=== PATIENT | male | born 1955 | race Caucasian/White ===

== ENCOUNTER → 2016-03-13 | Outpatient (CLI) | payer BC ==
--- NOTE | 2016-03-16 09:36 | REP ---
RIGHT SHOULDER SERIES: Four views. HISTORY: Injury and a fall. Pain. FINDINGS: There is glenohumeral osteoarthritic spurring inferiorly and medially. Some soft tissue dystrophic calcification is seen at the superior aspect of the glenohumeral articulation adjacent to the acromion process. These changes are consistent with calcific tendonitis or bursitis. Glenohumeral and acromioclavicular joints are normally aligned. No fracture or subluxation is seen. IMPRESSION: Osteoarthritis and soft tissue periarticular calcification consistent with tendonitis or bursitis. No acute traumatic bony abnormality. Signed by Russel Avelar MD 03/16/2016 01:17 P
== END ==
LOC: M ADAMS 14:16
PROVIDERS: ATTEND Physician Assistant
DX: M25.511 Pain in right shoulder (principal)

== ENCOUNTER → 2016-03-30 | Outpatient (REF) | payer BC | LOC: M LAB REF 20:24 | PROVIDERS: ATTEND Physician Assistant Medical | DX: N39.0 Urinary tract infection, site not specified (principal) ==

== ENCOUNTER 2018-06-04 10:06 | Emergency (ER) | payer BC ==
[~2018-06-04] VITALS: Ht 180.3 cm; Wt 128.6 kg
[2018-06-04] MEDS ORDERED: CLON0.2T PO (11:22)
[2018-06-04] MEDS ORDERED: METO1TAB7 PO (11:22)
[2018-06-04] MEDS ORDERED: TAMS1CAP17 PO (11:22)
[2018-06-04] MEDS ORDERED: POTA10CA32 PO (11:22)
[2018-06-04] MEDS ORDERED: DICL75TA (11:22)
[2018-06-04] MEDS ORDERED: ADV250INH INH (11:22)
[2018-06-04] MEDS ORDERED: ATOR40TA75 PO (11:22)
[2018-06-04] MEDS ORDERED: TRAM50TA2 PO (11:22)
[2018-06-04] MEDS ORDERED: AMLO5TAB6 PO (11:22)
[2018-06-04] MEDS ORDERED: LOSA100T50 PO (11:22)
[2018-06-04] MEDS ORDERED: FURO20TA2 PO (11:22)
[2018-06-04] MEDS ORDERED: OMEP-221 PO (11:22)
[2018-06-04 12:12] LABS: HEMATOCRIT 40.7 % (42.0-52.0); MEAN CORPUSCULAR HEMOGLOBIN 30.5 pg (27.0-33.0); MEAN CORPUSCULAR HGB CONC 34.4 g/dl (32.0-36.5); MEAN CORPUSCULAR VOLUME 88.7 fl (80.0-96.0); PLATELET COUNT, AUTOMATED 267 10^3/uL (150-450); RED BLOOD COUNT 4.59 10^6/uL (4.30-6.10); WHITE BLOOD COUNT 4.4 10^3/uL (4.0-10.0)
[2018-06-04 12:15] LABS: ALBUMIN 3.3 GM/DL (3.2-5.2); ALT/SGPT 30 U/L (12-78); BILIRUBIN,DIRECT 0.3 MG/DL (0.0-0.2); BILIRUBIN,TOTAL 1.8 MG/DL (0.2-1.0); BLOOD UREA NITROGEN 10 MG/DL (7-18); CALCIUM LEVEL 8.2 MG/DL (8.8-10.2); CARBON DIOXIDE LEVEL 26 MEQ/L (21-32); CHLORIDE LEVEL 108 MEQ/L (98-107); CK-MB VALUE MASS < 1.0 NG/ML (<3.6); CPK CREATINE PHOSPHOKINASE 45 U/L (39-308); CREATININE FOR GFR 0.93 MG/DL (0.70-1.30); GLOMERULAR FILTRATION RATE > 60.0 (>49); GLUCOSE, FASTING 93 MG/DL (70-100); MB/CK RELATIVE INDEX 2.22 (< OR =4); POTASSIUM SERUM 3.4 MEQ/L (3.5-5.1); SODIUM LEVEL 142 MEQ/L (136-145); TOTAL PROTEIN 6.5 GM/DL (6.4-8.2); TROPONIN I < 0.02 NG/ML (< 0.10)
[2018-06-04 12:23] LABS: INR 0.95; PROTHROMBIN TIME 12.8 SECONDS (12.1-14.4)
[2018-06-04 12:24] LABS: PARTIAL THROMBOPLASTIN TIME 30.3 SECONDS (25.4-37.6)
[2018-06-04] MEDS ORDERED: POTASSIUM CHLORIDE 10 MEQ SR TABLET PO ONE (12:30)
[2018-06-04 12:32] LABS: ATYPICAL LYMPH 3 % (0-5); BASOPHILS 1 % (0-4); EOSINOPHILS 10 % (0-5); LYMPHOCYTES 16 % (16-52); MONOCYTES 8 % (0-8); NEUTROPHILS 62 % (35-75); PLATELET ESTIMATE NORMAL (NORMAL)
[2018-06-04] MEDS ORDERED: FUROSEMIDE 40 MG/4 ML VIAL (J1940) IV ONE (13:30)
[2018-06-04 13:43] VITALS: BP 123/63
--- NOTE | 2018-06-04 19:26 | ECGEPIP ---
Stationary ECG Study [facility] - ED Test Date: 2018-06-04 Pat Name: LIZETTE IRENE Department: Room: - Gender: M Limnologist: : [id number] Requested By: ELIJAH Fernández Order Number: [id number] Reading MD: Fantasma Sanchez Measurements Intervals [place] Rate: 76 P: 3 UT: 186 QRS: -18 QRSD: 94 T: 35 QT: 370 QTc: 418 Interpretive Statements SINUS RHYTHM INFERIOR MYOCARDIAL INFARCTION, PROBABLY OLD NO PRIORS FOR COMPARISON Electronically Signed On 06-04-2018 19:25:49 EDT by Fantasma Sanchez
--- NOTE | 2018-06-05 09:30 | REP ---
Chest x-ray: Two views. History: Leg edema. Comparison study: June 22, 2010. Findings: Right hemidiaphragm has a somewhat scalloped appearance unchanged from comparison studies. EKG monitoring electrodes overlie the chest. The lungs are well inflated and clear. Pleural angles are sharp. Heart is not enlarged. Pulmonary vasculature is not increased. No significant bony abnormality is seen. Impression: No active disease. Somewhat scalloped appearance of the right hemidiaphragm unchanged. Electronically Signed by Russel Avelar MD 06/04/2018 12:17 P
--- NOTE | 2018-06-05 09:31 | REP ---
Duplex extremity venous ultrasound: Bilateral lower extremities. History: Edema. Rule out DVT. Findings: The deep veins are anechoic and fully compressible from the groin to the popliteal fossa in the left and right lower extremity. Color flow imaging is homogeneous. Spectral Doppler interrogation demonstrates intact respiratory variation in flow and normal manual augmentation of flow. There is no evidence of deep vein thrombosis. Impression: Negative bilateral lower extremity duplex venous ultrasound. No evidence of deep vein thrombosis. Electronically Signed by Rsusel Avelar MD 06/04/2018 01:01 P
== END 2018-06-04 14:17 | disposition home or self-care (01) ==
LOC: M ED 10:06
DX: R60.0 Localized edema (principal); I10 Essential (primary) hypertension; J45.909 Unspecified asthma, uncomplicated; E78.9 Disorder of lipoprotein metabolism, unspecified; Z79.899 Other long term (current) drug therapy
CPT/HCPCS: 36415; 71046; 80048; 80076; 82550; 82553; 84439; 84443; 84484; 85025; 85610; 85730; 93005; 93041; 93970; 94760; 96374; 99284; J1940

== ENCOUNTER → 2018-11-22 | Outpatient (REF) | payer BC ==
[~2018-11-22] MED LIST: ADV250INH INH; AMLO5TAB6 PO; ATOR40TA75 PO; CLON0.2T PO; DICL75TA; FURO20TA2 PO; LOSA100T50 PO; METO1TAB7 PO; OMEP-221 PO; POTA10CA32 PO; TAMS1CAP17 PO; TRAM50TA2 PO
== END ==
LOC: M LAB REF 16:11
PROVIDERS: ATTEND Nurse Practitioner Adult Health
DX: E78.00 Pure hypercholesterolemia, unspecified (principal)

== ENCOUNTER → 2019-05-30 | Outpatient (CLI) | payer BC ==
[~2019-05-30] MED LIST changes: +PROHANCE 279.3MG/ML 15ML VIAL (A9576) As Ordered ONE; +PROHANCE 279.3MG/ML 5ML VIAL (A9576) As Ordered ONE
--- NOTE | 2019-05-30 11:50 | REP ---
MRI BRAIN AND INTERNAL AUDITORY CANALS WITHOUT AND WITH IV CONTRAST: HISTORY: Sudden idiopathic hearing loss left ear. 20 mL of intravenous Isovue 370 is administered. MRI TECHNIQUE: Axial, coronal and sagittal imaging planes were utilized. Thin section images are included through the posterior fossa before and after contrast. Sequences include spin-echo, FLAIR, turbo spin-echo, diffusion, and gradient echo images. MRI FINDINGS: Craniocervical junction and upper cervical cord are normal in appearance. No bony calvarial lesion is seen. The paranasal sinuses appear clear. No intraorbital abnormality is seen. Deep facial and skull base soft tissues are unremarkable. Lateral, third, and fourth ventricles are normal in size and position. Hooks-white differentiation pattern is normal above and below the tentorium. Thin section T2-weighted scans demonstrate normal seventh and eighth nerves in the internal auditory canals. The IACs are normal and symmetric in size and shape. No CP angle cistern mass lesion is seen. Vestibular and cochlear apparatus are unremarkable and symmetric. Diffusion weighted scans show no evidence of restricted diffusion to suggest acute ischemia. No infarct or mass is seen. Postcontrast images including thin sections through the posterior fossa show no abnormal intercanalicular or extra canalicular contrast enhancement. Whole brain postcontrast images show enhancement in normal vasculature. No abnormal intracranial contrast enhancement is appreciated. IMPRESSION: Negative MRI study of the brain and internal auditory canals with pre and postcontrast imaging. Electronically Signed by Russel Avelar MD 05/30/2019 12:14 P
== END ==
LOC: M RAD 09:32
PROVIDERS: ATTEND Specialist
DX: H91.22 Sudden idiopathic hearing loss, left ear (principal)
CPT/HCPCS: 70553; A9576

== ENCOUNTER 2020-01-16 07:20 | Observation (INO) | payer BC ==
[~2020-01-16] VITALS: Ht 180.3 cm; Wt 126.0 kg
[~2020-01-16 07:20] MED LIST changes: +AMLO1TAB24 PO; -AMLO5TAB6 PO; -PROHANCE 279.3MG/ML 15ML VIAL (A9576) As Ordered ONE; -PROHANCE 279.3MG/ML 5ML VIAL (A9576) As Ordered ONE
[2020-01-16] MEDS ORDERED: FLUT1BLS2 INH (07:43)
[2020-01-16] MEDS ORDERED: ALBU8.5H PO (07:43)
[2020-01-16] MEDS ORDERED: CLONI1TA PO (07:43)
[2020-01-16] MEDS ORDERED: ATOR40TA75 PO (07:43)
[2020-01-16] MEDS ORDERED: TRIA37.5 PO (07:43)
--- NOTE | 2020-01-16 07:53 | REPVR ---
PROCEDURE INFORMATION: Exam: CT Head Without Contrast Exam date and time: 01/16/2020 7:44 AM Age: 64 years old Clinical indication: Pain; Headache; Additional info: CVA TECHNIQUE: Imaging protocol: Computed tomography of the head without contrast. Radiation optimization: All CT scans at this facility use at least one of these dose optimization techniques: automated exposure control; mA and/or kV adjustment per patient size (includes targeted exams where dose is matched to clinical indication); or iterative reconstruction. Other technique: STROKE PROTOCOL was implemented. COMPARISON: OT MRI IAC'S W/O FOLL WITH CON 05/30/2019 10:10 AM FINDINGS: Brain: Symmetric prominence of the frontal sulci. No acute cortical infarct, mass effect, or intracranial hemorrhage. Cerebral ventricles: Normal configuration of the ventricles. Bones/joints: No acute calvarial pathology. Paranasal sinuses: No sinus fluid. Mastoid air cells: No mastoid effusion. Soft tissues: Unremarkable soft tissues. IMPRESSION: No acute intracranial pathology. ASSESSMENT: ASPECTS ([place] Stroke Program Early CT Score) is 10. THIS REPORT CONTAINS FINDINGS THAT MAY BE CRITICAL TO PATIENT CARE. The findings were verbally communicated via telephone conference with ERIC Knight at 7:53 AM EST on 01/16/2020. The findings were acknowledged and understood. Electronically signed by: Chucho Gamez On 01/16/2020 07:53:33 AM
[2020-01-16] MEDS ORDERED: ASPIRIN 81 MG CHEW TABLET PO ONE (08:15)
[2020-01-16] MEDS ORDERED: CLOPIDOGREL 75 MG TAB PO ONE (08:15)
[2020-01-16] MEDS ORDERED: ISOVUE-370 76% 100ML VIAL As Ordered ONE (08:18)
[2020-01-16 08:29] LABS: HEMATOCRIT 42.8 % (42.0-52.0); HEMOGLOBIN 14.6 g/dl (13.5-17.5); MEAN CORPUSCULAR HEMOGLOBIN 30.7 pg (27.0-33.0); MEAN CORPUSCULAR HGB CONC 34.1 g/dl (32.0-36.5); MEAN CORPUSCULAR VOLUME 89.9 fl (80.0-96.0); PLATELET COUNT, AUTOMATED 450 10^3/uL (150-450); RED BLOOD COUNT 4.76 10^6/uL (4.30-6.10); WHITE BLOOD COUNT 4.9 10^3/uL (4.0-10.0)
[2020-01-16] MEDS ORDERED: CLON0.2T PO (08:30)
[2020-01-16] MEDS ORDERED: NIACCAP PO (08:34)
[2020-01-16] MEDS ORDERED: MAGN100T PO (08:34)
[2020-01-16] MEDS ORDERED: FLON1SPR NARES (08:34)
[2020-01-16] MEDS ORDERED: TRAM50TA2 PO (08:34)
[2020-01-16 08:39] LABS: INR 0.95; PROTHROMBIN TIME 12.9 SECONDS (12.5-14.3)
[2020-01-16 08:40] LABS: PARTIAL THROMBOPLASTIN TIME 30.7 SECONDS (24.2-38.5)
--- NOTE | 2020-01-16 08:54 | REP ---
INDICATION: CVA COMPARISON: None. TECHNIQUE: Portable AP view of the chest FINDINGS: The mediastinum and cardiac silhouette are stable and within normal limits for portable technique. The lung garner are clear without acute consolidation, effusion, or pneumothorax. Skeletal structures are intact. IMPRESSION: No acute cardiopulmonary process appreciated. <Electronically signed by Chuck Soler > 01/16/20 [id number]
[2020-01-16 08:56] LABS: CK-MB VALUE MASS < 1.0 NG/ML (<3.6); CPK CREATINE PHOSPHOKINASE 92 U/L (39-308); MB/CK RELATIVE INDEX 1.09 (< OR =4); TROPONIN I < 0.02 NG/ML (< 0.10)
--- NOTE | 2020-01-16 09:06 | REPVR ---
PROCEDURE INFORMATION: Exam: CT Angiography Neck With Contrast Exam date and time: 01/16/2020 8:23 AM Age: 64 years old Clinical indication: Pain; Additional info: Multiple tias TECHNIQUE: Imaging protocol: Computed tomography angiography of the neck with intravenous contrast. 3D rendering (Not supervised by radiologist): MIP and/or 3D reconstructed images were created by the technologist. Radiation optimization: All CT scans at this facility use at least one of these dose optimization techniques: automated exposure control; mA and/or kV adjustment per patient size (includes targeted exams where dose is matched to clinical indication); or iterative reconstruction. Contrast material: ISO 370; Contrast volume: 75 ml; Contrast route: INTRAVENOUS (IV); COMPARISON: No relevant prior studies available. FINDINGS: Right common carotid artery: No stenosis. No dissection or occlusion. Right internal carotid artery: No stenosis of the extracranial segment. No dissection or occlusion. Right external carotid artery: No occlusion or stenosis of the origin. Right vertebral artery: No stenosis. No dissection or occlusion. Left common carotid artery: No stenosis. No dissection or occlusion. Left internal carotid artery: No stenosis of the extracranial segment. No dissection or occlusion. Left external carotid artery: No occlusion or stenosis of the origin. Left vertebral artery: No stenosis. No dissection or occlusion. Bones/joints: Multilevel degenerative disease. Mild facet arthropathy. Soft tissues: Normal. No significant soft tissue swelling. Lungs: Bilateral dependent atelectasis. IMPRESSION: No acute findings. REFERENCES: NASCET CRITERIA. The degree of internal carotid artery stenosis is based on NASCET criteria. Normal is no stenosis. Mild is less than 50% stenosis. Moderate is 50-69% stenosis. Severe is 70% to 99% stenosis. Total occlusion is no detectable patent lumen. Electronically signed by: Ron Finley On 01/16/2020 09:06:34 AM
--- NOTE | 2020-01-16 09:12 | REPVR ---
PROCEDURE INFORMATION: Exam: CT Angiography Head With Contrast Exam date and time: 01/16/2020 8:23 AM Age: 64 years old Clinical indication: Pain; Additional info: Multiple tias TECHNIQUE: Imaging protocol: Computed tomography angiography of the head with intravenous contrast. 3D rendering (Not supervised by radiologist): MIP and/or 3D reconstructed images were created by the technologist. Radiation optimization: All CT scans at this facility use at least one of these dose optimization techniques: automated exposure control; mA and/or kV adjustment per patient size (includes targeted exams where dose is matched to clinical indication); or iterative reconstruction. Contrast material: ISO 370; Contrast volume: 75 ml; Contrast route: INTRAVENOUS (IV); COMPARISON: CT Head without contrast 01/16/2020 7:40 AM FINDINGS: ANTERIOR CIRCULATION: Right internal carotid artery: Unremarkable. Intracranial segment is patent with no significant stenosis. No aneurysm. Right middle cerebral artery: Unremarkable. No occlusion or significant stenosis. No aneurysm. Right anterior cerebral artery: Unremarkable. No occlusion or significant stenosis. No aneurysm. Left internal carotid artery: Unremarkable. Intracranial segment is patent with no significant stenosis. No aneurysm. Left middle cerebral artery: Unremarkable. No occlusion or significant stenosis. No aneurysm. Left anterior cerebral artery: Unremarkable. No occlusion or significant stenosis. No aneurysm. POSTERIOR CIRCULATION: Right vertebral artery: Unremarkable. No occlusion or significant stenosis. No aneurysm. Left vertebral artery: Unremarkable. No occlusion or significant stenosis. No aneurysm. Basilar artery: Unremarkable. No occlusion or significant stenosis. No aneurysm. Right posterior cerebral artery: Unremarkable. No occlusion or significant stenosis. No aneurysm. Left posterior cerebral artery: origin of the left posterior cerebral artery. Brain: No definite mass, mass effect, or midline shift. Cerebral ventricles: No ventriculomegaly. Bones/joints: Unremarkable. No acute fracture. Soft tissues: Unremarkable. IMPRESSION: No acute findings. Electronically signed by: Ron Finley On 01/16/2020 09:11:59 AM
[2020-01-16 09:27] LABS: ATYPICAL LYMPH 4 % (0-5); EOSINOPHILS 4 % (0-3); LYMPHOCYTES 16 % (16-44); MONOCYTES 14 % (0-5); NEUTROPHILS 54 % (28-66); PLATELET ESTIMATE NORMAL (NORMAL)
[2020-01-16] MEDS ORDERED: traMADol 50 MG TAB PO PRN (09:45)
[2020-01-16] MEDS ORDERED: ALBUTEROL 90 MCG/ACT 8GM HFA INHALER INH PRN (09:45)
--- NOTE | 2020-01-16 09:54 | HPEPDOC ---
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 She was talking to himself and writing down the milage she felt like his left side of the face felt droopy and numb, including the lips and he had some slurred speech which lasted for about 2 minutes. He sat down on the chair hit when away at 6 AM someone who works with him had arrived, he was telling him what to do when again he had an episode of slurred speech lasting for about 2 minutes, which also went away after he sat down, 10 minutes later when he got up, it hit him again the other worker went to his boss to alert him that something was wrong and he was then brought into the emergency room. Patient's glucose in the ER was 88. EKG was sinus rhythm. CT of the head, CTA of the brain were all negative. Patient was given aspirin 325 mg and 1 dose of Plavix. Neurologist, Dr. Jacob recommended observation overnight. MRI, MRA of the brain as well as MRA of the carotids. Hospitalist was called to admit the patient. Patient has had no prior episodes in the past of these neurological symptoms. He denies bilateral upper or lower extremity weakness, numbness or tingling sensation. He denies any fever, chills, cough, shortness of breath, nausea, vomiting, diarrhea, impending doom, chest pain, pressure, tightness, palpitations, lightheadedness or dizziness. Has had no other prodromal symptoms. Patient denies any history of diabetes with glucose of 88 on arrival in the emergency room. He otherwise denies any bright red blood per rectum, melena, black tarry stools, polyuria, polyphagia, weight gain, weight loss, dysuria, urgency, frequency and has no other complaints. No coVId exposu re. PAST MEDICAL HISTORY: obese hypertension, asthma, hypercholesterolemia, COCO, vertigo, PAST SURGICAL HISTORY: None SOCIAL HISTORY: Denies tobacco, alcohol, recreational drug use. Works for a [employer] FAMILY HISTORY: . Father at the age of 54. Hypertension, unknown cause of . Mother age 73. Alzheimer's dementia and hypertension ALLERGIES: Please see below. REVIEW OF SYSTEMS: 10 point review of systems negative aside from positive findings in HPI HOME MEDICATIONS: Please see below. ALLERGIES: SEE BELOW PHYSICAL EXAMINATION: VITAL SIGNS: See below GENERAL APPEARANCE: Awake, alert, oriented 3, answering questions appropriately. No respiratory distress. Anicteric. No jaundice HEENT: Pupils equally round, reactive to light accommodation. Extra muscles are intact. Normocephalic, atraumatic. Neck is supple, full range of motion. No cervical lymphadenopathy, thyromegaly. Moist mucous membranes. No JVD. No pharyngeal erythema. Face is symmetric. Tongue is midline. No facial drooping CARDIOVASCULAR: S1, S2, sinus rhythm, no murmurs, rubs or gallops. Nondisplaced point of maximal impulse LUNGS: Air entry is equal bilaterally. No kyphoscoliosis. No adventitious breath sounds clear to auscultation bilaterally. No wheezing, rales or rhonchi ABDOMEN: Obese, soft, nontender, nondistended, positive bowel sounds 4 quadrants. No rebound, guarding, no hepatosplenomegaly. No abdominal bruit. No CVA tenderness EXTREMITIES: 1+ pitting edema bilateral lower extremities. No cyanosis or clubbing NEUROLOGICAL: Gait was not tested awake, alert, oriented 3. Face is symmetric. Tongue is midline. No pronator drift. No dysmetria on finger to nose testing, pu pils equally round, reactive to light accommodation. Extra muscles are intact. No change in sensation, motor function is 5 out of 54 extremities. No horizontal or vertical nystagmus EKG SINUS RHYTHM, VENTRICULAR RATE OF 68, IA INTERVAL 191, QRS 91, QTC 398, QTC 415 LABORATORY DATA: See below. IMAGING: THIS REPORT CONTAINS FINDINGS THAT MAY BE CRITICAL TO PATIENT CARE. The findings were verbally communicated by me to ERIC SLADE via telephone conference at 9:12 AM EST on 01/16/2020. The findings were acknowledged and understood. Electronically signed by: Ron Arevalo On 01/16/2020 09:12:23 AM DD: RON AREVALO MD 01/16/20822 DT: STAN 01/16/20911 DS: SHKSE 01/16/20911 PROCEDURE INFORMATION: Exam: CT Angiography Neck With Contrast Exam date and time: 01/16/2020 8:23 AM Age: 64 years old Clinical indication: Pain; Additional info: Multiple tias TECHNIQUE: Imaging protocol: Computed tomography angiography of the neck with intravenous contrast. 3D rendering (Not supervised by radiologist): MIP and/or 3D reconstructed images were created by the technologist. Radiation optimization: All CT scans at this facility use at least one of these dose optimization techniques: automated exposure control; mA and/or kV adjustment per patient size (includes targeted exams where dose is matched to clinical indication); or iterative reconstruction. Contrast material: ISO 370; Contrast volume: 75 ml; Contrast route: INTRAVENOUS (IV); COMPARISON: No relevant prior studies available. FINDINGS: Right common carotid artery: No stenosis. No dissection or occlusion. Right internal carotid artery: No stenosis of the extracranial segment. No dissection or occlusion. Right external carotid artery: No occlusion or stenosis of the origin. Right vertebral artery: No stenosis. No dissection or occlusion. Left common carotid artery: No stenosis. No dissection or occlusion. Left internal carotid artery: No stenosis of the extracranial segment. No dissection or occlusion. Left external carotid artery: No occlusion or stenosis of the origin. Left vertebral artery: No stenosis. No dissection or occlusion. Bones/joints: Multilevel degenerative disease. Mild facet arthropathy. Soft tissues: Normal. No significant soft tissue swelling. Lungs: Bilateral dependent atelectasis. IMPRESSION: No acute findings. INDICATION: CVA COMPARISON: None. TECHNIQUE: Portable AP view of the chest FINDINGS: The mediastinum and cardiac silhouette are stable and within normal limits for portable technique. The lung garner are clear without acute consolidation, effusion, or pneumothorax. Skeletal structures are intact. IMPRESSION: No acute cardiopulmonary process appreciated. <Electronically signed by Chuck Soler > 01/16/2049 PROCEDURE INFORMATION: Exam: CT Head Without Contrast Exam date and time: 01/16/2020 7:44 AM Age: 64 years old Clinical indication: Pain; Headache; Additional info: CVA TECHNIQUE: Imaging protocol: Computed tomography of the head without contrast. Radiation optimization: All CT scans at this facility use at least one of these dose optimization techniques: automated exposure control; mA and/or kV adjustment per patient size (includes targeted exams where dose is matched to clinical indication); or iterative reconstruction. Other technique: STROKE PROTOCOL was implemented. COMPARISON: OT MRI IAC'S W/O FOLL WITH CON 05/30/2019 10:10 AM FINDINGS: Brain: Symmetric prominence of the frontal sulci. No acute cortical infarct, mass effect, or intracranial hemorrhage. Cerebral ventricles: Normal configuration of the ventricles. Bones/joints: No acute calvarial pathology. Paranasal sinuses: No sinus fluid. Mastoid air cells: No mastoid effusion. Soft tissues: Unremarkable soft tissues. IMPRESSION: No acute intracranial pathology. ASSESSMENT: ASPECTS ([place] Stroke Program Early CT Score) is 10. THIS REPORT CONTAINS FINDINGS THAT MAY BE CRITICAL TO PATIENT CARE. The findings were verbally communicated via telephone conference with ERIC Knight at 7:53 AM EST on 01/16/2020. The findings were acknowledged and understood. Electronically signed by: Chucho Gamez On 01/16/2020 07:53:33 AM MICROBIOLOGY: Please see below. 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 She was talking to himself and writing down the milage she felt like his left side of the face felt droopy and numb, including the lips and he had some slurred speech which lasted for about 2 minutes. He sat down on the chair hit when away at 6 AM someone who works with him had arrived, he was telling him what to do when again he had an episode of slurred speech lasting for about 2 minutes, which also went away after he sat down, 10 minutes later when he got up, it hit him again the other worker went to his boss to alert him that something was wrong and he was then brought into the emergency room. Patient's glucose in the ER was 88. EKG was sinus rhythm. CT of the head, CTA of the brain were all negative. Patient was given aspirin 325 mg and 1 dose of Plavix. Neurologist, Dr. Jacob recommended observation overnight. MRI, MRA of the brain as well as MRA of the carotids. Hospitalist was called to admit the patient. Patient has had no prior episodes in the past of these neurological symptoms. He denies bilateral upper or lower extremity weakness, numbness or tingling sensation. He denies any fever, chills, cough, shortness of breath, nausea, vomiting, diarrhea, impending doom, chest pain, pressure, tightness, palpitations, lightheadedness or dizziness. Has had no other prodromal symptoms. Patient denies any history of diabetes with glucose of 88 on arrival in the emergency room. He otherwise denies any bright red blood per rectum, melena, bl ack tarry stools, polyuria, polyphagia, weight gain, weight loss, dysuria, urgency, frequency and has no other complaints. No cOVId exposure. Transient ischemic attack with slurred speech and left facial droop resolved Hypertension Hypercholesterolemia Obesity COCO Vertigo PLAN: Patient will be admitted for observation. We'll obtain MRI/MRA of the brain and MRA of the carotids. Telemetry monitoring to rule out A. fib or a flutter echocardiogram, neuro checks every 4 hourly. Patient be continued and aspirin 81 mg and Plavix 75 mg statin medications daily. Neurology, Dr. JACOB has been consulted. Patient has no neurological symptoms at this time and back to baseline mentation and motor function. Check A1c, lipid panel and thyroid profile in the morning. Resume all other home medications. If positive for CVA and MRI. I'll offer permissive hypertension and hold his blood pressure medications to allow for adequate cerebral perfusion. DVT prophylaxis with Lovenox subcutaneous. CT head shows no intracranial hemorrhage. Supportive care. Monitor for worsening symptoms. Check orthostatic hypotension. Patient is a full code Vital Signs Vital Signs Date Time Temp Pulse Resp B/P (MAP) Pulse Ox O2 Delivery O2 Flow Rate FiO2 01/16/20 08:05 75 98 01/16/20 08:00 148/75 (99) 01/16/20 07:32 18 Room Air 01/16/20 07:20 97.6 Laboratory Data Labs 24H Laboratory Tests 2 01/16/20 07:32: Bedside Glucose (Misc Panel) 92 01/16/20 08:05: POC Glucose (Misc Panel) 88, POC Sodium (Misc Panel) 141, POC Potassium (Misc Panel) 3.4L, POC Chloride (Misc Panel) 103, POC Total CO2 (Misc Panel) 27.0, POC Blood Urea Nitrogen (Misc Panel 17, POC Ionized Calcium (Misc Panel) 4.8, POC Creatinine (Misc Panel) 1.7H, POC Hematocrit (Misc Panel) 42.0 01/16/20 08:06: Immature Granulocyte % (Auto) , Neutrophils (%) (Auto) , Nucleated Red Blood Cells % (auto) 0.0, Neutrophils 54, Band Neutrophils 8, Lymphocytes (Manual) 16, Monocytes (Manual) 14H, Eosinophils (Manual) 4H, Atypical Lymphocytes 4, Platelet Estimate NORMAL, Prothrombin Time 12.9, Prothromb Time International Ratio 0.95, Activated Partial Thromboplast Time 30.7, Total Creatine Kinase 92, Creatine Kinase MB < 1.0, Creatine Kinase MB Relative Index 1.09, Troponin I < 0.02 01/16/20 09:09: CBC/BMP Laboratory Tests 01/16/20 08:06 Home Medications Scheduled Amlodipine Besylate (Amlodipine Besylate) 5 Mg Tablet, 5 MG PO DAILY Atorvastatin Calcium (Atorvastatin Calcium) 40 Mg Tablet, 40 MG PO DAILY Clonidine HCl (Clonidine HCl) 0.2 Mg Tablet, 0.2 MG PO QPM Fluticasone Propion/Salmeterol ([place]ixela 250-50 Inhub) 1 Each Blst.w.dev, 1 PUFF INH BID Fluticasone Propionate (Flonase Allergy Relief) 9.9 [place]l [place].susp, 2 SPRAY NARES DAILY Losartan Potassium (Losartan Potassium) 100 Mg Tablet, 100 MG PO DAILY Magnesium Citrate (Magnesium Citrate) 100 Mg Tablet, 100 MG PO DAILY Metoprolol Succinate (Metoprolol Succinate) 50 Mg Tab.er.24h, 50 MG PO DAILY Niacin (Inositol Niacinate) (Niacin 500 mg Capsule) 500 Mg Capsule, 500 MG PO DAILY Omeprazole (Omeprazole) 40 Mg Capsule.dr, 40 MG PO DAILY Tamsulosin Hcl (Tamsulosin HCl) 0.4 Mg Capsule, 40 MG PO DAILY Triamterene/Hydrochlorothiazid (Triamterene-Hctz 37.5-25 mg Tb) 1 Each Tablet, 1 TAB PO BID Scheduled PRN Albuterol Sulfate (Albuterol Sulfate Hfa) 8.5 Gm Hfa.aer.ad, 2 PUFFS PO QID PRN for SHORTNESS OF BREATH Tramadol HCl (Tramadol HCl) 50 Mg Tablet, 50 MG PO BID PRN for PAIN Allergies Coded Allergies: No Known Allergies (Unverified , 06/04/18) A-FIB/CHADSVASC A-FIB History Current/History of A-Fib/PAF?: No Current PO Anticoag Therapy: No Age/Risk Factor Scoring CHADSVASC: CHADSVASC Response (Comments) Value Age Risk Factor Age < 65 years old 0 Gender Risk Factor Male 0 Hx of CHF No 0 Hx of HTN Yes 1 Hx of Stroke/TIA/or VTE No 0 Hx of Diabetes No 0 Hx of Vascular Disease No 0 Total 1 Treatment Treatment ordered: NONE OTIS KEATING MD Jan 16, 2020 09:53
[2020-01-16 11:49] VITALS: BP 144/82
--- NOTE | 2020-01-16 11:56 | REPVR ---
PROCEDURE INFORMATION: Exam: MR Angiography Neck Without Contrast Exam date and time: 01/16/2020 11:07 AM Age: 64 years old Clinical indication: Speech disturbance and weakness and other: Facial droop slurred speech TECHNIQUE: Imaging protocol: Magnetic resonance angiography of the neck without contrast. 3D rendering (Not supervised by radiologist): MIP and/or 3D reconstructed images were created by the technologist. COMPARISON: CT ANGIO NECK 01/16/2020 8:19 AM FINDINGS: Right common carotid artery: No stenosis. No dissection or occlusion. Right internal carotid artery: No stenosis of the extracranial segment. No dissection or occlusion. Right external carotid artery: No stenosis. No dissection or occlusion of the origin. Right vertebral artery: No stenosis. No dissection or occlusion. Left common carotid artery: No stenosis. No dissection or occlusion. Left internal carotid artery: No stenosis of the extracranial segment. No dissection or occlusion. Left external carotid artery: No stenosis. No dissection or occlusion of the origin. Left vertebral artery: No stenosis. No dissection or occlusion. IMPRESSION: No stenosis or occlusion. REFERENCES: NASCET CRITERIA. The degree of internal carotid artery stenosis is based on NASCET criteria. Normal is no stenosis. Mild is less than 50% stenosis. Moderate is 50-69% stenosis. Severe is 70% to 99% stenosis. Total occlusion is no detectable patent lumen. Electronically signed by: Lilian Lemos On 01/16/2020 11:56:41 AM
--- NOTE | 2020-01-16 11:58 | REPVR ---
PROCEDURE INFORMATION: Exam: MR Angiogram Head Without Contrast, Arteries Exam date and time: 01/16/2020 11:07 AM Age: 64 years old Clinical indication: Speech disturbance and weakness; Slurred speech; Additional info: Facial droop slurred speech TECHNIQUE: Imaging protocol: MR angiogram head without contrast. Exam focused on the arteries. 3D rendering (Not supervised by radiologist): MIP and/or 3D reconstructed images were created by the technologist. COMPARISON: CT ANGIO HEAD 01/16/2020 8:19 AM FINDINGS: ANTERIOR CIRCULATION: Right internal carotid artery: Intracranial segment is patent with no significant stenosis. No aneurysm. Right middle cerebral artery: No occlusion or significant stenosis. No aneurysm. Right anterior cerebral artery: No occlusion or significant stenosis. No aneurysm. Left internal carotid artery: Intracranial segment is patent with no significant stenosis. No aneurysm. Left middle cerebral artery: No occlusion or significant stenosis. No aneurysm. Left anterior cerebral artery: No occlusion or significant stenosis. No aneurysm. POSTERIOR CIRCULATION: Right vertebral artery: No occlusion or significant stenosis. No aneurysm. Left vertebral artery: No occlusion or significant stenosis. No aneurysm. Basilar artery: No occlusion or significant stenosis. No aneurysm. Right posterior cerebral artery: No occlusion or significant stenosis. No aneurysm. Left posterior cerebral artery: There is a origin of the left posterior cerebral artery. No occlusion or significant stenosis. No aneurysm. IMPRESSION: No stenosis or occlusion. Electronically signed by: Lilian Lemos On 01/16/2020 11:58:22 AM
--- NOTE | 2020-01-16 12:02 | REPVR ---
PROCEDURE INFORMATION: Exam: MR Head Without Contrast Exam date and time: 01/16/2020 11:07 AM Age: 64 years old Clinical indication: Speech disturbance and other: Facial droop slurred speech TECHNIQUE: Imaging protocol: MR of the head without contrast. COMPARISON: CT Head without contrast 01/16/2020 7:40 AM FINDINGS: Brain: There is no extra-axial collection or intra-axial mass. There are foci of increased T2/FLAIR hyperintensity within the periventricular and subcortical white matter, nonspecific but typically small-vessel ischemia in this age group. There is no diffusion restriction. Cerebral ventricles: Normal. No ventriculomegaly. Bones/joints: Unremarkable. Paranasal sinuses: Normal as visualized. No acute sinusitis. Mastoid air cells: Normal as visualized. No mastoid effusion. Orbits: Unremarkable. Soft tissues: Unremarkable. IMPRESSION: No acute findings. Electronically signed by: Lilian Lemos On 01/16/2020 12:02:35 PM
[2020-01-16 15:50] VITALS: BP 127/80
[2020-01-16] MEDS ORDERED: ASPI81TAEC PO (18:16)
[2020-01-16] MEDS ORDERED: CLOP75TA2 PO (18:16)
--- NOTE | 2020-01-16 18:22 | DS.PDOC ---
Discharge Summary General Date of Admission Jan 16, 2020 at 07:21 Date of Discharge 01/16/20 EXPLOSIVE OPERATOR: NEUROLOGISTDR. CANDELARIA Discharge Summary DISCHARGE DIAGNOSES: Transient ischemic attack with slurred speech and left facial droop resolved Hypertension Hypercholesterolemia Obesity COCO Vertigo DISCHARGE MEDICATIONS: SEE BELOW DISCHARGE INSTRUCTIONS: Follow-up with neurology, Dr. Jacob in 1-2 weeks. Patient is to continue on aspirin and Plavix. Echocardiogram to be scheduled by his primary care physician PCP appointment within 1 week. Return to the ER for recurrent symptoms. 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 She was talking to himself and writing down the milage she felt like his left side of the face felt droopy and numb, including the lips and he had some slurred speech which lasted for about 2 minutes. He sat down on the chair hit when away at 6 AM someone who works with him had arrived, he was telling him what to do when again he had an episode of slurred speech lasting for about 2 minutes, which also went away after he sat down, 10 minutes later when he got up, it hit him again the other worker went to his boss to alert him that something was wrong and he was then brought into the emergency room. Patient's glucose in the ER was 88. EKG was sinus rhythm. CT of the head, CTA of the brain were all negative. Patient was given aspirin 325 mg and 1 dose of Plavix. Neurologist, Dr. Jacob recommended observation overnight. MRI, MRA of the brain as well as MRA of the carotids. Hospitalist was called to admit the patient. Patient has had no prior episodes in the past of these neurological symptoms. He denies bilateral upper or lower extremity weakness, numbness or tin gling sensation. He denies any fever, chills, cough, shortness of breath, nausea, vomiting, diarrhea, impending doom, chest pain, pressure, tightness, palpitations, lightheadedness or dizziness. Has had no other prodromal symptoms. Patient denies any history of diabetes with glucose of 88 on arrival in the emergency room. He otherwise denies any bright red blood per rectum, melena, black tarry stools, polyuria, polyphagia, weight gain, weight loss, dysuria, urgency, frequency and has no other complaints. No cOVId exposure.Patient was admitted for observation. Negative MRI/MRA of the brain and MRA of the carotids. Telemetry monitoring, ruled out A. fib or a flutter .chocardiogram, neuro checks every 4 hourly were ordered. Patient was continued on aspirin 81 mg and Plavix 75 mg statin medications daily. Neurology, Dr. JACOB was consulted. Patient has no neurological symptoms at this time and back to baseline mentation and motor function. Check A1c, lipid panel and thyroid profile in the morning. Resumed all other home medications. If positive for CVA and MRI. I'll offer permissive hypertension and hold his blood pressure medications to allow for adequate cerebral perfusion. DVT prophylaxis with Lovenox subcutaneous. CT head shows no intracranial hemorrhage. Supportive care. Monitor for worsening symptoms. Patient is a full code. Patient was seen by Dr. Jacob neurologist who recommended discharge home today since MRI/MRA of the brain were negative. Outpatient echocardiogram can be ordered by his primary care physician. DISCHARGE PHYSICAL EXAMINATION: VITAL SIGNS: See below GENERAL APPEARANCE: Awake, alert, oriented 3, answering questions appropriately. No respiratory distress. Anicteric. No jaundice HEENT: Pupils equally round, reactive to light accommodation. Extra muscles are intact. Normocephalic, atraumatic. Neck is supple, full range of motion. No cervical lymphadenopathy, thyromegaly. Moist mucous membranes. No JVD. No pharyngeal erythema. Face is symmetric. Tongue is midline. No facial drooping CARDIOVASCULAR: S1, S2, sinus rhythm, no murmurs, rubs or gallops. Nondisplaced point of maximal impulse LUNGS: Air entry is equal bilaterally. No kyphoscoliosis. No adventitious breath sounds clear to auscultation bilaterally. No wheezing, rales or rhonchi ABDOMEN: Obese, soft, nontender, nondistended, positive bowel sounds 4 quadrants. No rebound, guarding, no hepatosplenomegaly. No abdominal bruit. No CVA tenderness EXTREMITIES: 1+ pitting edema bilateral lower extremities. No cyanosis or clubbing NEUROLOGICAL: Gait was not tested awake, alert, oriented 3. Face is symmetric. Tongue is midline. No pronator drift. No dysmetria on finger to nose testing, pupils equally round, reactive to light accommodation. Extra muscles are intact. No change in sensation, motor function is 5 out of 54 extremities. No horizontal or vertical nystagmus EKG SINUS RHYTHM, VENTRICULAR RATE OF 68, AK INTERVAL 191, QRS 91, QTC 398, QTC 415 LABORATORY DATA: See below. IMAGING: THIS REPORT CONTAINS FINDINGS THAT MAY BE CRITICAL TO PATIENT CARE. The findings were verbally communicated by me to ERIC SLADE via telephone conference at 9:12 AM EST on 01/16/2020. The findings were acknowledged and understood. Electronically signed by: Ron Arevalo On 01/16/2020 09:12:23 AM DD: RON AREVALO MD 01/16/20822 DT: STAN 01/16/20911 DS: DEANA 01/16/20911 PROCEDURE INFORMATION: Exam: CT Angiography Neck With Contrast Exam date and time: 01/16/2020 8:23 AM Age: 64 years old Clinical indication: Pain; Additional info: Multiple tias TECHNIQUE: Imaging protocol: Computed tomography angiography of the neck with intravenous contrast. 3D rendering (Not supervised by radiologist): MIP and/or 3D reconstructed images were created by the technologist. Radiation optimization: All CT scans at this facility use at least one of these dose optimization techniques: automated exposure control; mA and/or kV adjustment per patient size (includes targeted exams where dose is matched to clinical indication); or iterative reconstruction. Contrast material: ISO 370; Contrast volume: 75 ml; Contrast route: INTRAVENOUS (IV); COMPARISON: No relevant prior studies available. FINDINGS: Right common carotid artery: No stenosis. No dissection or occlusion. Right internal carotid artery: No stenosis of the extracranial segment. No dissection or occlusion. Right external carotid artery: No occlusion or stenosis of the origin. Right vertebral artery: No stenosis. No dissection or occlusion. Left common carotid artery: No stenosis. No dissection or occlusion. Left internal carotid artery: No stenosis of the extracranial segment. No dissection or occlusion. Left external carotid artery: No occlusion or stenosis of the origin. Left vertebral artery: No stenosis. No dissection or occlusion. Bones/joints: Multilevel degenerative disease. Mild facet arthropathy. Soft tissues: Normal. No significant soft tissue swelling. Lungs: Bilateral dependent atelectasis. IMPRESSION: No acute findings. INDICATION: CVA COMPARISON: None. TECHNIQUE: Portable AP view of the chest FINDINGS: The mediastinum and cardiac silhouette are stable and within normal limits for portable technique. The lung garner are clear without acute consolidation, effusion, or pneumothorax. Skeletal structures are intact. IMPRESSION: No acute cardiopulmonary process appreciated. <Electronically signed by Chuck Benjaminberry > 01/16/20 0849 PROCEDURE INFORMATION: Exam: CT Head Without Contrast Exam date and time: 01/16/2020 7:44 AM Age: 64 years old Clinical indication: Pain; Headache; Additional info: CVA TECHNIQUE: Imaging protocol: Computed tomography of the head without contrast. Radiation optimization: All CT scans at this facility use at least one of these dose optimization techniques: automated exposure control; mA and/or kV adjustment per patient size (includes targeted exams where dose is matched to clinical indication); or iterative reconstruction. Other technique: STROKE PROTOCOL was implemented. COMPARISON: OT MRI IAC'S W/O FOLL WITH CON 05/30/2019 10:10 AM FINDINGS: Brain: Symmetric prominence of the frontal sulci. No acute cortical infarct, mass effect, or intracranial hemorrhage. Cerebral ventricles: Normal configuration of the ventricles. Bones/joints: No acute calvarial pathology. Paranasal sinuses: No sinus fluid. Mastoid air cells: No mastoid effusion. Soft tissues: Unremarkable soft tissues. IMPRESSION: No acute intracranial pathology. ASSESSMENT: ASPECTS ([place] Stroke Program Early CT Score) is 10. THIS REPORT CONTAINS FINDINGS THAT MAY BE CRITICAL TO PATIENT CARE. The findings were verbally communicated via telephone conference with ERIC Knight at 7:53 AM EST on 01/16/2020. The findings were acknowledged and understood. Electronically signed by: Chucho Gamez On 01/16/2020 07:53:33 AM PROCEDURE INFORMATION: Exam: MR Head Without Contrast Exam date and time: 01/16/2020 11:07 AM Age: 64 years old Clinical indication: Speech disturbance and other: Facial droop slurred speech TECHNIQUE: Imaging protocol: MR of the head without contrast. COMPARISON: CT Head without contrast 01/16/2020 7:40 AM FINDINGS: Brain: There is no extra-axial collection or intra-axial mass. There are foci of increased T2/FLAIR hyperintensity within the periventricular and subcortical white matter, nonspecific but typically small-vessel ischemia in this age group. There is no diffusion restriction. Cerebral ventricles: Normal. No ventriculomegaly. Bones/joints: Unremarkable. Paranasal sinuses: Normal as visualized. No acute sinusitis. Mastoid air cells: Normal as visualized. No mastoid effusion. Orbits: Unremarkable. Soft tissues: Unremarkable. IMPRESSION: No acute findings. Electronically signed by: Lilian Lemos On 01/16/2020 12:02:35 PM PROCEDURE INFORMATION: Exam: MR Angiogram Head Without Contrast, Arteries Exam date and time: 01/16/2020 11:07 AM Age: 64 years old Clinical indication: Speech disturbance and weakness; Slurred speech; Additional info: Facial droop slurred speech TECHNIQUE: Imaging protocol: MR angiogram head without contrast. Exam focused on the arteries. 3D rendering (Not supervised by radiologist): MIP and/or 3D reconstructed images were created by the technologist. COMPARISON: CT ANGIO HEAD 01/16/2020 8:19 AM FINDINGS: ANTERIOR CIRCULATION: Right internal carotid artery: Intracranial segment is patent with no significant stenosis. No aneurysm. Right middle cerebral artery: No occlusion or significant stenosis. No aneurysm. Right anterior cerebral artery: No occlusion or significant stenosis. No aneurysm. Left internal carotid artery: Intracranial segment is patent with no significant stenosis. No aneurysm. Left middle cerebral artery: No occlusion or significant stenosis. No aneurysm. Left anterior cerebral artery: No occlusion or significant stenosis. No aneurysm. POSTERIOR CIRCULATION: Right vertebral artery: No occlusion or significant stenosis. No aneurysm. Left vertebral artery: No occlusion or significant stenosis. No aneurysm. Basilar artery: No occlusion or significant stenosis. No aneurysm. Right posterior cerebral artery: No occlusion or significant stenosis. No aneurysm. Left posterior cerebral artery: There is a origin of the left posterior cerebral artery. No occlusion or significant stenosis. No aneurysm. IMPRESSION: No stenosis or occlusion. Electronically signed by: Lilian Lemos On 01/16/2020 11:58:22 AM MICROBIOLOGY: Please see below. TIME SPENT ON DISCHARGE 30 MINUTES Vital Signs/I&Os Vital Signs Date Time Temp Pulse Resp B/P (MAP) Pulse Ox O2 Delivery O2 Flow Rate FiO2 01/16/20 15:50 98.0 64 18 127/80 (96) 96 Room Air Laboratory Data Labs 24H Laboratory Tests 2 01/16/20 07:32: Bedside Glucose (Misc Panel) 92 01/16/20 08:05: POC Glucose (Misc Panel) 88, POC Sodium (Misc Panel) 141, POC Potassium (Misc Panel) 3.4L, POC Chloride (Misc Panel) 103, POC Total CO2 (Misc Panel) 27.0, POC Blood Urea Nitrogen (Misc Panel 17, POC Ionized Calcium (Misc Panel) 4.8, POC Creatinine (Misc Panel) 1.7H, POC Hematocrit (Misc Panel) 42.0 01/16/20 08:06: Immature Granulocyte % (Auto) , Neutrophils (%) (Auto) , Nucleated Red Blood Cells % (auto) 0.0, Neutrophils 54, Band Neutrophils 8, Lymphocytes (Manual) 16, Monocytes (Manual) 14H, Eosinophils (Manual) 4H, Atypical Lymphocytes 4, Platelet Estimate NORMAL, Prothrombin Time 12.9, Prothromb Time International Ratio 0.95, Activated Partial Thromboplast Time 30.7, Total Creatine Kinase 92, Creatine Kinase MB < 1.0, Creatine Kinase MB Relative Index 1.09, Troponin I < 0.02 01/16/20 09:09: Coronavirus (COVID-19)(PCR) NEGATIVE CBC/BMP Laboratory Tests 01/16/20 08:06 FSBS Laboratory Tests Test 01/16/20 07:32 Range/Units Bedside Glucose (Misc Panel) 92 80-115 MG/DL Discharge Medications Scheduled Amlodipine Besylate (Amlodipine Besylate) 5 Mg Tablet, 5 MG PO DAILY, (Reported) Aspirin (Aspirin EC) 81 Mg Tablet.dr, 81 MG PO DAILY Atorvastatin Calcium (Atorvastatin Calcium) 40 Mg Tablet, 40 MG PO DAILY, (Reported) Clonidine HCl (Clonidine HCl) 0.2 Mg Tablet, 0.2 MG PO QPM, (Reported) Clopidogrel Bisulfate (Clopidogrel) 75 Mg Tablet, 75 MG PO DAILY Fluticasone Propion/Salmeterol (Wixela 250-50 Inhub) 1 Each Blst.w.dev, 1 PUFF INH BID, (Reported) Fluticasone Propionate (Flonase Allergy Relief) 9.9 Ml [place].susp, 2 SPRAY NARES DAILY, (Reported) Losartan Potassium (Losartan Potassium) 100 Mg Tablet, 100 MG PO DAILY, (Reported) Magnesium Citrate (Magnesium Citrate) 100 Mg Tablet, 100 MG PO DAILY, (Reported) Metoprolol Succinate (Metoprolol Succinate) 50 Mg Tab.er.24h, 50 MG PO DAILY, (Reported) Niacin (Inositol Niacinate) (Niacin 500 mg Capsule) 500 Mg Capsule, 500 MG PO DAILY, (Reported) Omeprazole (Omeprazole) 40 Mg Capsule.dr, 40 MG PO DAILY, (Reported) Tamsulosin Hcl (Tamsulosin HCl) 0.4 Mg Capsule, 0.4 MG PO DAILY, (Reported) Triamterene/Hydrochlorothiazid (Triamterene-Hctz 37.5-25 mg Tb) 1 Each Tablet, 1 TAB PO BID, (Reported) Scheduled PRN Albuterol Sulfate (Albuterol Sulfate Hfa) 8.5 Gm Hfa.aer.ad, 2 PUFFS PO QID PRN for SHORTNESS OF BREATH, (Reported) Tramadol HCl (Tramadol HCl) 50 Mg Tablet, 50 MG PO BID PRN for PAIN, (Reported) Allergies Coded Allergies: No Known Allergies (Unverified , 06/04/18) OTIS KEATING MD Jan 16, 2020 18:21
[2020-01-16 19:35] VITALS: BP 161/90
[2020-01-16 19:54] VITALS: BP 161/90
[2020-01-16] MEDS ORDERED: FLUBLOK(EGG FREE)(QUAD)INFLUENZA VACC 0.5ML SYRINGE 18YRS & OLDER IM ONE (21:00)
[2020-01-16] MEDS ORDERED: cloNIDine 0.2 MG TAB PO SCH (21:00)
[2020-01-16] MEDS ORDERED: DYAZIDE 37.5/25 CAP (TRIAM/HCTZ) PO SCH (21:00)
--- NOTE | 2020-01-17 07:24 | ECGEPIP ---
[facility] - ED Test Date: 2020-01-16 Pat Name: LIZETTE IRENE Department: Room: [facility] Gender: Male [place]: Saulo : 1955 Requested By: Fantasma Walker Order Number: [id number] Reading MD: Lili Chiang Measurements Intervals [place] Rate: 68 P: 7 FL: 191 QRS: -16 QRSD: 91 T: 52 QT: 398 QTc: 425 Interpretive Statements SINUS RHYTHM WITH OCCASIONAL SUPRAVENTRICULAR PREMATURE COMPLEXES NONSPECIFIC T-WAVE ABNORMALITY INFERIOR INFARCT, OLD DECREASED RATE 06/04/18 Electronically Signed on 01-17-2020 7:23:58 EST by Lili Chiang
[2020-01-17] MEDS ORDERED: LOSARTAN 50MG TABLET PO SCH (09:00)
[2020-01-17] MEDS ORDERED: FLUTICASONE PROP 0.05% NASAL SPRAY 16 GM (FLONASE) NARES SCH (09:00)
[2020-01-17] MEDS ORDERED: TAMSULOSIN 0.4 MG CAP PO SCH (09:00)
[2020-01-17] MEDS ORDERED: CLOPIDOGREL 75 MG TAB PO SCH (09:00)
[2020-01-17] MEDS ORDERED: METOPROLOL SUCC (TopROL XL) 50MG **XL** TAB PO SCH (09:00)
[2020-01-17] MEDS ORDERED: ASPIRIN 81 MG ENTERIC TAB PO SCH (09:00)
[2020-01-17] MEDS ORDERED: ATORVASTATIN 20 MG TAB PO SCH (09:00)
[2020-01-17] MEDS ORDERED: amLODIPine 5 MG TAB PO SCH (09:00)
--- NOTE | 2020-01-18 10:35 | CR ---
CONSULTATION REASON FOR CONSULTATION: Possible transient ischemic attack (TIA). HISTORY OF PRESENT ILLNESS: Juanito Malcolm is a 64-year-old man with history of dyslipidemia, sleep apnea who presented to the emergency department with three episodes of slurred speech, facial numbness, and numbness and tingling of left arm. The patient stated that these episodes started around 5 a.m. He woke up at 3:30 a.m. and went to work. 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 He was talking to himself and writing down the mileage and felt slurred speech for a couple of minutes. The left side of face felt droopy and left arm felt numb and tingly. His symptoms lasted for a couple of minutes. He sat down on a chair and symptoms went away. When his colleague arrived at 6 a.m. and he was telling him what to do, he felt another episodes lasting for a couple of minutes. He again had to sit down and symptoms went away. He felt symptoms coming back again when he got up. His colleague went to tell their boss that there was something wrong and he was brought to the emergency department. His blood glucose was 88. I was consulted and patient was completely asymptomatic at that time. I recommended CT scan of head, CTA of head and neck with contrast. They were reported unremarkable. He was admitted for stroke workup. He denies any symptoms. He denies any headaches, neck pain, back pain, dysphagia, dysarthria, diplopia or urinary incontinence. PAST MEDICAL HISTORY: Obesity, hypertension, asthma, dyslipidemia, sleep apnea, vertigo. 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 He denies smoking, alcohol or illicit drugs. FAMILY HISTORY: Father's was at 54 years of age. He had hypertension. Mother at age 73. REVIEW OF SYSTEMS: All systems were reviewed and felt to be noncontributory other than as mentioned in history of present illness. ALLERGIES: None. HOME MEDICATIONS: 1. Amlodipine 5 mg p.o. daily 2. Lipitor 40 mg p.o. daily 3. Clonidine 0.2 mg p.o. daily 4. Wixela 250/50 mcg inhalation twice a day 5. Flonase nasal spray. 6. Losartan 100 mg p.o. daily 7. Magnesium citrate 100 mg p.o. daily 8. Metoprolol 50 mg p.o. daily 9. Niacin 500 mg p.o. daily 10. Omeprazole 40 mg p.o. daily 11. Flomax 0.4 mg p.o. daily 12. Triamterene/hydrochlorothiazide 37.5/25 mg p.o. twice a day PHYSICAL EXAMINATION: VITAL SIGNS: Temperature 98, pulse 64, respiratory rate 18, blood pressure 127/80; 96% saturation on room air. HEART: Regular rate and rhythm. LUNGS: Clear to auscultation. ABDOMEN: Soft, nontender, nondistended. EXTREMITIES: No pedal edema. MUSCULOSKELETAL: No abnormalities. SKIN: No rash. NEUROLOGICAL: No signs of meningeal irritation. No nystagmus. The patient is awake, alert, oriented to place, person and time. Normal speech, comprehension and repetition. Recent and distant memory is intact. Extraocular muscles are intact. No facial weakness. Tongue and uvula are midline. Visual garner are full to confrontation. 5/5 strength in all four extremities. Deep tendon reflexes are 1+ throughout. Normal sensation throughout. No dysmetria or ataxia. DIAGNOSTIC STUDIES: MRI, MRA brain and neck, CT scan of head, CTA of head and neck were unremarkable. CBC, metabolic profile and troponin were unremarkable. Creatinine was 1.7. ASSESSMENT: 1. Suspected transient ischemic attack. 2. Sleep apnea. 3. Hypertension and dyslipidemia. PLAN: 1. Aspirin 81 mg p.o. daily. 2. Await results of his echocardiogram. His telemetry monitoring does not show signs of atrial fibrillation. 3. Continue Lipitor 40 mg p.o. daily and keep blood pressure below 130/80. 4. Follow with our office in two weeks after hospital discharge.
--- NOTE | 2020-01-18 13:16 | ECHO ---
DATE OF PROCEDURE: 01/16/2020 Age: 64 Gender: Male Height: 180 cm Weight: 127 kg REFERRING PHYSICIAN: Grecia Chavarria MD. INDICATION: Transient ischemic attack (TIA). MEASUREMENTS: IVS 1.1 cm LV 5.5 cm LVPW 1.0 cm LA 4.1 cm Aorta 3.6 cm IVC 2.2 cm Left atrial volume index 37 Mitral E wave velocity 92, A wave 67 E prime septal 8.6, E prime lateral 9.8 FINDINGS: This study is of acceptable technical quality. There are good parasternal views, but fair at best apical views. The patient is in sinus rhythm with wide QRS complex. Left ventricle is of normal size and probably normal systolic function. Apical segments were not well visualized and I cannot completely rule out wall motion abnormality in that area. Right ventricle appears to be normal size and systolic function as well. Left atrium is moderately enlarged. The right atrium was poorly seen, but probably is of normal size. Aortic, mitral, tricuspid, and pulmonic valves all appears structurally intact. No pericardial effusion is present. Inferior vena cava is dilated, but it does collapse with inspiration indicative of likely mildly increased central venous pressure. Aortic root is normal. Aortic arch and abdominal aorta were not visualized. Doppler interrogation revealed trace aortic insufficiency, trace mitral and trace tricuspid insufficiency. Unfortunately, quality of CA jet was not sufficient to correctly estimate the pulmonary artery pressure. Mitral inflow pattern and tissue Doppler imaging of the mitral annulus revealed likely normal diastolic function, even though tissue Doppler velocities of the mitral annulus are mildly reduced. CONCLUSIONS: 1. Study is of acceptable technical quality. Underlying sinus rhythm with wide QRS complex. 2. Normal left ventricular (LV) size with probably normal LV systolic function (apical segments were not well visualized) and likely normal diastolic function. 3. Trace aortic, mitral, and tricuspid insufficiency. 4. Likely elevated central venous pressure, unable to estimate pulmonary artery pressure. COMMENTS: No obvious explanation for transient ischemic attack (TIA). MTDD
== END 2020-01-16 19:52 | disposition home or self-care (01) ==
LOC: M ED 07:20 → M ED INP 07:21 → ENRESERV 09:29 → M PCU 11:57
PROVIDERS: ADMIT General Practice; ATTEND General Practice
DX: G45.9 Transient cerebral ischemic attack, unspecified (principal); I10 Essential (primary) hypertension; E78.00 Pure hypercholesterolemia, unspecified; E66.9 Obesity, unspecified; G47.33 Obstructive sleep apnea (adult) (pediatric); R42 Dizziness and giddiness; J45.909 Unspecified asthma, uncomplicated; Z79.82 Long term (current) use of aspirin; Z79.899 Other long term (current) drug therapy
CPT/HCPCS: 70450; 70496; 70498; 70544; 70547; 70551; 71045; 80047; 82550; 82553; 84484; 85025; 85610; 85730; 86850; 86900; 86901; 90471; 90682; 93005; 93041; 93306; 94760; 99285; Q9967; U0002

== ENCOUNTER → 2020-04-18 | Outpatient (CLI) | payer MEDICAID, OTHER ==
[~2020-04-18] MED LIST changes: +ALBU8.5H PO; +ASPI-569 PO; +CLONI1TA PO; +CLOP75TA2 PO; +FLON1SPR NARES; +FLUT1BLS2 INH; +MAGN100T PO; +NIACCAP PO; +TRIA37.5 PO
--- NOTE | 2020-04-18 10:04 | REP ---
INDICATION: SOB COMPARISON: 01/16/2020. TECHNIQUE: PA/Lateral FINDINGS: Lungs: There are bilateral peripheral infiltrates, left greater than right. Heart: Normal in size. Mediastinum: Mediastinal silhouette unremarkable. There is mild elevation of the right hemidiaphragm unchanged. Pleural angles: There is chronic blunting of the right costophrenic angle likely representing pleural thickening.. Bones and soft tissues: Unremarkable. IMPRESSION: Bilateral peripheral infiltrates left greater than right. Given the history of recent COVID infection, the findings are likely to represent COVID pneumonia. <Electronically signed by Rizwan Hooks > 04/18/20 1001
== END ==
LOC: M WUC 09:04
PROVIDERS: ATTEND Physician Assistant Medical
DX: R06.02 Shortness of breath (principal); Z86.16 Personal history of COVID-19

== ENCOUNTER 2020-06-06 15:02 | Observation (INO) | payer MEDICAID ==
[~2020-06-06] VITALS: Ht 180.3 cm; Wt 135.6 kg
--- NOTE | 2020-06-06 16:16 | REP ---
INDICATION: DYSPNEA/COUGH. COMPARISON: 04/18/2020 TECHNIQUE: Portable FINDINGS: The technique utilized in obtaining the radiograph has magnified the cardiac silhouette and accentuated the interstitial markings. The superior mediastinal structures are midline. The cardiac silhouette is unremarkable in size, shape, and position. The diaphragmatic surfaces of the lungs are regular, and the costophrenic angles are clear. The pulmonary garner are clear. The imaged osseous structures are intact. IMPRESSION: The patchy opacities seen on the prior exam have cleared. There is no evidence of acute cardiopulmonary disease. <Electronically signed by Shubham Flanagan > 06/06/20 9782
[2020-06-06 16:29] LABS: BASO % 0.6 % (0.0-1.0); EOS # 0.1 10^3/uL (0.0-0.5); EOS % 2.2 % (0.0-3.0); HEMATOCRIT 39.4 % (42.0-52.0); HEMOGLOBIN 14.3 g/dl (13.5-17.5); LYMPH # 1.3 10^3/uL (1.5-5.0); LYMPH % 23.6 % (24.0-44.0); MEAN CORPUSCULAR HEMOGLOBIN 30.8 pg (27.0-33.0); MEAN CORPUSCULAR HGB CONC 36.3 g/dl (32.0-36.5); MEAN CORPUSCULAR VOLUME 84.7 fl (80.0-96.0); MONO % 17.7 % (2.0-8.0); NEUTROPHILS # 2.9 10^3/uL (1.5-8.5); NEUTROPHILS % 53.3 % (36.0-66.0); PLATELET COUNT, AUTOMATED 353 10^3/uL (150-450); RED BLOOD COUNT 4.65 10^6/uL (4.30-6.10); WHITE BLOOD COUNT 5.4 10^3/uL (4.0-10.0)
[2020-06-06] MEDS ORDERED: ALPRAZolam 0.25 MG TAB PO ONE (16:30)
[2020-06-06 17:01] LABS: ABG BASE EXCESS 4.1 (-2.0-2.0); ABG HCO3 23.3 MEQ/L (22.0-26.0); ABG O2 SATURATION 95.9 % (95.0-99.0); ABG PARTIAL PRESSURE CO2 22.2 mmHg (35.0-45.0); ABG PARTIAL PRESSURE O2 71.4 mmHg (75.0-100.0); ABG STANDARD HCO3 28.1 MEQ/L (22.0-26.0)
[2020-06-06 17:08] LABS: ABG pH (ARTERIAL) 7.639 UNITS (7.350-7.450)
[2020-06-06 17:13] LABS: ALBUMIN 3.5 GM/DL (3.2-5.2); ALT/SGPT 20 U/L (12-78); BILIRUBIN,DIRECT 0.6 MG/DL (0.0-0.2); BILIRUBIN,TOTAL 2.8 MG/DL (0.2-1.0); BLOOD UREA NITROGEN 23 MG/DL (7-18); CALCIUM LEVEL 9.1 MG/DL (8.8-10.2); CARBON DIOXIDE LEVEL 31 MEQ/L (21-32); CHLORIDE LEVEL 96 MEQ/L (98-107); CK-MB VALUE MASS < 1.0 NG/ML (<3.6); CPK CREATINE PHOSPHOKINASE 114 U/L (39-308); CREATININE FOR GFR 2.12 MG/DL (0.70-1.30); GLOMERULAR FILTRATION RATE 33.8 (>49); GLUCOSE, FASTING 98 MG/DL (70-100); MB/CK RELATIVE INDEX 0.88 (< OR =4); NT-PRO BNP 261 PG/ML (<125); POTASSIUM SERUM 2.9 MEQ/L (3.5-5.1); SODIUM LEVEL 136 MEQ/L (136-145); TOTAL PROTEIN 7.1 GM/DL (6.4-8.2); TROPONIN I < 0.02 NG/ML (< 0.10)
[2020-06-06] MEDS ORDERED: POTASSIUM CHLORIDE 10 MEQ SR TABLET PO ONE (17:20)
[2020-06-06] MEDS ORDERED: KCL 10MEQ/100ML SWI (KRUN) 10 MEQ in IV 1 EA IV ONE (17:20)
[2020-06-06] MEDS: COMBIVENT RESPIMAT 100-20MCG INHALER 4GM INH SCH ×3 (18:21→19:00)
[2020-06-06] MEDS ORDERED: ACETAMINOPHEN TAB 650MG DOSE (2X325MG) PO PRN (18:40)
[2020-06-06] MEDS ORDERED: MAALOX 30 ML SUSP *UDC PO PRN (18:40)
[2020-06-06] MEDS ORDERED: IPRATROPIUM 0.5MG/ALBUTEROL 2.5MG INH SOL UD 3ML (DUONEB) NEB PRN (18:40)
[2020-06-06] MEDS ORDERED: MOM 30ML SUSPENSION UDC PO PRN (18:40)
[2020-06-06] MEDS ORDERED: ASPI81TA26 PO (18:56)
[2020-06-06] MEDS ORDERED: ACET500T15 PO (18:56)
[2020-06-06] MEDS ORDERED: POTA20TA6 PO (18:56)
[2020-06-06] MEDS ORDERED: NABU-73 PO (18:56)
[2020-06-06] MEDS ORDERED: CLAR10CA3 PO (18:56)
[2020-06-06] MEDS ORDERED: ALBU83IN INH (18:57)
[2020-06-06] MEDS ORDERED: KCL 40MEQ in NS 1000ML 1,000 ML IV ONE ×2 (19:00→20:00)
[2020-06-06] MEDS ORDERED: NS 1,000 ML IV ONE (19:00)
--- NOTE | 2020-06-06 19:37 | HPEPDOC ---
[facility] Medical History & Physical Date of Admission Jun 06, 2020 Date of Service: Jun 06, 2020 Attending Physician: ELENI RAYA MD History and Physical CHIEF COMPLAINT: [64 y/o male with a c/c of increasing sob x3-4 days.] HISTORY OF PRESENT ILLNESS: [This is a 64 y/o white male with a pmh of asthma, htn, dyslipidemia, coco and tia who presents to the ED today 06/06 with a c/c of increasing SOB x3-4 days. Patient states that his symptoms started after he received the second dose of his covid vaccination on friday 06/02. Patient states that the day after his injection, he began to experience general malaise, headache and sob. Patient states that as of right now, his malaise and headaches has mostly resolved but he maintains poor oral intake and sob. Patient states that he has not had much to eat or drink the past 3 days. Patient states that his SOB his worst when he is in motion and dissipates after sitting and resting for a few minutes. Patient denies chest pains, fever, chills, n/v/d, c onstipation, cough, dizziness, syncope, sore throat, dysuria, acute back pain. Of note, patient found to be in respiratory alkalosis, mildly hypoxic, tachycardic and tachypneic. Patient overcame covid injection in february. Patient also found to be in maria de jesus with cr of 2.2 from baseline 0.7. Patient had potassium of 2.9.] PAST MEDICAL HISTORY: 1. [See HPI PAST SURGICAL HISTORY: 1. [Reviewed with pt - none SOCIAL HISTORY: Tobacco use:[Denies] ETOH: [Denies] Illicit drug use: [Denies] FAMILY HISTORY: Reviewed with pt - none ALLERGIES: Please see below. REVIEW OF SYSTEMS: CONSTITUTIONAL: [See HPI]. HEENT: [See HPI]. CARDIOVASCULAR: [See HPI]. RESPIRATORY: See HPI. GASTROINTESTINAL: [See HPI]. GENITOURINARY: [See HPI]. SKIN: [Denies rash]. MUSCULOSKELETAL: [See HPI]. NEUROLOGICAL: [Denies paresthesias]. ENDOCRINE: [Deneis hx of DM]. HEMATOLOGIC/LYMPHATIC: [Denies easy bruising]. HOME MEDICATIONS: Please see below. PHYSICAL EXAMINATION: VITAL SIGNS: Please see below. GENERAL APPEARANCE: [This is a 64 y/o male. He is resting in bed and is mildly sob during exam.]. HEENT: [No mass or lesion. EOMI. No scleral icterus. Nares patent. Oral mucosa dry without erythema]. CARDIOVASCULAR: [Tachy rate, regular rhythm. No murmurs, rubs or gallops]. LUNGS: [Wheezing appreciated at RLL. No accessory muscle use ]. ABDOMEN: [Soft, non-tender]. MUSCULOSKELETAL: [No joint deformity]. EXTREMITIES: [Questionable mild edema to b/l ankles. No overlying skin changes. Pulses intact. No c.lubbing,cyanosis.]. NEUROLOGICAL: [Sensation intact. Speech clear A+Ox3.]. PSYCHIATRIC: [Mood and affect appear appropriate.]. LABORATORY DATA: See below. IMAGING: [Chest x-ray: FINDINGS: The technique utilized in obtaining the radiograph has magnified the cardiac silhouette and accentuated the interstitial markings. The superior mediastinal structures are midline. The cardiac silhouette is unremarkable in size, shape, and position. The diaphragmatic surfaces of the lungs are regular, and the costophrenic angles are clear. The pulmonary garner are clear. The imaged osseous structures are intact. IMPRESSION: The patchy opacities seen on the prior exam have cleared. There is no evidence of acute cardiopulmonary disease.] MICROBIOLOGY: Please see below. ASSESSMENT: [This is a 64 y/o male with a pmh of asthma, htn, coco, dyslipidemia and tia who presents to the ed with 4 day hx of poor oral intake and increasing sob. On workup, patient found to be needing oxygen therapy due to his sob and in acute kidney injury.]. . PLAN: 1. [SOB - Most likely due to asthma exacerbation. Other ddx include pe, chf. Asthma potentially exacerbated by poor medication compliance due to his recent illness, viral syndrome or environmental change. - Will begin duonebs q4h on the floor, oxygen therapy titrated to 88-92% - continue at home inhalers, fluticasone, claritin - Patient had elevated d-dimer. Day team may consider cta to r/o pe once kidney function improves - Patient had slightly elevated BNP. Will repeat in the morning. can consider echo for evaluation of CHF - Will admit to med surg under obs on tele 2. MARIA DE JESUS - Patients cr acutely elevated to 2.2. No hx of kidney dz. Most likely etiology is pre-renal due to poor oral intake over several days. - Will begin IVF - Will check renal us, urine cr and na, ua - Will recheck kidney function in the morning 3. Hypokalemia - Pt given 40meq oral and 10meq in the ED. - Will add additional potassium to patient's maintenance fluids - Will recheck potassium in the morning - Patient on tele 4. COCO - CPAP 5. HTN - continue amlodipine, metoprolol, dyazine, clonidine 6. Hx TIA - continue plavix 7. Dyslipidemia - continue statin, niacin 8. GERD - continue omeprazole 9. BPH - continue flomax 10. DVT Prophylaxis - heparin, teds]. Vital Signs Vital Signs Date Time Temp Pulse Resp B/P (MAP) Pulse Ox O2 Delivery O2 Flow Rate FiO2 06/06/20 18:44 121 22 95 Nasal Cannula 2.0 06/06/20 18:31 128/73 (91) 06/06/20 15:04 98.1 Laboratory Data Labs 24H Laboratory Tests 2 06/06/20 16:15: D-Dimer, Quantitative 1425.65H 06/06/20 16:16: Immature Granulocyte % (Auto) 2.6, Neutrophils (%) (Auto) 53.3, Lymphocytes (%) (Auto) 23.6L, Monocytes (%) (Auto) 17.7H, Eosinophils (%) (Auto) 2.2, Basophils (%) (Auto) 0.6, Neutrophils # (Auto) 2.9, Lymphocytes # (Auto) 1.3L, Monocytes # (Auto) 1.0H, Eosinophils # (Auto) 0.1, Basophils # (Auto) 0.0, Nucleated Red Blood Cells % (auto) 0.0, Anion Gap 9, Glomerular Filtration Rate 33.8L, Calcium Level 9.1, Total Bilirubin 2.8H, Direct Bilirubin 0.6H, Aspartate Amino Transf (AST/SGOT) 17, Alanine Aminotransferase (ALT/SGPT) 20, Alkaline Phosphatase 77, Total Creatine Kinase 114, Creatine Kinase MB < 1.0, Creatine Kinase MB Relative Index 0.88, Troponin I < 0.02, ZK-Vaz-U-Type Natriuretic Peptide 261H, Total Protein 7.1, Albumin 3.5, Albumin/Globulin Ratio 1.0 06/06/20 16:39: Blood Gas Bicarbonate Standard 28.1H, Arterial Blood pH 7.639*H, Arterial Blood Partial Pressure CO2 22.2L, Arterial Blood Partial Pressure O2 71.4L, Arterial Blood Total CO2 24.0, Arterial Blood HCO3 23.3, Arterial Blood Base Excess 4.1H, Arterial Blood Oxygen Saturation 95.9 CBC/BMP Laboratory Tests 06/06/20 16:16 Microbiology Microbiology 06/06/20 Respiratory Virus Panel (PCR) ([facility]) - Final, Complete Home Medications Scheduled Acetaminophen (Acetaminophen) 500 Mg Tablet, 1,000 MG PO BID Amlodipine Besylate (Amlodipine Besylate) 5 Mg Tablet, 5 MG PO DAILY Aspirin (Aspirin EC) 81 Mg Tablet.dr, 81 MG PO DAILY Atorvastatin Calcium (Atorvastatin Calcium) 40 Mg Tablet, 40 MG PO DAILY Clonidine HCl (Clonidine HCl) 0.2 Mg Tablet, 0.2 MG PO QPM Fluticasone Propion/Salmeterol (Wixela 250-50 Inhub) 1 Each Blst.w.dev, 1 PUFF INH BID Fluticasone Propionate (Flonase Allergy Relief) 9.9 Ml [place].susp, 2 SPRAY NARES DAILY Loratadine (Claritin) 10 Mg Capsule, 10 MG PO DAILY Metoprolol Succinate (Metoprolol Succinate) 50 Mg Tab.er.24h, 50 MG PO DAILY Nabumetone (Nabumetone) 750 Mg Tablet, 750 MG PO QHS Niacin (Inositol Niacinate) (Niacin 500 mg Capsule) 500 Mg Capsule, 500 MG PO DAILY Omeprazole (Omeprazole) 40 Mg Capsule.dr, 40 MG PO DAILY Potassium Chloride (Potassium Chloride) 20 Meq Tab.er.prt, 20 MG PO Q2D Tamsulosin Hcl (Tamsulosin HCl) 0.4 Mg Capsule, 0.4 MG PO DAILY Triamterene/Hydrochlorothiazid (Triamterene-Hctz 37.5-25 mg Tb) 1 Each Tablet, 1 TAB PO BID Scheduled PRN Albuterol Sulf (Albuterol Sulfate) 2.5 Mg/3 Ml Vial.neb, 2.5 MG INH QID PRN for SHORTNESS OF BREATH Albuterol Sulfate (Albuterol Sulfate Hfa) 8.5 Gm Hfa.aer.ad, 2 PUFFS PO QID PRN for SHORTNESS OF BREATH Allergies Coded Allergies: No Known Allergies (Unverified , 06/04/18) A-FIB/CHADSVASC A-FIB History Current/History of A-Fib/PAF?: No Attending Note Attending Note time of service 820pm Mr. Malcolm is a 64 yr old M w a hx of HTN, asthma, hypercholesterolemia, COCO, vertigo, TIA who presented w c/o dyspnea, nausea, vomiting, fever chills and myalgias after receiving his second dose of moderna vaccine for COVID; the dyspnea was not typical of his asthma attacks and didnt improve w nebs; he will be admitted for evaluation of ADR to COVID vaccine, dyspnea, MARIA DE JESUS and weakness. rest per DOMINGUEZ Gatica's H&P STARR GATICA Jun 06, 2020 19:37 ELENI RAYA MD Jun 07, 2020 02:23
[2020-06-06] MEDS ORDERED: ALBUTEROL 90 MCG/ACT 8GM HFA INHALER INH PRN (19:40)
[2020-06-06] MEDS ORDERED: ALBUTEROL SULFATE 2.5 MG/0.5 ML INH NEB SOLN INH PRN (19:40)
--- NOTE | 2020-06-06 20:02 | ECGEPIP ---
[facility] - ED Test Date: 2020-06-06 Pat Name: LIZETTE IRENE Department: Room: - Gender: Male Reception Clerk: : [id number] Requested By: VAN Marques Order Number: [id number] Reading MD: Lili Chiang Measurements Intervals [place] Rate: 114 P: 12 GA: 152 QRS: -53 QRSD: 86 T: 107 QT: 342 QTc: 471 Interpretive Statements Sinus tachycardia Left anterior fascicular block Septal infarct , age undetermined Cannot rule out Inferior infarct (masked by fascicular block?) , age undetermined increased rate 01/16/20 Electronically Signed on 06-06-2020 20:02:48 EDT by Lili Chiang
[2020-06-06] MEDS ORDERED: HEPARIN SOD (PORCINE) 5000UNITS/ML 1ML VIAL/SYRINGE SC SCH (21:00)
[2020-06-06 22:12] VITALS: BP 135/94
[2020-06-06] MEDS: DOCUSATE SODIUM 100MG CAPSULE PO SCH (23:01)
[2020-06-06] MEDS: cloNIDine 0.2 MG TAB PO SCH (23:02)
[2020-06-06] MEDS: DYAZIDE 37.5/25 CAP (TRIAM/HCTZ) PO SCH (23:31)
[2020-06-06 23:44] LABS: APPEARANCE, URINE CLEAR (CLEAR); BACTERIA, URINE AUTO NEGATIVE (NEGATIVE); BILIRUBIN, URINE AUTO NEGATIVE (NEGATIVE); BLOOD, URINE BLOOD 1+ (NEGATIVE); COLOR, URINE YELLOW (YELLOW); GLUCOSE, URINE (UA) AUTO NEGATIVE (NEGATIVE); KETONE, URINE AUTO NEGATIVE (NEGATIVE); LEUKOCYTE ESTERASE, URINE AUTO NEGATIVE (NEGATIVE); MUCUS, URINE SMALL (NEGATIVE); NITRITE, URINE AUTO NEGATIVE (NEGATIVE); PROTEIN, URINE AUTO NEGATIVE (NEGATIVE); RBC, URINE AUTO 4 /HPF (0-3); SPECIFIC GRAVITY URINE AUTO 1.009 (1.002-1.035); SQUAMOUS EPITHELIAL CELL UR AU 0 /HPF (0-6); UROBILINOGEN, URINE AUTO 0.2 mg/dL (0.0-2.0); WBC, URINE AUTO 1 /HPF (0-3)
[2020-06-06 23:54] LABS: CREATININE,RANDOM URINE 99.5 MG/DL
[2020-06-07] MEDS ORDERED: HEPARIN SOD (PORCINE) 5000UNITS/ML 1ML VIAL/SYRINGE IV PRN (02:30)
[2020-06-07] MEDS: HEPARIN DRIP 25,000 UNITS in IV 1 EA IV SCH ×2 (03:58→18:01)
[2020-06-07 06:00] VITALS: BP 125/76
[2020-06-07] MEDS: ADVAIR HFA 115/21MCG INHALER INH SCH ×2 (07:23→19:25)
[2020-06-07 07:30] LABS: HEMATOCRIT 36.4 % (42.0-52.0); HEMOGLOBIN 12.8 g/dl (13.5-17.5); MEAN CORPUSCULAR HEMOGLOBIN 30.6 pg (27.0-33.0); MEAN CORPUSCULAR HGB CONC 35.2 g/dl (32.0-36.5); MEAN CORPUSCULAR VOLUME 87.1 fl (80.0-96.0); PLATELET COUNT, AUTOMATED 342 10^3/uL (150-450); RED BLOOD COUNT 4.18 10^6/uL (4.30-6.10); WHITE BLOOD COUNT 4.4 10^3/uL (4.0-10.0)
[2020-06-07 07:54] LABS: CALCIUM LEVEL 8.3 MG/DL (8.8-10.2); CREATININE FOR GFR 2.11 MG/DL (0.70-1.30); GLOMERULAR FILTRATION RATE 33.9 (>49); MAGNESIUM LEVEL 1.8 MG/DL (1.8-2.4); POTASSIUM SERUM 2.9 MEQ/L (3.5-5.1)
--- NOTE | 2020-06-07 08:30 | REP ---
INDICATION: sobia. COMPARISON: None. TECHNIQUE: Urinary tract sonography. FINDINGS: Scanning at the level of the urinary bladder shows no abnormality. Renal cortical echogenicity pattern is felt to be slightly increased which may reflect chronic medical renal disease. There is no evidence of hydronephrosis. No cyst mass or calculus is seen in either kidney.. The right kidney measures 10.0 x 4.3 x 5.3 cm. Left renal dimensions are 11.3 x 4.7 x 5.2 cm. IMPRESSION: Slightly increased renal cortical echogenicity. Otherwise negative urinary tract sonography. No evidence of hydronephrosis.. <Electronically signed by Cristopher Avelar > 06/07/20 1149
[2020-06-07] MEDS: DYAZIDE 37.5/25 CAP (TRIAM/HCTZ) PO SCH (09:29)
[2020-06-07] MEDS: OMEPRAZOLE 20 MG CAP PO SCH (09:29)
[2020-06-07] MEDS: ATORVASTATIN 20 MG TAB PO SCH (09:30)
[2020-06-07] MEDS: ASPIRIN 81MG ENTERIC TABLET PO SCH (09:30)
[2020-06-07] MEDS: DOCUSATE SODIUM 100MG CAPSULE PO SCH ×2 (09:30→20:01)
[2020-06-07] MEDS: TAMSULOSIN 0.4 MG CAP PO SCH (09:30)
[2020-06-07] MEDS: LORATADINE 10 MG TAB PO SCH (09:30)
[2020-06-07] MEDS: METOPROLOL SUCC (TopROL XL) 50MG **XL** TAB PO SCH (09:31)
[2020-06-07] MEDS: amLODIPine 5 MG TAB PO SCH (09:31)
[2020-06-07] MEDS ORDERED: POTASSIUM CHLORIDE 10 MEQ SR TABLET PO ONE ×3 (10:00→16:00)
[2020-06-07 10:09] LABS: HEMOGLOBIN A1c 5.4 %
[2020-06-07] MEDS ORDERED: NS 1,000 ML IV ONE (10:30)
[2020-06-07] MEDS: KCL 20MEQ IN 0.45NS 1000ML 1,000 ML IV SCH ×2 (11:39→20:01)
[2020-06-07] MEDS: NIACIN 250MG EXTENDED RELEASE CAPSULE PO SCH (12:54)
[2020-06-07] MEDS: FLUTICASONE PROP 0.05% NASAL SPRAY 16 GM (FLONASE) NARES SCH (13:46)
[2020-06-07 14:00] VITALS: BP 128/71
[2020-06-07 15:23] LABS: CALCIUM LEVEL 8.3 MG/DL (8.8-10.2); CREATININE FOR GFR 1.87 MG/DL (0.70-1.30); POTASSIUM SERUM 2.7 MEQ/L (3.5-5.1)
[2020-06-07] MEDS ORDERED: MAG SULF 1GM/100ML (MAG RUN) 1 GM in IV 1 EA IV ONE (16:00)
--- NOTE | 2020-06-07 16:14 | IPNPDOC ---
Date Seen The patient was seen on 06/07/20. Progress Note SUBJECTIVE: patient was seen and examined at bedside. doing well, no acute events overnight. States no chest pain, shortness of breath, palpitations, fevers or chills. OBJECTIVE PHYSICAL EXAMINATION: VITAL SIGNS: please see below General: NAD, comfortable HEENT: PERRLA, EOMI, sclerae clear Neck: supple, normal ROM, no JVD Respiratory: lungs CTAB, no wheeze, no rales, no crackles CVS: RRR, normal S1, S2, no murmurs Abdo: soft, no masses, no hepatosplenomegaly, BS+, no rebound tenderness Extremities: no edema, pulses 2+ MSK: no joint deformities, normal ROM Neuro: no focal neuro deficits, moving all 4 extremities, CN2-12 intact. Strength 5/5 in all 4 extremities. No nystagmus. Psych: calm, cooperative, AAO x 3 LABORATORY DATA, IMAGING STUDIES, MICROBIOLOGY: Please see below. DVT prophylaxis ordered?: on heparin ggt ASSESSMENT AND PLAN: Mr. Malcolm is a 64 yr old M w a hx of HTN, asthma, hypercholesterolemia, COCO, vertigo, TIA & class 3 obesity who presented w c/o dyspnea, nausea, vomiting, fever chills and myalgias after receiving his second dose of moderna vaccine for COVID; the dyspnea was not typical of his asthma attacks and didnt improve w nebs; he will be admitted for evaluation of ADR to COVID vaccine, dyspnea, MARIA DE JESUS, hypokalemia and weakness; because the d-dimer was elevated we will order BLE US & start him on empiric heparin drip; if his renal function doesnt improve he may need a VQ scan. Bc his BMP is > 30 we will also check his A1C to screen for DM. PROBLEMS: 1. [SOB - Most likely due to asthma exacerbation. Other ddx include pe, chf. Asthma potentially exacerbated by poor medication compliance due to his recent illness, viral syndrome or environmental change. - Will begin duonebs q4h on the floor, oxygen therapy titrated to 88-92% - continue at home inhalers, fluticasone, claritin - Patient had elevated d-dimer. - BNP likely elevated in setting of MARIA DE JESUS - will c/w heparin ggt. Plan for CT chest to r/o PE in am. 2. MARIA DE JESUS - Patients cr acutely elevated to 2.2. No hx of kidney dz. Most likely etiology is pre-renal due to poor oral intake over several days. - renal US wnl - c/w 1/2NS with 20 meq KCK. 3. Hypokalemia - stop triamterene/HCTZ - start 1/2NS with 20 meq kcl - 40 meq KCL PO BID - K remains low, will continue with IVF, PO replacement - maintaine Mg > 2 4. COCO - CPAP 5. HTN - continue amlodipine, metoprolol, clonidine - stop triamterene/hctz 6. Hx TIA - continue plavix 7. Dyslipidemia - continue statin, niacin 8. GERD - continue omeprazole 9. BPH - continue flomax 10. DVT Prophylaxis - heparin, teds VS, I&O, 24H, Fishbone Vital Signs/I&O Vital Signs Date Time Temp Pulse Resp B/P (MAP) Pulse Ox O2 Delivery O2 Flow Rate FiO2 06/07/20 14:00 97.5 94 18 128/71 (90) 92 Nasal Cannula 2.0 I&O- Last 24 Hours up to 6 AM 06/07/20 06:00 Intake Total 2425 ml Output Total 475 ml Balance 1950 ml Laboratory Data 24H LABS Laboratory Tests 2 06/06/20 16:15: D-Dimer, Quantitative 1425.65H, Lactic Acid Level 1.5 06/06/20 16:16: Immature Granulocyte % (Auto) 2.6, Neutrophils (%) (Auto) 53.3, Lymphocytes (%) (Auto) 23.6L, Monocytes (%) (Auto) 17.7H, Eosinophils (%) (Auto) 2.2, Basophils (%) (Auto) 0.6, Neutrophils # (Auto) 2.9, Lymphocytes # (Auto) 1.3L, Monocytes # (Auto) 1.0H, Eosinophils # (Auto) 0.1, Basophils # (Auto) 0.0, Nucleated Red Blood Cells % (auto) 0.0, Anion Gap 9, Glomerular Filtration Rate 33.8L, Calcium Level 9.1, Total Bilirubin 2.8H, Direct Bilirubin 0.6H, Aspartate Amino Transf (AST/SGOT) 17, Alanine Aminotransferase (ALT/SGPT) 20, Alkaline Phosphatase 77, Total Creatine Kinase 114, Creatine Kinase MB < 1.0, Creatine Kinase MB Relative Index 0.88, Troponin I < 0.02, BQ-Ylq-Q-Type Natriuretic Peptide 261H, Total Protein 7.1, Albumin 3.5, Albumin/Globulin Ratio 1.0 06/06/20 16:39: Blood Gas Bicarbonate Standard 28.1H, Arterial Blood pH 7.639*H, Arterial Blood Partial Pressure CO2 22.2L, Arterial Blood Partial Pressure O2 71.4L, Arterial Blood Total CO2 24.0, Arterial Blood HCO3 23.3, Arterial Blood Base Excess 4.1H, Arterial Blood Oxygen Saturation 95.9 06/06/20 23:09: Urine Color YELLOW, Urine Appearance CLEAR, Urine pH 5.0, Urine Specific [place] 1.009, Urine Protein NEGATIVE, Urine Glucose (Auto)(UA) NEGATIVE, Urine Ketones (Auto) NEGATIVE, Urine Blood 1+H, Urine Nitrite NEGATIVE, Urine Bilirubin NEGATIVE, Urine Urobilinogen 0.2, Urine Leukocyte Esterase (Auto) NEGATIVE, Urine WBC (Auto) 1, Urine RBC (Auto) 4H, Urine Hyaline Casts (Auto) 7, Urine Bacteria (Auto) NEGATIVE, Urine Squamous Epithelial Cells 0, Urine Mucus (Auto) SMALL, Urine Sperm (Auto) , Urine Random Creatinine 99.5, Urine Random Sodium 82 06/07/20 03:29: Activated Partial Thromboplast Time 31.8 06/07/20 07:06: Nucleated Red Blood Cells % (auto) 0.0, D-Dimer, Quantitative 1130.31H, Anion Gap 7L, Glomerular Filtration Rate 33.9L, Estimated Mean Plasma Glucose 108, Hemoglobin A1c 5.4, Calcium Level 8.3L, Magnesium Level 1.8, GH-Dvp-V-Type Natriuretic Peptide 142H 06/07/20 10:12: Activated Partial Thromboplast Time 39.8H 06/07/20 14:42: Anion Gap 7L, Glomerular Filtration Rate 39.0L, Calcium Level 8.3L CBC/BMP Laboratory Tests 06/06/20 16:16 06/07/20 07:06 06/07/20 14:42 Microbiology Microbiology 06/06/20 Respiratory Virus Panel (PCR) ([facility]) - Final, Complete ESTEPHANIE ESCALONA MD Jun 07, 2020 16:14
--- NOTE | 2020-06-07 17:22 | REP ---
INDICATION: elevated bilirubin. COMPARISON: None. TECHNIQUE: Right upper quadrant sonography. FINDINGS: Scanning through the right upper quadrant the abdomen demonstrates a small partially contracted appearing gallbladder with shadowing calculi suspected in its neck. The patient reports having eaten for 3 hours prior. Increased echogenicity is seen in the liver consistent with fatty infiltration. No focal liver lesion is seen. The pancreas is obscured by abdominal gas. There is no evidence of ascites or right renal abnormality. The right kidney measures 10.8 x 5.1 x 5.6 cm.. Common bile duct is normal measuring 0.4 cm in greatest diameter. IMPRESSION: There is evidence of fatty infiltration of the liver. The gallbladder is somewhat small partially contracted. Shadowing calculi are noted in the region of the neck of the gallbladder.. No evidence of biliary ductal dilation. <Electronically signed by Cristopher Avelar > 06/07/20 [id number]
[2020-06-07] MEDS: cloNIDine 0.2 MG TAB PO SCH (20:02)
[2020-06-07 22:00] VITALS: BP 128/93
[2020-06-07 22:11] LABS: CALCIUM LEVEL 7.8 MG/DL (8.8-10.2); CREATININE FOR GFR 1.69 MG/DL (0.70-1.30); GLOMERULAR FILTRATION RATE 43.8 (>49); POTASSIUM SERUM 3.3 MEQ/L (3.5-5.1)
[2020-06-08] MEDS: KCL 20MEQ IN 0.45NS 1000ML 1,000 ML IV SCH ×2 (04:02→12:35)
[2020-06-08 06:00] VITALS: BP 113/71
[2020-06-08 06:22] LABS: HEMATOCRIT 35.7 % (42.0-52.0); HEMOGLOBIN 12.4 g/dl (13.5-17.5); MEAN CORPUSCULAR HEMOGLOBIN 30.1 pg (27.0-33.0); MEAN CORPUSCULAR HGB CONC 34.7 g/dl (32.0-36.5); MEAN CORPUSCULAR VOLUME 86.7 fl (80.0-96.0); PLATELET COUNT, AUTOMATED 360 10^3/uL (150-450); RED BLOOD COUNT 4.12 10^6/uL (4.30-6.10); WHITE BLOOD COUNT 4.3 10^3/uL (4.0-10.0)
[2020-06-08 06:51] LABS: ALBUMIN 3.1 GM/DL (3.2-5.2); BILIRUBIN,TOTAL 1.9 MG/DL (0.2-1.0); CALCIUM LEVEL 8.3 MG/DL (8.8-10.2); CREATININE FOR GFR 1.48 MG/DL (0.70-1.30); GLOMERULAR FILTRATION RATE 51.1 (>49); POTASSIUM SERUM 3.6 MEQ/L (3.5-5.1); TOTAL PROTEIN 6.4 GM/DL (6.4-8.2)
[2020-06-08] MEDS: ADVAIR HFA 115/21MCG INHALER INH SCH (08:07)
[2020-06-08] MEDS: ASPIRIN 81MG ENTERIC TABLET PO SCH (08:52)
[2020-06-08] MEDS: OMEPRAZOLE 20 MG CAP PO SCH (08:52)
[2020-06-08] MEDS: NIACIN 250MG EXTENDED RELEASE CAPSULE PO SCH (08:52)
[2020-06-08] MEDS: ATORVASTATIN 20 MG TAB PO SCH (08:52)
[2020-06-08] MEDS: LORATADINE 10 MG TAB PO SCH (08:53)
[2020-06-08] MEDS: FLUTICASONE PROP 0.05% NASAL SPRAY 16 GM (FLONASE) NARES SCH (08:53)
[2020-06-08] MEDS: DOCUSATE SODIUM 100MG CAPSULE PO SCH (08:54)
[2020-06-08 08:56] VITALS: BP 132/93
[2020-06-08] MEDS: amLODIPine 5 MG TAB PO SCH (08:56)
[2020-06-08] MEDS: METOPROLOL SUCC (TopROL XL) 50MG **XL** TAB PO SCH (08:57)
[2020-06-08] MEDS ORDERED: POTASSIUM CHLORIDE 10 MEQ SR TABLET PO SCH (09:00)
[2020-06-08] MEDS: TAMSULOSIN 0.4 MG CAP PO SCH (09:05)
[2020-06-08] MEDS ORDERED: ISOVUE-370 76% 100ML VIAL As Ordered ONE (10:28)
--- NOTE | 2020-06-08 10:50 | DS.PDOC ---
Discharge Summary General Date of Admission Jun 06, 2020 at 15:03 Date of Discharge 06/08/20 Primary Care Physician: Pepe Watkins PAC Discharge Summary PROCEDURES PERFORMED DURING STAY: [None]. ADMITTING DIAGNOSES: dyspnea acute kidney injury hypokalemia hx of COCO hx of HTN hx TIA Dyslipidemia GERD BPH DISCHARGE DIAGNOSES: dyspnea acute kidney injury hypokalemia hx of COCO hx of HTN hx TIA Dyslipidemia GERD BPH COMPLICATIONS/CHIEF COMPLAINT: Acute Kidney Injury,Sob. HISTORY OF PRESENT ILLNESS: This is a 64 y/o white male with a pmh of asthma, htn, dyslipidemia, coco and tia who presents to the ED today 06/06 with a c/c of increasing SOB x3-4 days. Patient states that his symptoms started after he received the second dose of his covid vaccination on friday 06/02. Patient states that the day after his injection, he began to experience general malaise, headache and sob. Patient states that as of right now, his malaise and headaches has mostly resolved but he maintains poor oral intake and sob. Patient states that he has not had much to eat or drink the past 3 days. Patient states that his SOB his worst when he is in motion and dissipates after sitting and resting for a few minutes. Patient denies chest pains, fever, chills, n/v/d, constipation, cough, dizziness, syncope, sore throat, dysuria, acute back pain. Of note, patient found to be in respiratory alkalosis, mildly hypoxic, tachycardic and tachypneic. Patient overcame covid injection in february. Patient also found to be in maria de jesus with cr of 2.2 from baseline 0.7. Patient had potassium of 2.9 HOSPITAL COURSE: 1. [SOB - Most likely due to asthma exacerbation. Other ddx include pe, chf. Asthma potentially exacerbated by poor medication compliance due to his recent illness, viral syndrome or environmental change. - Will begin duonebs q4h on the floor, oxygen therapy titrated to 88-92% - continue at home inhalers, fluticasone, claritin - Patient had elevated d-dimer. - BNP likely elevated in setting of MARIA DE JESUS - stopped heprin - CTA pe to r/o PE - no evidence of PE - wheezing resolved 2. MARIA DE JESUS - Patients cr acutely elevated to 2.2. No hx of kidney dz. Most likely etiology is pre-renal due to poor oral intake over several days. - renal US wnl - s/p 1/2NS with 20 meq KCK. - Repeat Cr 1.48, GFR 51 - repeat BMP in 3-5 days with PCP, patient instructions provided. 3. Hypokalemia - stop triamterene/HCTZ - replaced with PO KCL as well as 1/2NS with 20 meq KCL - repeat K+ 3.6. - maintain Mg > 2 4. Elevated bilirubin - downtrending - no RUQ pain, n/v/d - liver US showing fatty liver, no distension of CBD 5. COCO - CPAP 6. HTN - continue amlodipine, metoprolol, clonidine - stop triamterene/hctz due to hypokalemia - blood pressure appropriate, will not add replacement diuretic 7. Hx TIA - continue plavix 8. Dyslipidemia - continue statin, niacin 9. GERD - continue omeprazole 10. BPH - continue flomax DISCHARGE MEDICATIONS: Please see below. ALLERGIES: Please see below. PHYSICAL EXAMINATION ON DISCHARGE: VITAL SIGNS: please see below General: NAD, comfortable HEENT: PERRLA, EOMI, sclerae clear Neck: supple, normal ROM, no JVD Respiratory: lungs CTAB, no wheeze, no rales, no crackles CVS: RRR, normal S1, S2, no murmurs Abdo: soft, no masses, no hepatosplenomegaly, BS+, no rebound tenderness Extremities: no edema, pulses 2+ MSK: no joint deformities, normal ROM Neuro: no focal neuro deficits, moving all 4 extremities, CN2-12 intact. Strength 5/5 in all 4 extremities. No nystagmus. Psych: calm, cooperative, AAO x 3 LABORATORY DATA: Please see below. IMAGING: CT angiogram chest (06/08/20): No CT evidence of pulmonary embolus. Cholelithiasis. 5 mm noncalcified pulmo nary nodule in the right middle lobe. If the patient is considered at risk for pulmonary malignancy, a follow-up chest CT study can be performed in 6-9 months if at low risk, follow-up chest CT suggested in 1 year. Renal US (06/07/20): IMPRESSION: Slightly increased renal cortical echogenicity. Otherwise negative urinary tract sonography. No evidence of hydronephrosis Chest x-ray: FINDINGS: The technique utilized in obtaining the radiograph has magnified the cardiac silhouette and accentuated the interstitial markings. The superior mediastinal structures are midline. The cardiac silhouette is unremarkable in size, shape, and position. The diaphragmatic surfaces of the lungs are regular, and the costophrenic angles are clear. The pulmonary garner are clear. The imaged osseous structures are intact. IMPRESSION: The patchy opacities seen on the prior exam have cleared. There is no evidence of acute cardiopulmonary disease. PROGNOSIS: good ACTIVITY: [As tolerated] DIET: 2g sodium DISCHARGE PLAN: DC home with PCP follow up/ DISPOSITION: Home DISCHARGE INSTRUCTIONS: . Please follow-up with your primary care doctor within 3-5 days . Please taking medications as prescribed. . If you develop bleeding, chest pain, shortness of breath, seizures, nausea, fevers, or otherwise worsening of your symptoms, please call 911 or return to the nearest emergency room ITEMS TO FOLLOW UP OUTPATIENT: - repeat BMP to assess K+ level - R middle lung nodule, repeat CT 6-9 mo. DISCHARGE CONDITION: Stable TIME SPENT ON DISCHARGE: 35 minutes Vital Signs/I&Os Vital Signs Date Time Temp Pulse Resp B/P (MAP) Pulse Ox O2 Delivery O2 Flow Rate FiO2 06/08/20 08:56 83 132/93 06/08/20 06:00 96.8 20 97 Nasal Cannula 2.0 I&O- Last 24 Hours up to 6 AM 06/08/20 05:59 Intake Total 5484 ml Output Total 3500 ml Balance 1984 ml Laboratory Data Labs 24H Laboratory Tests 2 06/07/20 14:42: Anion Gap 7L, Glomerular Filtration Rate 39.0L, Calcium Level 8.3L 06/07/20 17:35: Activated Partial Thromboplast Time 192.2*H 06/07/20 21:26: Anion Gap 7L, Glomerular Filtration Rate 43.8L, Calcium Level 7.8L 06/08/20 02:16: Activated Partial Thromboplast Time 133.7*H 06/08/20 05:33: Nucleated Red Blood Cells % (auto) 0.0, Anion Gap 7L, Glomerular Filtration Rate 51.1, Calcium Level 8.3L, Magnesium Level 2.0, Total Bilirubin 1.9H, Aspartate Amino Transf (AST/SGOT) 19, Alanine Aminotransferase (ALT/SGPT) 19, Alkaline Phosphatase 80, Total Protein 6.4, Albumin 3.1L, Albumin/Globulin Ratio 0.9 06/08/20 10:19: CBC/BMP Laboratory Tests 06/07/20 14:42 06/07/20 21:26 06/08/20 05:33 Microbiology Microbiology 06/08/20 Stool Occult Blood ([facility]) - Final, Complete 06/06/20 Respiratory Virus Panel (PCR) ([facility]) - Final, Complete Discharge Medications Scheduled Acetaminophen (Acetaminophen) 500 Mg Tablet, 1,000 MG PO BID, (Reported) Amlodipine Besylate (Amlodipine Besylate) 5 Mg Tablet, 5 MG PO DAILY Aspirin (Aspirin EC) 81 Mg Tablet.dr, 81 MG PO DAILY, (Reported) Atorvastatin Calcium (Atorvastatin Calcium) 40 Mg Tablet, 40 MG PO DAILY, (Reported) Clonidine HCl (Clonidine HCl) 0.2 Mg Tablet, 0.2 MG PO QPM, (Reported) Fluticasone Propion/Salmeterol (Wixela 250-50 Inhub) 1 Each Blst.w.dev, 1 PUFF INH BID Fluticasone Propionate (Flonase Allergy Relief) 9.9 Ml [place].susp, 2 SPRAY NARES DAILY, (Reported) Loratadine (Claritin) 10 Mg Capsule, 10 MG PO DAILY, (Reported) Metoprolol Succinate (Metoprolol Succinate) 50 Mg Tab.er.24h, 50 MG PO DAILY Niacin (Inositol Niacinate) (Niacin 500 mg Capsule) 500 Mg Capsule, 500 MG PO DAILY, (Reported) Omeprazole (Omeprazole) 40 Mg Capsule.dr, 40 MG PO DAILY Potassium Chloride (Potassium Chloride) 20 Meq Tab.er.prt, 1 TAB PO DAILY Tamsulosin Hcl (Tamsulosin HCl) 0.4 Mg Capsule, 0.4 MG PO DAILY, (Reported) Scheduled PRN Albuterol Sulf (Albuterol Sulfate) 2.5 Mg/3 Ml Vial.neb, 2.5 MG INH QID PRN for SHORTNESS OF BREATH, (Reported) Albuterol Sulfate (Albuterol Sulfate Hfa) 8.5 Gm Hfa.aer.ad, 2 PUFFS PO QID PRN for SHORTNESS OF BREATH Allergies Coded Allergies: No Known Allergies (Unverified , 06/04/18) ESTEPHANIE ESCALONA MD Jun 08, 2020 10:50
--- NOTE | 2020-06-08 11:12 | REP ---
INDICATION: r/o PE. COMPARISON: None. TECHNIQUE: Contrast dose: 75 ML of Isovue [address] technique: Helical scanning is acquired and overlapping 1.5 mm and contiguous 3 mm axial images are reformatted. In addition, maximum intensity projection and multiplanar re-formation images are generated in sagittal and coronal imaging projections. FINDINGS: There is good opacification in the pulmonary arterial tree. There is no evidence of vessel cut off or filling defect to suggest pulmonary embolus. Homogeneous opacity is seen in the thoracic aorta. There is no evidence of aneurysm or dissection. Lung window settings demonstrate a noncalcified pulmonary nodule in the right middle lobe is seen on page 36 of 115 in series 402 of today's study. This measures 5 mm in diameter. No other pulmonary nodule is seen. No infiltrate is noted. There is no evidence of pleural or pericardial effusion. No hilar or mediastinal mass or adenopathy is observed. In the upper abdomen, normal adrenal glands are seen. There are slightly opaque gallstones near the neck of the gallbladder. An accessory splenule is noted. The visualized upper abdominal structures are otherwise unremarkable. IMPRESSION: No CT evidence of pulmonary embolus. Cholelithiasis. 5 mm noncalcified pulmonary nodule in the right middle lobe. If the patient is considered at risk for pulmonary malignancy, a follow-up chest CT study can be performed in 6-9 months if at low risk, follow-up chest CT suggested in 1 year. <Electronically signed by Cristopher Avelar > 06/08/20 [id number]
[2020-06-08] MEDS ORDERED: POTA20TA6 PO (11:36)
[2020-06-08] MEDS ORDERED: OMEP-221 PO (11:39)
[2020-06-08] MEDS ORDERED: FLUT1BLS2 INH (11:39)
[2020-06-08] MEDS ORDERED: AMLO1TAB24 PO (11:39)
[2020-06-08] MEDS ORDERED: ALBU8.5H PO (11:39)
[2020-06-08] MEDS ORDERED: METO1TAB7 PO (11:39)
== END 2020-06-08 13:54 | disposition home or self-care (01) ==
LOC: M ED 15:02 → M ED INP 15:03 → ENRESERV 20:33 → M MSPAV 22:11
PROVIDERS: ADMIT Internal Medicine; ATTEND Family Medicine
DX: R06.00 Dyspnea, unspecified (principal); N17.9 Acute kidney failure, unspecified; E87.6 Hypokalemia; G47.33 Obstructive sleep apnea (adult) (pediatric); I10 Essential (primary) hypertension; R79.1 Abnormal coagulation profile; R91.8 Other nonspecific abnormal finding of lung field; R11.2 Nausea with vomiting, unspecified; R00.0 Tachycardia, unspecified; E78.5 Hyperlipidemia, unspecified; K21.9 Gastro-esophageal reflux disease without esophagitis; N40.0 Benign prostatic hyperplasia without lower urinary tract symptoms; J45.909 Unspecified asthma, uncomplicated; Z86.73 Personal history of transient ischemic attack (TIA), and cerebral infarction without residual deficits; E80.7 Disorder of bilirubin metabolism, unspecified; R63.0 Anorexia; K76.0 Fatty (change of) liver, not elsewhere classified; Z79.899 Other long term (current) drug therapy; Z79.82 Long term (current) use of aspirin
CPT/HCPCS: 36415; 36600; 71045; 71275; 76705; 76775; 80048; 80053; 80076; 81001; 82270; 82550; 82553; 82570; 82803; 83036; 83605; 83735; 83880; 84300; 85025; 85027; 85379; 85730; 87798; 93005; 93041; 93970; 94664; 96361; 96365; 96366; 96372; 96376; 99285; J1644; J3475; Q9967

== ENCOUNTER → 2020-09-09 | Outpatient (CLI) | payer MEDICAID, OTHER ==
[~2020-09-09] MED LIST changes: +ACET500T15 PO; +ALBU83IN INH; +ASPI81TA26 PO; +CLAR10CA3 PO; +NABU-73 PO; +POTA20TA6 PO
--- NOTE | 2020-09-10 18:41 | SLEEPCENT ---
DATE: 09/09/2020 ORDERED BY: MORIAH Villa Nocturnal polysomnography was performed for the titration of pressure therapy in this patient with obstructive sleep apnea. For testing, a ResMed Airfit F20 full face mask of medium size was used, 6 cm of water pressure were applied to the circuit, and the lights were extinguished. Seven hours and 54 minutes of data were reviewed. There were 187.5 minutes of sleep identified. Sleep latency was prolonged at 60.5 minutes and his REM latency more so at 232.5 minutes. Sleep architecture showed poor progression early in the study. Later in the test the patient did experience a REM cycle. Overall sleep efficiency was only 39.9% due to wake after sleep onset. The electrocardiogram showed a sinus rhythm with an average heart rate of 75 beats per minute. EEG showed reasonably normal waveforms for wake and sleep. Respiratory events were best palliated with CPAP at a pressure of 13. There was some limb activity. Two trains of 30 events were appreciated. Limb movement arousal index was only 3.5. IMPRESSION: Obstructive sleep apnea syndrome (G47.33). RECOMMENDATION: Nightly use of pressure therapy 13 cm of water. cc: JUANPABLO POZO, PAC
== END ==
LOC: M SLEEP 20:00
PROVIDERS: ATTEND Nurse Practitioner Family
DX: G47.33 Obstructive sleep apnea (adult) (pediatric) (principal)

== ENCOUNTER → 2020-09-11 | Outpatient (REF) | payer OTHER | LOC: M LAB REF 16:54 | PROVIDERS: ATTEND Physician Assistant Medical | DX: R06.00 Dyspnea, unspecified (principal) ==

== ENCOUNTER → 2020-10-09 | Outpatient (CLI) | payer OTHER ==
[2020-10-09 13:26] LABS: HEMATOCRIT 43.1 % (42.0-52.0); HEMOGLOBIN 14.7 g/dl (13.5-17.5); MEAN CORPUSCULAR HEMOGLOBIN 30.1 pg (27.0-33.0); MEAN CORPUSCULAR HGB CONC 34.1 g/dl (32.0-36.5); MEAN CORPUSCULAR VOLUME 88.3 fl (80.0-96.0); PLATELET COUNT, AUTOMATED 430 10^3/uL (150-450); RED BLOOD COUNT 4.88 10^6/uL (4.30-6.10)
[2020-10-09 14:08] LABS: ATYPICAL LYMPH 9 % (0-5); BASOPHILS 1 % (0-1); EOSINOPHILS 3 % (0-3); LYMPHOCYTES 27 % (16-44); METAMYELOCYTES 1 % (0-0); MONOCYTES 6 % (0-5); MYELOCYTES 1 % (0-0); NEUTROPHILS 47 % (28-66); PLATELET ESTIMATE INCREASED (NORMAL)
== END ==
LOC: M LAB 11:59
PROVIDERS: ATTEND Nurse Practitioner Family
DX: J45.30 Mild persistent asthma, uncomplicated (principal)

== ENCOUNTER → 2020-12-18 | Outpatient (CLI) | payer OTHER ==
[~2020-12-18] MED LIST changes: +METHACHOLINE KIT (J7674) INH ONE
--- NOTE | 2020-12-18 10:25 | PFTRPT ---
Height: 71.00 Inches Weight: 293.00 Lbs BSA: 2.48 Diagnosis: G47.33 DATE: 12/18/2020 ORDERED BY: Shasha Harrison QUALITY: Study of excellent technical quality. PROCEDURE: Under protocol, methacholine was administered. Even after a maximum dose of 25 mg or 188.875 CDUs, no provocation dose ever achieved. IMPRESSION: Negative methacholine challenge study. MTDD
== END ==
LOC: M CARPUL 12-11 10:31
PROVIDERS: ATTEND Nurse Practitioner Family
DX: G47.33 Obstructive sleep apnea (adult) (pediatric) (principal)
CPT/HCPCS: 94070; 95070; J7674

== ENCOUNTER → 2020-12-24 | Outpatient (CLI) | payer OTHER ==
[~2020-12-24] MED LIST changes: -METHACHOLINE KIT (J7674) INH ONE
--- NOTE | 2020-12-24 18:24 | REP ---
INDICATION: COUGH, PERSONAL HX COVID19. COMPARISON: CT angio 06/08/2020, portable chest 06/07/2019 TECHNIQUE: Noncontrast imaging through the chest with coronal and sagittal reconstructions provided. FINDINGS: Lung garner are better inflated than on the previous study there remains some elevation of the right diaphragm as before but only minimal compressive atelectatic change adjacent to the diaphragm. There is only minimal dependent atelectatic change deep sulcus right lower lobe. Complete clearing of the patchy basilar densities in the bases except for that minor dependent atelectatic change on the right. No pleural effusion, acute infiltrate, pulmonary nodule or parenchymal mass. Some minor scarring medial right apex. Heart is not enlarged. There is no pericardial thickening or effusion. Few calcifications in the aortic arch but no aneurysm. No pathologic sized mediastinal or hilar adenopathy. There is no axillary or supraclavicular mass. Some mild cylindrical bronchiectasis. Bone windows show the thoracic vertebral levels with some marginal osteophytes but no compression deformity. Sternum, manubrium, clavicles, visualized scapulae and ribs grossly intact there are degenerative changes of the right glenohumeral joint moderately severe the left unremarkable. Upper abdomen shows no hepatosplenomegaly. There is colonic interposition between the right lobe of the liver and diaphragm laterally and superiorly no no splenomegaly or focal lesion. There are calcified gallstones in the dependent gallbladder. The portion of pancreas, upper poles of the kidneys and stomach were unremarkable. No hiatal hernia. No adrenal abnormality. IMPRESSION: 1. Complete clearing of the parenchymal lung findings on the previous CT with only minimal dependent atelectatic change in the deep sulcus right lower lobe related to the elevated right diaphragm and some compressive atelectasis adjacent to the diaphragm itself also improved a due to better level of inflation on this study. No residual scarring fibrosis pleural effusion infiltrate or mass no new findings in the lung garner. 2. Heart, mediastinal contours, aorta unremarkable. 3. Upper abdomen without acute finding. There are calcified gallstones again noted in the dependent gallbladder. <Electronically signed by Marek Jean > 12/24/20 [id number]
== END ==
LOC: M PLAIMG 14:17
PROVIDERS: ATTEND Nurse Practitioner Family
DX: R05.9 Cough, unspecified (principal); Z86.16 Personal history of COVID-19; K80.60 Calculus of gallbladder and bile duct with cholecystitis, unspecified, without obstruction

== ENCOUNTER → 2021-01-06 | Outpatient (REF) | payer OTHER ==
[2021-01-06 13:39] LABS: PERCENT SATURATION 10.7 % (19.7-50.0)
== END ==
LOC: M LAB REF 12:27
PROVIDERS: ATTEND Physician Assistant Medical
DX: M17.12 Unilateral primary osteoarthritis, left knee (principal)

== ENCOUNTER → 2021-01-27 | Outpatient (REF) | payer OTHER ==
[2021-01-27 17:40] LABS: APPEARANCE, URINE CLEAR (CLEAR); BACTERIA, URINE AUTO NEGATIVE (NEGATIVE); BILIRUBIN, URINE AUTO NEGATIVE (NEGATIVE); BLOOD, URINE BLOOD NEGATIVE (NEGATIVE); COLOR, URINE STRAW (YELLOW); GLUCOSE, URINE (UA) AUTO NEGATIVE (NEGATIVE); KETONE, URINE AUTO NEGATIVE (NEGATIVE); LEUKOCYTE ESTERASE, URINE AUTO NEGATIVE (NEGATIVE); MUCUS, URINE SMALL (NEGATIVE); NITRITE, URINE AUTO NEGATIVE (NEGATIVE); PROTEIN, URINE AUTO NEGATIVE (NEGATIVE); RBC, URINE AUTO 0 /HPF (0-3); SPECIFIC GRAVITY URINE AUTO 1.006 (1.002-1.035); SQUAMOUS EPITHELIAL CELL UR AU 0 /HPF (0-6); UROBILINOGEN, URINE AUTO 0.2 mg/dL (0.0-2.0); WBC, URINE AUTO 0 /HPF (0-3)
[2021-01-27 17:56] LABS: INR 0.93; PROTHROMBIN TIME 12.9 SECONDS (12.7-14.5)
[2021-01-27 17:57] LABS: PARTIAL THROMBOPLASTIN TIME 31.4 SECONDS (25.9-37.0)
== END ==
LOC: M LAB REF 16:35
PROVIDERS: ATTEND Internal Medicine
DX: Z01.818 Encounter for other preprocedural examination (principal)

== ENCOUNTER → 2021-05-04 | Outpatient (REF) | payer OTHER ==
[~2021-05-04] MED LIST changes: +CVS5000S2 PO; +LOSA100T45 PO; -LOSA100T50 PO; +MITI1CAP; -OMEP-221 PO; +OMEP40CA5 PO; +POTA-151 PO; -POTA20TA6 PO; +TORS20TA2
[2021-05-06 17:07] LABS: H PYLORI SERUM QUANT IGM <9.0 units (0.0-8.9)
[2021-05-07 16:12] LABS: H PYLORI SERUM QUANT IgG ABY 0.85 (0.00-0.79)
== END ==
LOC: M LAB REF 16:03
PROVIDERS: ATTEND Physician Assistant Medical
DX: D75.839 Thrombocytosis, unspecified (principal); R10.9 Unspecified abdominal pain

== ENCOUNTER → 2021-05-05 | Outpatient (CLI) | payer OTHER ==
[~2021-05-05] MED LIST changes: -CVS5000S2 PO; -MITI1CAP; -TORS20TA2
== END ==
LOC: M WHC 07:51
PROVIDERS: ATTEND Physician Assistant Medical
DX: R16.1 Splenomegaly, not elsewhere classified (principal); K80.20 Calculus of gallbladder without cholecystitis without obstruction; R10.9 Unspecified abdominal pain; D47.3 Essential (hemorrhagic) thrombocythemia

== ENCOUNTER 2021-05-18 07:59 | Inpatient (IN) | payer OTHER ==
[~2021-05-18] VITALS: Ht 177.8 cm; Wt 134.5 kg
[~2021-05-18 07:59] MED LIST changes: +CVS5000S2 PO; +MITI1CAP PO; +TORS20TA2 PO
[2021-05-18] MEDS ORDERED: NS 500 ML IV ONE (09:50)
[2021-05-18] MEDS ORDERED: MORPHINE 4 MG/ML 1ML VIAL/SYRINGE IV ONE (09:50)
[2021-05-18 10:04] LABS: BASO % 0.7 % (0.0-1.0); EOS # 0.2 10^3/uL (0.0-0.5); EOS % 3.3 % (0.0-3.0); HEMATOCRIT 38.2 % (42.0-52.0); LYMPH # 1.2 10^3/uL (1.5-5.0); LYMPH % 20.8 % (24.0-44.0); MEAN CORPUSCULAR HEMOGLOBIN 28.3 pg (27.0-33.0); MONO # 0.6 10^3/uL (0.0-0.8); MONO % 10.3 % (2.0-8.0); NEUTROPHILS # 3.2 10^3/uL (1.5-8.5); NEUTROPHILS % 58.2 % (36.0-66.0); PLATELET COUNT, AUTOMATED 360 10^3/uL (150-450); WHITE BLOOD COUNT 5.5 10^3/uL (4.0-10.0)
[2021-05-18 10:35] LABS: ALBUMIN 3.2 GM/DL (3.2-5.2); ALT/SGPT 21 U/L (12-78); BILIRUBIN,DIRECT 0.3 MG/DL (0.0-0.2); BILIRUBIN,TOTAL 2.1 MG/DL (0.2-1.0); BLOOD UREA NITROGEN 11 MG/DL (7-18); CALCIUM LEVEL 8.7 MG/DL (8.8-10.2); CARBON DIOXIDE LEVEL 30 MEQ/L (21-32); CHLORIDE LEVEL 105 MEQ/L (98-107); CREATININE FOR GFR 1.28 MG/DL (0.70-1.30); GLOMERULAR FILTRATION RATE > 60.0 (>49); GLUCOSE, FASTING 90 MG/DL (70-100); POTASSIUM SERUM 3.3 MEQ/L (3.5-5.1); SODIUM LEVEL 139 MEQ/L (136-145); TOTAL PROTEIN 6.3 GM/DL (6.4-8.2)
[2021-05-18] MEDS ORDERED: POTASSIUM CHLORIDE 10MEQ SR TABLET PO ONE (11:15)
[2021-05-18] MEDS ORDERED: ONDANSETRON 4MG/2ML VIAL As Ordered ONE ×2 (11:33→18:06)
[2021-05-18] MEDS ORDERED: ONDANSETRON 4MG/2ML VIAL IV ONE (11:45)
[2021-05-18 12:03] LABS: CHOLESTEROL LEVEL 122 MG/DL (<200); CHOLESTEROL RISK RATIO 2.975 (<5); HDL CHOLESTEROL 41 MG/DL (>40); LDL CHOLESTEROL 46 MG/DL (<100); LIPASE 58 U/L (73-393); NON-HDL-C 81 MG/DL; TRIGLYCERIDES LEVEL 174 MG/DL (<150)
[2021-05-18 14:27] LABS: RSV AMPLIFICATION NEGATIVE (NEGATIVE)
[2021-05-18] MEDS ORDERED: ONDANSETRON 4MG/2ML VIAL IV PRN ×2 (16:05→19:30)
[2021-05-18] MEDS ORDERED: MORPHINE 4 MG/ML 1ML VIAL/SYRINGE IV PRN (16:05)
[2021-05-18] MEDS ORDERED: ADV250INH INH (16:19)
[2021-05-18] MEDS ORDERED: PANT40TA29 PO (16:19)
[2021-05-18] MEDS ORDERED: AMLO1TAB24 PO (16:19)
[2021-05-18] MEDS ORDERED: B-12100010 PO (16:19)
[2021-05-18] MEDS ORDERED: HOME MED LIST COMPLETE! XX SCH (16:20)
[2021-05-18] MEDS ORDERED: ISOVUE-300 61% 50ML VIAL As Ordered ONE (16:23)
[2021-05-18] MEDS: LR 1,000 ML IV SCH ×2 (16:40→21:49)
[2021-05-18] MEDS ORDERED: CIPROFLOXACIN 400 MG in IV 1 EA IV SCH (18:00)
[2021-05-18] MEDS ORDERED: propofoL 200 MG/20 ML VIAL As Ordered ONE (18:05)
[2021-05-18] MEDS ORDERED: ROCURONIUM BROMIDE 50 MG/5 ML VIAL As Ordered ONE (18:05)
[2021-05-18] MEDS ORDERED: LIDOCAINE 2% 100MG/5ML SDV (FOR ANES.) As Ordered ONE (18:05)
[2021-05-18] MEDS ORDERED: fentaNYL 100 MCG/2 ML INJECTION As Ordered ONE (18:06)
[2021-05-18] MEDS ORDERED: dexameTHASONE 4 MG/ML 1ML VIAL (J1100 PER 1MG) As Ordered ONE (18:06)
[2021-05-18] MEDS ORDERED: MIDAZOLAM INJ 2MG/2ML VIAL (J2250 PER 1MG) As Ordered ONE (18:06)
[2021-05-18] MEDS ORDERED: metroNIDAZOLE/NACL 500MG(5MG/ML) 100ML BAG As Ordered ONE (18:43)
[2021-05-18] MEDS ORDERED: CIPROFLOXACIN/D5W 400 MG/200 ML BAG (J0744) As Ordered ONE (18:43)
[2021-05-18] MEDS ORDERED: PHENYLephrine 500MCG 5ML (100MCG/ML) SYRINGE As Ordered ONE (18:46)
[2021-05-18] MEDS: metroNIDAZOLE 500 MG in IV 1 EA IV SCH (18:47)
[2021-05-18] MEDS ORDERED: ESMOLOL INJ 100MG/10ML VIAL As Ordered ONE (18:49)
[2021-05-18] MEDS ORDERED: SUGAMMADEX SODIUM 500 MG/5 ML VIAL (BRIDION) As Ordered ONE (18:55)
[2021-05-18] MEDS ORDERED: fentaNYL 100 MCG/2 ML INJECTION IV PRN (19:30)
[2021-05-18] MEDS ORDERED: oxyCODONE 5MG TAB PO PRN (19:30)
[2021-05-18] MEDS ORDERED: METOCLOPRAMIDE INJ 10MG/2ML VIAL (J2765 PER 1) IV PRN (19:30)
[2021-05-18] MEDS ORDERED: LR 1,000 ML IV SCH (19:30)
[2021-05-18 20:30] VITALS: BP 134/74
[2021-05-18 21:00] VITALS: BP 160/89
[2021-05-18 21:30] VITALS: BP 159/85
[2021-05-18] MEDS: cloNIDine 0.2 MG TAB PO SCH (21:42)
[2021-05-18 22:00] VITALS: BP 162/98
[2021-05-18] MEDS: ADVAIR HFA 115/21MCG INHALER INH SCH (22:16)
[2021-05-18 23:00] VITALS: BP 222/130
[2021-05-18 23:34] VITALS: BP 190/110
[2021-05-18] MEDS ORDERED: TAMSULOSIN 0.4 MG CAP PO ONE (23:50)
[2021-05-19 00:16] LABS: HEMATOCRIT 39.4 % (42.0-52.0); HEMOGLOBIN 13.1 g/dl (13.5-17.5); MEAN CORPUSCULAR HEMOGLOBIN 28.7 pg (27.0-33.0); MEAN CORPUSCULAR HGB CONC 33.2 g/dl (32.0-36.5); MEAN CORPUSCULAR VOLUME 86.2 fl (80.0-96.0); PLATELET COUNT, AUTOMATED 328 10^3/uL (150-450); RED BLOOD COUNT 4.57 10^6/uL (4.30-6.10)
[2021-05-19 00:18] LABS: CREATININE FOR GFR 1.49 MG/DL (0.70-1.30); GLOMERULAR FILTRATION RATE 50.5 (>49); MAGNESIUM LEVEL 1.7 MG/DL (1.8-2.4)
[2021-05-19] MEDS ORDERED: MAGNESIUM OXIDE 400MG TAB (MAG-OX) PO ONE (00:20)
[2021-05-19 00:25] VITALS: BP 157/94
[2021-05-19] MEDS ORDERED: amLODIPine 5 MG TAB PO ONE (00:40)
[2021-05-19 00:49] LABS: ATYPICAL LYMPH 1 % (0-5); BASOPHILS 1 % (0-1); LYMPHOCYTES 4 % (16-44); METAMYELOCYTES 1 % (0-0); MYELOCYTES 1 % (0-0); NEUTROPHILS 88 % (28-66)
[2021-05-19 00:50] LABS: PLATELET CLUMPS SMALL AMT; PLATELET ESTIMATE NORMAL (NORMAL)
[2021-05-19] MEDS ORDERED: LACTATED RINGER'S 1000 ML IV ONE ×2 (00:50→06:00)
[2021-05-19] MEDS: metroNIDAZOLE 500 MG in IV 1 EA IV SCH (00:50)
[2021-05-19] MEDS: PIPERACILLIN/TAZOBACTAM SOD 3.375 GM in D5W MINI-BAG PLUS 50 ML IV SCH ×4 (02:02→18:08)
[2021-05-19] MEDS: ACETAMINOPHEN TAB 650MG DOSE (2X325MG) PO PRN ×3 (02:32→18:08)
[2021-05-19 04:00] VITALS: BP 119/72
[2021-05-19] MEDS ORDERED: LR 1,000 ML IV ONE ×2 (04:05→04:15)
[2021-05-19 04:27] LABS: HEMATOCRIT 34.5 % (42.0-52.0); HEMOGLOBIN 11.7 g/dl (13.5-17.5); MEAN CORPUSCULAR HEMOGLOBIN 28.5 pg (27.0-33.0); MEAN CORPUSCULAR HGB CONC 33.9 g/dl (32.0-36.5); MEAN CORPUSCULAR VOLUME 83.9 fl (80.0-96.0); RED BLOOD COUNT 4.11 10^6/uL (4.30-6.10); WHITE BLOOD COUNT 6.8 10^3/uL (4.0-10.0)
[2021-05-19 04:47] LABS: PLATELET COUNT, AUTOMATED 221 10^3/uL (150-450)
[2021-05-19] MEDS: LR 1,000 ML IV SCH ×3 (05:25→20:01)
[2021-05-19 05:42] LABS: ALBUMIN 2.7 GM/DL (3.2-5.2); BILIRUBIN,TOTAL 3.8 MG/DL (0.2-1.0); CALCIUM LEVEL 8.4 MG/DL (8.8-10.2); CREATININE FOR GFR 1.44 MG/DL (0.70-1.30); GLOMERULAR FILTRATION RATE 52.6 (>49); POTASSIUM SERUM 2.9 MEQ/L (3.5-5.1); TOTAL PROTEIN 6.1 GM/DL (6.4-8.2)
[2021-05-19] MEDS: POTASSIUM CHLORIDE 10MEQ SR TABLET PO SCH ×2 (06:11→09:20)
[2021-05-19] MEDS: ADVAIR HFA 115/21MCG INHALER INH SCH ×2 (07:13→20:03)
[2021-05-19 08:02] VITALS: BP 120/70
[2021-05-19] MEDS: amLODIPine 5 MG TAB PO SCH (09:20)
[2021-05-19] MEDS: TAMSULOSIN 0.4 MG CAP PO SCH (09:20)
[2021-05-19] MEDS: KCL 10MEQ/100ML SWI (KRUN) 10 MEQ in IV 1 EA IV SCH ×3 (09:20→11:47)
[2021-05-19] MEDS: PANTOPRAZOLE 40MG VIAL IV SCH (09:21)
[2021-05-19 10:36] LABS: ALBUMIN 2.6 GM/DL (3.2-5.2); BILIRUBIN,DIRECT 0.5 MG/DL (0.0-0.2); BILIRUBIN,TOTAL 3.1 MG/DL (0.2-1.0); TOTAL PROTEIN 6.2 GM/DL (6.4-8.2)
[2021-05-19 12:03] VITALS: BP 121/69
[2021-05-19 13:27] LABS: CALCIUM LEVEL 8.7 MG/DL (8.8-10.2); CREATININE FOR GFR 1.34 MG/DL (0.70-1.30); GLOMERULAR FILTRATION RATE 57.1 (>49); POTASSIUM SERUM 4.1 MEQ/L (3.5-5.1)
[2021-05-19 16:36] VITALS: BP 122/62
[2021-05-19 19:58] VITALS: BP 114/70
[2021-05-19] MEDS: cloNIDine 0.2 MG TAB PO SCH (20:08)
[2021-05-20] VITALS (7 sets, daily range): BP systolic 122–160; BP diastolic 71–92
[2021-05-20] MEDS: PIPERACILLIN/TAZOBACTAM SOD 3.375 GM in D5W MINI-BAG PLUS 50 ML IV SCH ×4 (00:25→18:29)
[2021-05-20] MEDS: LR 1,000 ML IV SCH ×3 (03:17→20:30)
[2021-05-20 06:21] LABS: HEMATOCRIT 34.4 % (42.0-52.0); HEMOGLOBIN 11.4 g/dl (13.5-17.5); MEAN CORPUSCULAR HEMOGLOBIN 28.6 pg (27.0-33.0); MEAN CORPUSCULAR HGB CONC 33.1 g/dl (32.0-36.5); MEAN CORPUSCULAR VOLUME 86.4 fl (80.0-96.0); PLATELET COUNT, AUTOMATED 183 10^3/uL (150-450); RED BLOOD COUNT 3.98 10^6/uL (4.30-6.10); WHITE BLOOD COUNT 2.6 10^3/uL (4.0-10.0)
[2021-05-20 06:53] LABS: ALBUMIN 2.4 GM/DL (3.2-5.2); CALCIUM LEVEL 8.7 MG/DL (8.8-10.2); CREATININE FOR GFR 1.36 MG/DL (0.70-1.30); GLOMERULAR FILTRATION RATE 56.2 (>49); MAGNESIUM LEVEL 2.1 MG/DL (1.8-2.4); TOTAL PROTEIN 5.9 GM/DL (6.4-8.2)
[2021-05-20 07:21] LABS: ATYPICAL LYMPH 1 % (0-5); LYMPHOCYTES 18 % (16-44); MONOCYTES 7 % (0-5); NEUTROPHILS 73 % (28-66); PLATELET ESTIMATE NORMAL (NORMAL)
[2021-05-20] MEDS: ADVAIR HFA 115/21MCG INHALER INH SCH ×2 (07:33→19:39)
[2021-05-20] MEDS: amLODIPine 5 MG TAB PO SCH (08:00)
[2021-05-20] MEDS: TAMSULOSIN 0.4 MG CAP PO SCH (08:00)
[2021-05-20] MEDS: PANTOPRAZOLE 40MG VIAL IV SCH (08:01)
[2021-05-20 08:23] LABS: BILIRUBIN,DIRECT 0.5 MG/DL (0.0-0.2)
[2021-05-20] MEDS ORDERED: NS 500 ML IV ONE (10:00)
[2021-05-20] MEDS ORDERED: ISOVUE-370 76% 100ML VIAL As Ordered ONE (10:15)
[2021-05-20 12:39] LABS: CK-MB VALUE MASS < 1.0 NG/ML (<3.6); CPK CREATINE PHOSPHOKINASE 52 U/L (39-308); MB/CK RELATIVE INDEX 1.92 (< OR =4)
[2021-05-20] MEDS: cloNIDine 0.2 MG TAB PO SCH (20:30)
[2021-05-21] MEDS: ACETAMINOPHEN TAB 650MG DOSE (2X325MG) PO PRN (00:29)
[2021-05-21] MEDS: PIPERACILLIN/TAZOBACTAM SOD 3.375 GM in D5W MINI-BAG PLUS 50 ML IV SCH ×4 (01:06→19:33)
[2021-05-21 01:23] VITALS: BP 149/85
[2021-05-21] MEDS: LR 1,000 ML IV SCH (05:11)
[2021-05-21 05:59] VITALS: BP 143/85
[2021-05-21 06:17] LABS: BASO % 1.4 % (0.0-1.0); EOS # 0.1 10^3/uL (0.0-0.5); EOS % 6.8 % (0.0-3.0); HEMATOCRIT 32.9 % (42.0-52.0); HEMOGLOBIN 10.9 g/dl (13.5-17.5); LYMPH # 0.6 10^3/uL (1.5-5.0); MEAN CORPUSCULAR HEMOGLOBIN 28.4 pg (27.0-33.0); MEAN CORPUSCULAR HGB CONC 33.1 g/dl (32.0-36.5); MEAN CORPUSCULAR VOLUME 85.7 fl (80.0-96.0); MONO # 0.3 10^3/uL (0.0-0.8); NEUTROPHILS % 45.4 % (36.0-66.0); PLATELET COUNT, AUTOMATED 211 10^3/uL (150-450); RED BLOOD COUNT 3.84 10^6/uL (4.30-6.10); WHITE BLOOD COUNT 2.1 10^3/uL (4.0-10.0)
[2021-05-21 06:42] LABS: ALBUMIN 2.5 GM/DL (3.2-5.2); ALT/SGPT 21 U/L (12-78); BILIRUBIN,TOTAL 1.5 MG/DL (0.2-1.0); BLOOD UREA NITROGEN 7 MG/DL (7-18); CALCIUM LEVEL 8.3 MG/DL (8.8-10.2); CARBON DIOXIDE LEVEL 31 MEQ/L (21-32); CHLORIDE LEVEL 109 MEQ/L (98-107); CREATININE FOR GFR 1.23 MG/DL (0.70-1.30); GLOMERULAR FILTRATION RATE > 60.0 (>49); GLUCOSE, FASTING 89 MG/DL (70-100); POTASSIUM SERUM 3.8 MEQ/L (3.5-5.1); SODIUM LEVEL 142 MEQ/L (136-145); TOTAL PROTEIN 5.4 GM/DL (6.4-8.2)
[2021-05-21 07:07] LABS: NEUTROPHILS # 0.9 10^3/uL (1.5-8.5)
[2021-05-21] MEDS: ADVAIR HFA 115/21MCG INHALER INH SCH ×2 (07:29→19:38)
[2021-05-21] MEDS ORDERED: VANCOMYCIN HCL 1,000 MG, VIAL MATE ADAPTER 1 EACH in NS 250 ML IV SCH (08:00)
[2021-05-21 08:09] LABS: C REACTIVE PROTEIN QUANTITATIV 7.33 MG/DL (0.00-0.30)
[2021-05-21 08:20] LABS: ERYTHROCYTE SEDIMENTATION RATE 31 mm/hr (0-20)
[2021-05-21] MEDS: TAMSULOSIN 0.4 MG CAP PO SCH (08:27)
[2021-05-21] MEDS: PANTOPRAZOLE 40MG VIAL IV SCH (08:27)
[2021-05-21] MEDS: amLODIPine 5 MG TAB PO SCH (08:30)
[2021-05-21] MEDS ORDERED: VANCOMYCIN HCL 750 MG, VIAL MATE ADAPTER 1 EACH in NS 250 ML IV ONE (09:00)
[2021-05-21 14:00] VITALS: BP 128/69
[2021-05-21] MEDS: cloNIDine 0.2 MG TAB PO SCH (20:21)
[2021-05-22] MEDS: PIPERACILLIN/TAZOBACTAM SOD 3.375 GM in D5W MINI-BAG PLUS 50 ML IV SCH ×3 (01:14→13:41)
[2021-05-22 06:00] VITALS: BP 137/90
[2021-05-22 06:16] LABS: HEMATOCRIT 32.4 % (42.0-52.0); MEAN CORPUSCULAR HEMOGLOBIN 28.9 pg (27.0-33.0); PLATELET COUNT, AUTOMATED 257 10^3/uL (150-450); RED BLOOD COUNT 3.81 10^6/uL (4.30-6.10); WHITE BLOOD COUNT 2.5 10^3/uL (4.0-10.0)
[2021-05-22 06:49] LABS: ALBUMIN 2.6 GM/DL (3.2-5.2); BILIRUBIN,TOTAL 1.3 MG/DL (0.2-1.0); CALCIUM LEVEL 8.1 MG/DL (8.8-10.2); CREATININE FOR GFR 1.32 MG/DL (0.70-1.30); GLOMERULAR FILTRATION RATE 58.1 (>49); MAGNESIUM LEVEL 1.9 MG/DL (1.8-2.4); TOTAL PROTEIN 5.9 GM/DL (6.4-8.2)
[2021-05-22 06:53] LABS: ATYPICAL LYMPH 1 % (0-5); EOSINOPHILS 13 % (0-3); LYMPHOCYTES 40 % (16-44); MONOCYTES 7 % (0-5); NEUTROPHILS 39 % (28-66)
[2021-05-22 06:54] LABS: PLATELET ESTIMATE NORMAL (NORMAL)
[2021-05-22] MEDS: ADVAIR HFA 115/21MCG INHALER INH SCH (07:26)
[2021-05-22] MEDS ORDERED: POTASSIUM CHLORIDE 10MEQ SR TABLET PO ONE (08:15)
[2021-05-22] MEDS ORDERED: NS 1,000 ML IV SCH (08:25)
[2021-05-22 09:45] VITALS: BP 137/90
[2021-05-22] MEDS: TAMSULOSIN 0.4 MG CAP PO SCH (09:45)
[2021-05-22] MEDS: KCL 10MEQ/100ML SWI (KRUN) 10 MEQ in IV 1 EA IV SCH ×4 (09:45→12:14)
[2021-05-22] MEDS: amLODIPine 5 MG TAB PO SCH (09:45)
[2021-05-22] MEDS: PANTOPRAZOLE 40MG VIAL IV SCH (09:53)
[2021-05-22 14:00] VITALS: BP 145/90
[2021-05-22 15:57] LABS: CLOSTRIDIUM DIFFICILE PCR NEGATIVE (NEGATIVE)
[2021-05-22] MEDS ORDERED: AMOX875T2 PO (17:16)
[2021-05-22] MEDS ORDERED: ACET500T15 PO (17:16)
== END 2021-05-22 18:40 | disposition home or self-care (01) ==
LOC: M ED 07:59 → M ED INP 08:00 → M MSPAV 20:24 → M PCU 05-19 00:23 → M MSPAV 05-21 00:35
PROVIDERS: ADMIT Internal Medicine Nephrology; ATTEND Family Medicine
PROC: 0F998ZZ Drainage of Common Bile Duct, Via Natural or Artificial Opening Endoscopic (ICD-10-PCS; 2021-05-18)
PROC: 0FC98ZZ Extirpation of Matter from Common Bile Duct, Via Natural or Artificial Opening Endoscopic (ICD-10-PCS; principal; 2021-05-18 17:30)
DX: K80.62 Calculus of gallbladder and bile duct with acute cholecystitis without obstruction (principal); A41.89 Other specified sepsis; Z68.41 Body mass index [BMI] 40.0-44.9, adult; R17 Unspecified jaundice; E66.01 Morbid (severe) obesity due to excess calories; I10 Essential (primary) hypertension; G47.33 Obstructive sleep apnea (adult) (pediatric); E78.5 Hyperlipidemia, unspecified; K21.9 Gastro-esophageal reflux disease without esophagitis; M19.90 Unspecified osteoarthritis, unspecified site; I87.2 Venous insufficiency (chronic) (peripheral); N40.0 Benign prostatic hyperplasia without lower urinary tract symptoms; J45.909 Unspecified asthma, uncomplicated; Z79.82 Long term (current) use of aspirin; Z96.652 Presence of left artificial knee joint; Z79.899 Other long term (current) drug therapy

== ENCOUNTER → 2021-07-23 | Outpatient (CLI) | payer OTHER ==
[~2021-07-23] MED LIST changes: +ALBU2.5V10 INH; -ALBU83IN INH; +AMOX875T2 PO; +B-12100010 PO; +PANT40TA29 PO
== END ==
LOC: M LABSMTC 09:07
PROVIDERS: ATTEND Anesthesiology
DX: Z11.52 Encounter for screening for COVID-19 (principal); Z20.822 Contact with and (suspected) exposure to COVID-19

== ENCOUNTER 2021-07-28 15:15 | Day surgery (SDC) | payer OTHER ==
[~2021-07-28] VITALS: Ht 180.3 cm; Wt 135.1 kg
[~2021-07-28 15:15] MED LIST changes: +LR 1,000 ML IV SCH; +ceFAZolin SOD 2 GM in IV 1 EA IV ONE
[2021-07-28] MEDS ORDERED: LR 1,000 ML IV SCH ×2 (15:45→20:15)
[2021-07-28] MEDS ORDERED: propofoL 200 MG/20 ML VIAL As Ordered ONE (16:18)
[2021-07-28] MEDS ORDERED: ROCURONIUM BROMIDE 50 MG/5 ML VIAL As Ordered ONE ×2 (16:18→18:43)
[2021-07-28] MEDS ORDERED: LIDOCAINE 2% 100MG/5ML SDV (FOR ANES.) As Ordered ONE (16:18)
[2021-07-28] MEDS ORDERED: fentaNYL 250 MCG/5 ML INJECTION As Ordered ONE (16:19)
[2021-07-28] MEDS ORDERED: MIDAZOLAM INJ 2MG/2ML VIAL (J2250 PER 1MG) As Ordered ONE (16:19)
[2021-07-28] MEDS ORDERED: HYDROmorphone HCL 2MG/ML 1ML VIAL As Ordered ONE ×2 (16:47→18:49)
[2021-07-28] MEDS ORDERED: BUPIVACAINE HCL 0.25% 30ML VIAL As Ordered ONE (17:29)
[2021-07-28] MEDS ORDERED: HYDR-3715 PO (17:45)
[2021-07-28] MEDS ORDERED: ONDANSETRON 4MG/2ML VIAL As Ordered ONE (18:34)
[2021-07-28] MEDS ORDERED: dexameTHASONE 4 MG/ML 1ML VIAL (J1100 PER 1MG) As Ordered ONE (18:34)
[2021-07-28] MEDS ORDERED: ACETAMINOPHEN 1000MG 100ML IV BTL (OFIRMEV) (J0131 PER 10MG) As Ordered ONE (18:34)
[2021-07-28] MEDS ORDERED: PHENYLephrine 500MCG 5ML (100MCG/ML) SYRINGE As Ordered ONE (18:45)
[2021-07-28] MEDS ORDERED: KETOROLAC 60MG 2ML VIAL As Ordered ONE (18:53)
[2021-07-28] MEDS ORDERED: ePHEDrine SULFATE 25 MG/5 ML(5MG/ML) SYRINGE As Ordered ONE (19:04)
[2021-07-28] MEDS ORDERED: SUGAMMADEX SODIUM 500 MG/5 ML VIAL (BRIDION) As Ordered ONE (19:24)
[2021-07-28] MEDS ORDERED: ONDANSETRON 4MG/2ML VIAL IV PRN (20:15)
[2021-07-28] MEDS ORDERED: fentaNYL 100 MCG/2 ML INJECTION IV PRN (20:15)
[2021-07-28] MEDS ORDERED: oxyCODONE 5MG TAB PO PRN (20:15)
[2021-07-28 22:16] VITALS: BP 152/92
== END 2021-07-28 22:17 | disposition home or self-care (01) ==
LOC: M SDC 15:15
PROVIDERS: ATTEND Surgery
DX: K80.10 Calculus of gallbladder with chronic cholecystitis without obstruction (principal); K21.9 Gastro-esophageal reflux disease without esophagitis; I13.0 Hypertensive heart and chronic kidney disease with heart failure and stage 1 through stage 4 chronic kidney disease, or unspecified chronic kidney disease; N18.30 Chronic kidney disease, stage 3 unspecified; J44.9 Chronic obstructive pulmonary disease, unspecified; G47.33 Obstructive sleep apnea (adult) (pediatric); I50.32 Chronic diastolic (congestive) heart failure; Z86.73 Personal history of transient ischemic attack (TIA), and cerebral infarction without residual deficits; E78.00 Pure hypercholesterolemia, unspecified; M10.9 Gout, unspecified; E66.9 Obesity, unspecified; Z79.82 Long term (current) use of aspirin; Z79.51 Long term (current) use of inhaled steroids; Z79.899 Other long term (current) drug therapy; J45.909 Unspecified asthma, uncomplicated
CPT/HCPCS: 47562; 88304; J0131; J0690; J1100; J1170; J1885; J2250; J2370; J2405; J3010; S2900

== ENCOUNTER → 2022-08-10 | Outpatient (CLI) | payer OTHER ==
[~2022-08-10] MED LIST changes: +HYDR-3715 PO; -LOSA100T45 PO; +LOSA100T46 PO; -LR 1,000 ML IV SCH; -POTA10CA32 PO; +POTA10CA60 PO; -ceFAZolin SOD 2 GM in IV 1 EA IV ONE
== END ==
LOC: M WUC 11:44
PROVIDERS: ATTEND Physician Assistant Medical
DX: R31.9 Hematuria, unspecified (principal)

== ENCOUNTER → 2022-08-13 | Outpatient (CLI) | payer MEDICARE, OTHER | LOC: M PLAIMG 08:35 | PROVIDERS: ATTEND Physician Assistant Medical | DX: R31.9 Hematuria, unspecified (principal) ==

== ENCOUNTER → 2022-08-18 | Outpatient (REF) | payer MEDICARE, OTHER ==
[2022-08-18 14:39] LABS: APPEARANCE, URINE HAZY (CLEAR); BACTERIA, URINE AUTO NEGATIVE (NEGATIVE); BILIRUBIN, URINE AUTO NEGATIVE (NEGATIVE); BLOOD, URINE BLOOD 3+ (NEGATIVE); COLOR, URINE YELLOW (YELLOW); GLUCOSE, URINE (UA) AUTO NEGATIVE (NEGATIVE); KETONE, URINE AUTO NEGATIVE (NEGATIVE); LEUKOCYTE ESTERASE, URINE AUTO NEGATIVE (NEGATIVE); MUCUS, URINE SMALL (NEGATIVE); NITRITE, URINE AUTO NEGATIVE (NEGATIVE); PROTEIN, URINE AUTO NEGATIVE (NEGATIVE); RBC, URINE AUTO TNTC /HPF (0-3); SPECIFIC GRAVITY URINE AUTO 1.014 (1.002-1.035); SQUAMOUS EPITHELIAL CELL UR AU 0 /HPF (0-6); UROBILINOGEN, URINE AUTO 0.2 mg/dL (0.0-2.0); WBC, URINE AUTO 2 /HPF (0-3)
== END ==
LOC: M LAB REF 12:25
PROVIDERS: ATTEND Physician Assistant Medical
DX: R31.9 Hematuria, unspecified (principal)

== ENCOUNTER → 2022-08-25 | Outpatient (REF) | payer MEDICARE, OTHER | LOC: M LAB REF 16:11 | PROVIDERS: ATTEND Physician Assistant Medical | DX: R31.9 Hematuria, unspecified (principal) ==

== ENCOUNTER → 2022-09-01 | Outpatient (REF) | payer MEDICARE, OTHER ==
[2022-09-01 13:08] LABS: APPEARANCE, URINE CLEAR (CLEAR); BACTERIA, URINE AUTO NEGATIVE (NEGATIVE); BILIRUBIN, URINE AUTO NEGATIVE (NEGATIVE); BLOOD, URINE BLOOD 1+ (NEGATIVE); COLOR, URINE YELLOW (YELLOW); GLUCOSE, URINE (UA) AUTO NEGATIVE (NEGATIVE); KETONE, URINE AUTO NEGATIVE (NEGATIVE); LEUKOCYTE ESTERASE, URINE AUTO NEGATIVE (NEGATIVE); NITRITE, URINE AUTO NEGATIVE (NEGATIVE); PROTEIN, URINE AUTO NEGATIVE (NEGATIVE); RBC, URINE AUTO 8 /HPF (0-3); SPECIFIC GRAVITY URINE AUTO 1.012 (1.002-1.035); SQUAMOUS EPITHELIAL CELL UR AU 0 /HPF (0-6); UROBILINOGEN, URINE AUTO 0.2 mg/dL (0.0-2.0); WBC, URINE AUTO 2 /HPF (0-3)
== END ==
LOC: M LAB REF 12:03
PROVIDERS: ATTEND Physician Assistant Medical
DX: R31.9 Hematuria, unspecified (principal)

== ENCOUNTER 2022-09-08 10:44 | Day surgery (SDC) | payer MEDICARE, OTHER ==
[~2022-09-08] VITALS: Ht 180.3 cm; Wt 137.1 kg
[~2022-09-08 10:44] MED LIST changes: +NS 1,000 ML IV ONE
[2022-09-08] MEDS ORDERED: LIDOCAINE 2% 100MG/5ML SDV (FOR ANES.) As Ordered ONE (12:34)
[2022-09-08] MEDS ORDERED: propofoL 500 MG/50 ML VIAL As Ordered ONE (12:34)
[2022-09-08 12:51] VITALS: TEMP 97.6
[2022-09-08 13:00] VITALS: BP 181/93; O2SAT 94
== END 2022-09-08 13:06 | disposition home or self-care (01) ==
LOC: M OPP 10:44
PROVIDERS: ATTEND Internal Medicine Gastroenterology
DX: Z12.11 Encounter for screening for malignant neoplasm of colon (principal); C18.9 Malignant neoplasm of colon, unspecified; D12.2 Benign neoplasm of ascending colon; K64.0 First degree hemorrhoids; K57.30 Diverticulosis of large intestine without perforation or abscess without bleeding; Z79.01 Long term (current) use of anticoagulants; Z79.82 Long term (current) use of aspirin; Z79.891 Long term (current) use of opiate analgesic; Z79.899 Other long term (current) drug therapy

== ENCOUNTER → 2022-09-24 | Outpatient (CLI) | payer MEDICARE, OTHER ==
[~2022-09-24] MED LIST changes: -NS 1,000 ML IV ONE
== END ==
LOC: M RAD 06:49
PROVIDERS: ATTEND Surgery
DX: C18.9 Malignant neoplasm of colon, unspecified (principal); R91.1 Solitary pulmonary nodule; K40.90 Unilateral inguinal hernia, without obstruction or gangrene, not specified as recurrent

== ENCOUNTER → 2022-09-29 | Outpatient (CLI) | payer MEDICARE, OTHER | LOC: M LAB 06:44 | PROVIDERS: ATTEND Surgery | DX: C18.9 Malignant neoplasm of colon, unspecified (principal) ==

== ENCOUNTER → 2022-09-30 | Outpatient (CLI) | payer MEDICARE, OTHER ==
[2022-09-30 13:41] LABS: HEMATOCRIT 40.6 % (42.0-52.0); HEMOGLOBIN 13.7 g/dl (13.5-17.5); MEAN CORPUSCULAR HEMOGLOBIN 30.1 pg (27.0-33.0); MEAN CORPUSCULAR HGB CONC 33.7 g/dl (32.0-36.5); MEAN CORPUSCULAR VOLUME 89.2 fl (80.0-96.0); PLATELET COUNT, AUTOMATED 514 10^3/uL (150-450); RED BLOOD COUNT 4.55 10^6/uL (4.30-6.10); WHITE BLOOD COUNT 6.3 10^3/uL (4.0-10.0)
[2022-09-30 14:09] LABS: CALCIUM LEVEL 8.7 MG/DL (8.3-10.6); CREATININE FOR GFR 1.46 MG/DL (0.70-1.30); GLOMERULAR FILTRATION RATE 51.6 (>49); POTASSIUM SERUM 4.2 MMOL/L (3.5-5.1)
== END ==
LOC: M LAB 13:09
PROVIDERS: ATTEND Anesthesiology
DX: Z01.818 Encounter for other preprocedural examination (principal); I10 Essential (primary) hypertension

== ENCOUNTER 2022-10-06 12:14 | Inpatient (IN) | payer MEDICARE, OTHER ==
[~2022-10-06] VITALS: Ht 180.3 cm; Wt 139.3 kg
[~2022-10-06 12:14] MED LIST changes: +cefoTEtan DISODIUM 2 GM in D5W MINI-BAG PLUS 50 ML IV ONE
[2022-10-06] MEDS ORDERED: NEOM500T PO (12:40)
[2022-10-06] MEDS ORDERED: METR-265 PO (12:40)
[2022-10-06] MEDS ORDERED: INSULIN LISPRO (NovoLOG) PER UNIT SC PRN ×2 (12:50→17:35)
[2022-10-06] MEDS ORDERED: LR 1,000 ML IV SCH ×2 (12:50→17:35)
[2022-10-06] MEDS ORDERED: MIDAZOLAM INJ 2MG/2ML VIAL As Ordered ONE (13:19)
[2022-10-06] MEDS ORDERED: fentaNYL 100 MCG/2 ML INJECTION As Ordered ONE (13:19)
[2022-10-06] MEDS ORDERED: ROCURONIUM BROMIDE 50MG/5ML VIAL As Ordered ONE ×2 (13:19→15:18)
[2022-10-06] MEDS ORDERED: LIDOCAINE 2% 100MG/5ML SDV (FOR ANES.) As Ordered ONE (13:19)
[2022-10-06] MEDS ORDERED: propofoL 200 MG/20 ML VIAL As Ordered ONE (13:19)
[2022-10-06] MEDS ORDERED: PANT40TA29 PO (13:23)
[2022-10-06] MEDS ORDERED: IBUP80TA PO (13:23)
[2022-10-06] MEDS ORDERED: ALBU8.5H INH (13:23)
[2022-10-06] MEDS ORDERED: POTA-151 PO (13:23)
[2022-10-06] MEDS ORDERED: MAGN400T33 PO (13:23)
[2022-10-06] MEDS ORDERED: HYDR200T46 PO (13:23)
[2022-10-06] MEDS ORDERED: HOME MED LIST COMPLETE! XX SCH (13:25)
[2022-10-06] MEDS ORDERED: HYDROmorphone HCL 2MG/ML 1ML VIAL As Ordered ONE (15:03)
[2022-10-06] MEDS ORDERED: ONDANSETRON 4MG 2ML VIAL As Ordered ONE (15:58)
[2022-10-06] MEDS ORDERED: ACETAMINOPHEN 1000MG 100ML IV BAG As Ordered ONE (15:58)
[2022-10-06] MEDS ORDERED: KETOROLAC 60MG 2ML VIAL As Ordered ONE (15:58)
[2022-10-06] MEDS ORDERED: HYDROMORPHONE HCL 0.5 MG/ 0.5 ML SYRINGE IV PRN (17:35)
[2022-10-06] MEDS ORDERED: METOCLOPRAMIDE INJ 10MG/2ML VIAL IV PRN (17:35)
[2022-10-06] MEDS ORDERED: ONDANSETRON 4MG 2ML VIAL IV PRN ×2 (17:35→17:50)
[2022-10-06] MEDS ORDERED: oxyCODONE 5MG TAB PO PRN (17:35)
[2022-10-06] MEDS ORDERED: fentaNYL 100 MCG/2 ML INJECTION IV PRN (17:35)
[2022-10-06] MEDS ORDERED: SUGAMMADEX SODIUM 500 MG/5 ML VIAL (BRIDION) As Ordered ONE (17:37)
[2022-10-06] MEDS ORDERED: KETOROLAC 30 MG/ML 1ML VIAL IV PRN (17:50)
[2022-10-06] MEDS ORDERED: ALBUTEROL 90 MCG/ACT 8GM HFA INHALER INH PRN (17:50)
[2022-10-06] MEDS ORDERED: MORPHINE 4 MG/ML 1ML VIAL IV PRN (17:50)
[2022-10-06 19:00] VITALS: BP 132/99; TEMP 97.2; O2SAT 94
[2022-10-06 19:30] VITALS: BP 132/94; TEMP 97.5; O2SAT 94
[2022-10-06] MEDS: ADVAIR HFA 115/21MCG INHALER INH SCH (20:00)
[2022-10-06] MEDS: SENOKOT S TAB PO SCH (20:11)
[2022-10-06] MEDS: cloNIDine 0.2 MG TAB PO SCH (20:11)
[2022-10-06] MEDS: PIPERACILLIN/TAZOBACTAM SOD 3.375 GM in D5W MINI-BAG PLUS 50 ML IV SCH (20:12)
[2022-10-06] MEDS: NS 1,000 ML IV SCH (20:12)
[2022-10-06 20:30] VITALS: BP 175/99; TEMP 97.3; O2SAT 94
[2022-10-06] MEDS: TORSEMIDE 20 MG TAB PO SCH (20:40)
[2022-10-06 21:30] VITALS: BP 168/97; TEMP 97.5; O2SAT 94
[2022-10-06 22:30] VITALS: BP 167/97; TEMP 97.2; O2SAT 96
[2022-10-06 23:30] VITALS: BP 159/96; TEMP 97.5; O2SAT 97
[2022-10-07] MEDS: PIPERACILLIN/TAZOBACTAM SOD 3.375 GM in D5W MINI-BAG PLUS 50 ML IV SCH ×3 (02:10→13:35)
[2022-10-07 03:30] VITALS: BP 162/97; TEMP 97.5; O2SAT 94
[2022-10-07] MEDS: NORCO, ANEXSIA 5/325MG TABLET (HYDROcodone/ACETAMINOPHEN) PO PRN ×3 (04:43→17:22)
[2022-10-07] MEDS: NS 1,000 ML IV SCH ×3 (05:20→15:16)
[2022-10-07 05:59] LABS: HEMATOCRIT 36.6 % (42.0-52.0); HEMOGLOBIN 12.4 g/dl (13.5-17.5); MEAN CORPUSCULAR HEMOGLOBIN 30.5 pg (27.0-33.0); MEAN CORPUSCULAR HGB CONC 33.9 g/dl (32.0-36.5); MEAN CORPUSCULAR VOLUME 90.1 fl (80.0-96.0); PLATELET COUNT, AUTOMATED 548 10^3/uL (150-450); RED BLOOD COUNT 4.06 10^6/uL (4.30-6.10); WHITE BLOOD COUNT 9.1 10^3/uL (4.0-10.0)
[2022-10-07 06:29] LABS: CALCIUM LEVEL 8.7 MG/DL (8.3-10.6); CREATININE FOR GFR 1.59 MG/DL (0.70-1.30); GLOMERULAR FILTRATION RATE 46.7 (>49); POTASSIUM SERUM 4.6 MMOL/L (3.5-5.1)
[2022-10-07] MEDS: ADVAIR HFA 115/21MCG INHALER INH SCH ×2 (07:21→19:38)
[2022-10-07] MEDS: COLCHICINE 0.6 MG TABLET PO SCH (09:28)
[2022-10-07] MEDS: TAMSULOSIN 0.4 MG CAP PO SCH (09:29)
[2022-10-07] MEDS: ATORVASTATIN 20 MG TAB PO SCH (09:33)
[2022-10-07] MEDS: PANTOPRAZOLE 40MG TAB (PROTONIX) PO SCH (09:33)
[2022-10-07] MEDS: HYDROXYCHLOROQUINE 200 MG TAB PO SCH (09:33)
[2022-10-07] MEDS: amLODIPine 5 MG TAB PO SCH (09:33)
[2022-10-07] MEDS: METOPROLOL SUCC (TopROL XL) 50MG **XL** TAB PO SCH (09:34)
[2022-10-07] MEDS: SENOKOT S TAB PO SCH ×2 (09:34→20:16)
[2022-10-07] MEDS: ENOXAPARIN 40MG/0.4ML SYRINGE (J1650 PER 10MG) SC SCH ×2 (09:35→20:16)
[2022-10-07 10:00] VITALS: BP 148/88; TEMP 98.1; O2SAT 95
[2022-10-07 14:00] VITALS: BP 148/89; TEMP 98.1; O2SAT 94
[2022-10-07 19:44] VITALS: BP 123/59; TEMP 98.8; O2SAT 94
[2022-10-07] MEDS: cloNIDine 0.2 MG TAB PO SCH (20:16)
[2022-10-08] MEDS: NORCO, ANEXSIA 5/325MG TABLET (HYDROcodone/ACETAMINOPHEN) PO PRN ×2 (01:11→08:28)
[2022-10-08] MEDS: NS 1,000 ML IV SCH (01:12)
[2022-10-08 05:15] VITALS: BP 140/79; TEMP 98.2; O2SAT 94
[2022-10-08 06:12] LABS: HEMATOCRIT 29.6 % (42.0-52.0); MEAN CORPUSCULAR HEMOGLOBIN 30.3 pg (27.0-33.0); MEAN CORPUSCULAR HGB CONC 33.4 g/dl (32.0-36.5); MEAN CORPUSCULAR VOLUME 90.5 fl (80.0-96.0); PLATELET COUNT, AUTOMATED 429 10^3/uL (150-450); RED BLOOD COUNT 3.27 10^6/uL (4.30-6.10); WHITE BLOOD COUNT 5.9 10^3/uL (4.0-10.0)
[2022-10-08] MEDS: ADVAIR HFA 115/21MCG INHALER INH SCH ×2 (06:14→21:13)
[2022-10-08 06:32] LABS: HEMOGLOBIN 9.9 g/dl (13.5-17.5)
[2022-10-08 06:41] LABS: CALCIUM LEVEL 8.2 MG/DL (8.3-10.6); CREATININE FOR GFR 1.83 MG/DL (0.70-1.30); GLOMERULAR FILTRATION RATE 39.7 (>49); POTASSIUM SERUM 3.9 MMOL/L (3.5-5.1)
[2022-10-08] MEDS: PANTOPRAZOLE 40MG TAB (PROTONIX) PO SCH (08:27)
[2022-10-08] MEDS: HYDROXYCHLOROQUINE 200 MG TAB PO SCH (08:27)
[2022-10-08] MEDS: TAMSULOSIN 0.4 MG CAP PO SCH (08:27)
[2022-10-08] MEDS: SENOKOT S TAB PO SCH ×2 (08:28→20:26)
[2022-10-08] MEDS: TORSEMIDE 20 MG TAB PO SCH (08:28)
[2022-10-08] MEDS: COLCHICINE 0.6 MG TABLET PO SCH (08:29)
[2022-10-08] MEDS: ATORVASTATIN 20 MG TAB PO SCH (08:29)
[2022-10-08] MEDS: ENOXAPARIN 40MG/0.4ML SYRINGE (J1650 PER 10MG) SC SCH ×2 (08:30→20:26)
[2022-10-08] MEDS: METOPROLOL SUCC (TopROL XL) 50MG **XL** TAB PO SCH (08:31)
[2022-10-08] MEDS: amLODIPine 5 MG TAB PO SCH (08:31)
[2022-10-08 14:15] VITALS: BP 135/85; TEMP 98.4; O2SAT 95
[2022-10-08] MEDS: cloNIDine 0.2 MG TAB PO SCH (20:25)
[2022-10-08 22:00] VITALS: BP 148/87; TEMP 98.2; O2SAT 93
[2022-10-09 06:00] VITALS: BP 145/87; TEMP 98.2; O2SAT 93
[2022-10-09 07:17] LABS: HEMATOCRIT 29.3 % (42.0-52.0); MEAN CORPUSCULAR HEMOGLOBIN 29.9 pg (27.0-33.0); MEAN CORPUSCULAR HGB CONC 34.1 g/dl (32.0-36.5); MEAN CORPUSCULAR VOLUME 87.7 fl (80.0-96.0); PLATELET COUNT, AUTOMATED 425 10^3/uL (150-450); RED BLOOD COUNT 3.34 10^6/uL (4.30-6.10); WHITE BLOOD COUNT 5.6 10^3/uL (4.0-10.0)
[2022-10-09] MEDS: ADVAIR HFA 115/21MCG INHALER INH SCH ×2 (07:24→19:41)
[2022-10-09 07:52] LABS: CALCIUM LEVEL 8.3 MG/DL (8.3-10.6); CREATININE FOR GFR 1.34 MG/DL (0.70-1.30); POTASSIUM SERUM 3.4 MMOL/L (3.5-5.1)
[2022-10-09] MEDS: ENOXAPARIN 40MG/0.4ML SYRINGE (J1650 PER 10MG) SC SCH (10:45)
[2022-10-09] MEDS: COLCHICINE 0.6 MG TABLET PO SCH (10:45)
[2022-10-09] MEDS: HYDROXYCHLOROQUINE 200 MG TAB PO SCH (10:45)
[2022-10-09] MEDS: amLODIPine 5 MG TAB PO SCH (10:47)
[2022-10-09] MEDS: TAMSULOSIN 0.4 MG CAP PO SCH (10:48)
[2022-10-09] MEDS: SENOKOT S TAB PO SCH (10:48)
[2022-10-09] MEDS: ATORVASTATIN 20 MG TAB PO SCH (10:48)
[2022-10-09] MEDS: METOPROLOL SUCC (TopROL XL) 50MG **XL** TAB PO SCH (10:48)
[2022-10-09] MEDS: PANTOPRAZOLE 40MG TAB (PROTONIX) PO SCH (10:49)
[2022-10-09] MEDS: KETOROLAC 30 MG/ML 1ML VIAL IV SCH ×3 (12:52→23:47)
[2022-10-09 14:00] VITALS: BP 147/88; TEMP 98.2; O2SAT 96
[2022-10-09] MEDS: cloNIDine 0.2 MG TAB PO SCH (21:17)
[2022-10-09 22:00] VITALS: BP 137/77; TEMP 98.4; O2SAT 93
[2022-10-10] MEDS: KETOROLAC 30 MG/ML 1ML VIAL IV SCH (05:22)
[2022-10-10 06:00] VITALS: BP 141/75; TEMP 97.5; O2SAT 93
[2022-10-10 06:53] LABS: HEMATOCRIT 28.7 % (42.0-52.0); HEMOGLOBIN 9.9 g/dl (13.5-17.5); MEAN CORPUSCULAR HEMOGLOBIN 30.4 pg (27.0-33.0); MEAN CORPUSCULAR HGB CONC 34.5 g/dl (32.0-36.5); PLATELET COUNT, AUTOMATED 451 10^3/uL (150-450); RED BLOOD COUNT 3.26 10^6/uL (4.30-6.10); WHITE BLOOD COUNT 5.3 10^3/uL (4.0-10.0)
[2022-10-10 07:23] LABS: CALCIUM LEVEL 8.3 MG/DL (8.3-10.6); CREATININE FOR GFR 1.37 MG/DL (0.70-1.30); GLOMERULAR FILTRATION RATE 55.5 (>49); POTASSIUM SERUM 3.8 MMOL/L (3.5-5.1)
[2022-10-10] MEDS: ADVAIR HFA 115/21MCG INHALER INH SCH (07:24)
[2022-10-10] MEDS: COLCHICINE 0.6 MG TABLET PO SCH (09:56)
[2022-10-10] MEDS: TORSEMIDE 20 MG TAB PO SCH (09:56)
[2022-10-10] MEDS: TAMSULOSIN 0.4 MG CAP PO SCH (09:56)
[2022-10-10] MEDS: HYDROXYCHLOROQUINE 200 MG TAB PO SCH (09:56)
[2022-10-10] MEDS: PANTOPRAZOLE 40MG TAB (PROTONIX) PO SCH (09:56)
[2022-10-10] MEDS: ATORVASTATIN 20 MG TAB PO SCH (09:57)
[2022-10-10 09:58] VITALS: BP 164/86
[2022-10-10] MEDS: METOPROLOL SUCC (TopROL XL) 50MG **XL** TAB PO SCH (09:58)
[2022-10-10] MEDS: amLODIPine 5 MG TAB PO SCH (09:59)
== END 2022-10-10 14:00 | disposition home or self-care (01) | DRG 331 ==
LOC: M OR 12:14 → M MS5PR 18:53 → EDSTATUS 10-07 08:30
PROVIDERS: ADMIT Surgery; ATTEND Surgery
PROC: 8E0W4CZ Robotic Assisted Procedure of Trunk Region, Percutaneous Endoscopic Approach (ICD-10-PCS; 2022-10-06)
PROC: 0DTM4ZZ Resection of Descending Colon, Percutaneous Endoscopic Approach (ICD-10-PCS; principal; 2022-10-06 14:00)
DX: C18.6 Malignant neoplasm of descending colon (principal); I10 Essential (primary) hypertension; M19.90 Unspecified osteoarthritis, unspecified site; G47.00 Insomnia, unspecified; H93.19 Tinnitus, unspecified ear; M54.30 Sciatica, unspecified side; F32.A Depression, unspecified; J45.909 Unspecified asthma, uncomplicated; G47.33 Obstructive sleep apnea (adult) (pediatric); Z96.652 Presence of left artificial knee joint

== ENCOUNTER → 2022-11-10 | Outpatient (CLI) | payer MEDICAID, MEDICARE ==
[~2022-11-10] VITALS: Ht 180.3 cm; Wt 140.0 kg
[~2022-11-10] MED LIST changes: +ALBU8.5H INH; +FLUT50SP17; +HYDR200T46 PO; +IBUP80TA PO; +LIDOCAINE W/EPINEPHRINE 1% 20ML VIAL As Ordered ONE; +MAGN400T33 PO; +METR-265 PO; +MIDAZOLAM INJ 2MG/2ML VIAL As Ordered ONE; +NEOM500T PO; +NORV5TAB PO; +NS 1,000 ML IV SCH; +OMEP40CA4 PO; +PROA1AER2 IN; +ceFAZolin 1GM VIAL As Ordered ONE; +ceFAZolin 2 GM/D5W 50 ML IV BAG As Ordered ONE; +ceFAZolin SOD 1 GM in D5W MINI-BAG PLUS 50 ML IV ONE; +ceFAZolin SOD 2 GM in IV 1 EA IV ONE; +ceFAZolin SOD 3 GM in IV 1 EA IV ONE; -cefoTEtan DISODIUM 2 GM in D5W MINI-BAG PLUS 50 ML IV ONE; +fentaNYL 100 MCG/2 ML INJECTION As Ordered ONE; +hydrALAZINE 20MG/ML 1ML VIAL As Ordered ONE
[2022-11-10 10:18] VITALS: TEMP 97.7
[2022-11-10 13:00] VITALS: BP 177/89; O2SAT 97
== END ==
LOC: M IRPRO 10:01
PROVIDERS: ATTEND Specialist
DX: C18.9 Malignant neoplasm of colon, unspecified (principal)
CPT/HCPCS: 36561; 99152; 99153; J0360; J0690; J2250; J3010

== ENCOUNTER → 2022-11-29 | Outpatient (CLI) | payer MEDICARE, OTHER ==
[~2022-11-29] MED LIST changes: +AZIT-10 PO; +LIDO30CR18 TOP; -LIDOCAINE W/EPINEPHRINE 1% 20ML VIAL As Ordered ONE; -MIDAZOLAM INJ 2MG/2ML VIAL As Ordered ONE; -NS 1,000 ML IV SCH; +ONDA-84 PO; +PROC10TA5 PO; -ceFAZolin 1GM VIAL As Ordered ONE; -ceFAZolin 2 GM/D5W 50 ML IV BAG As Ordered ONE; -ceFAZolin SOD 1 GM in D5W MINI-BAG PLUS 50 ML IV ONE; -ceFAZolin SOD 2 GM in IV 1 EA IV ONE; -ceFAZolin SOD 3 GM in IV 1 EA IV ONE; -fentaNYL 100 MCG/2 ML INJECTION As Ordered ONE; -hydrALAZINE 20MG/ML 1ML VIAL As Ordered ONE
== END ==
LOC: M PLARAD 08:23
PROVIDERS: ATTEND Specialist
DX: C18.6 Malignant neoplasm of descending colon (principal); R91.8 Other nonspecific abnormal finding of lung field
CPT/HCPCS: 78815; A9552

== ENCOUNTER → 2022-12-06 | Outpatient (CLI) | payer MEDICARE, OTHER ==
[~2022-12-06] MED LIST changes: +ELIQ5TAB PO
== END ==
LOC: M RAD 15:24
PROVIDERS: ATTEND Internal Medicine Hematology & Oncology
DX: I82.C11 Acute embolism and thrombosis of right internal jugular vein (principal)

== ENCOUNTER 2022-12-17 11:35 | Inpatient (IN) | payer MEDICARE, OTHER ==
[~2022-12-17] VITALS: Ht 180.3 cm; Wt 147.5 kg
[2022-12-17] MEDS ORDERED: TORS20TA2 PO (12:18)
[2022-12-17] MEDS ORDERED: ONDANSETRON 4MG 2ML VIAL IV ONE (12:20)
[2022-12-17] MEDS ORDERED: ONDANSETRON 4MG 2ML VIAL As Ordered ONE (12:23)
[2022-12-17 12:30] LABS: HEMATOCRIT 34.6 % (42.0-52.0); HEMOGLOBIN 11.9 g/dl (13.5-17.5); MEAN CORPUSCULAR HEMOGLOBIN 28.1 pg (27.0-33.0); MEAN CORPUSCULAR HGB CONC 34.4 g/dl (32.0-36.5); MEAN CORPUSCULAR VOLUME 81.8 fl (80.0-96.0); PLATELET COUNT, AUTOMATED 210 10^3/uL (150-450); RED BLOOD COUNT 4.23 10^6/uL (4.30-6.10); WHITE BLOOD COUNT 1.5 10^3/uL (4.0-10.0)
[2022-12-17] MEDS ORDERED: PROCHLORPER (12:43)
[2022-12-17 12:57] LABS: BILIRUBIN,DIRECT 0.6 MG/DL (<0.4); BILIRUBIN,TOTAL 1.6 MG/DL (0.3-1.2); CALCIUM LEVEL 8.3 MG/DL (8.3-10.6); CREATININE FOR GFR 1.52 MG/DL (0.70-1.30); GLOMERULAR FILTRATION RATE 49.1 (>49); POTASSIUM SERUM 3.3 MMOL/L (3.5-5.1); TOTAL PROTEIN 5.7 G/DL (5.7-8.2)
[2022-12-17 12:59] LABS: ATYPICAL LYMPH 3 % (0-5); BASOPHILS 3 % (0-1); EOSINOPHILS 1 % (0-3); LYMPHOCYTES 69 % (16-44); MONOCYTES 13 % (0-5); NEUTROPHILS 7 % (28-66)
[2022-12-17 13:00] LABS: PLATELET ESTIMATE NORMAL (NORMAL)
[2022-12-17] MEDS ORDERED: NS 1,000 ML IV ONE (13:00)
[2022-12-17] MEDS ORDERED: MORPHINE 4 MG/ML 1ML VIAL IV ONE (13:15)
[2022-12-17] MEDS ORDERED: ACETAMINOPHEN *IV* 1,000 MG in IV 1 EA IV ONE (13:15)
[2022-12-17] MEDS ORDERED: ISOVUE-370 76% 100ML VIAL As Ordered ONE (13:26)
[2022-12-17 13:28] LABS: MAGNESIUM LEVEL 1.9 MG/DL (1.8-2.4)
[2022-12-17 13:46] LABS: RSV AMPLIFICATION NEGATIVE (NEGATIVE)
[2022-12-17] MEDS ORDERED: PIPERACILLIN/TAZOBACTAM SOD 4.5 GM in D5W MINI-BAG PLUS 50 ML IV ONE (15:00)
[2022-12-17] MEDS ORDERED: MED REC IN PROGRESS XX SCH (15:10)
[2022-12-17] MEDS: KCL 10MEQ/100ML SWI (KRUN) 10 MEQ in IV 1 EA IV SCH ×2 (17:43→19:22)
[2022-12-17] MEDS: NS 1,000 ML IV SCH (18:17)
[2022-12-17] MEDS ORDERED: MAGN400T33 PO (19:40)
[2022-12-17] MEDS ORDERED: HYDR200T46 PO (19:40)
[2022-12-17] MEDS ORDERED: CYCL-707 PO (19:40)
[2022-12-17] MEDS ORDERED: FLUT1BLS5 NARES (19:42)
[2022-12-17] MEDS ORDERED: CLAR10CA3 PO (19:44)
[2022-12-17] MEDS ORDERED: RA B1TAB7 PO (19:47)
[2022-12-17] MEDS ORDERED: VITA500T40 PO (19:49)
[2022-12-17] MEDS ORDERED: VITA500C24 PO (19:51)
[2022-12-17] MEDS ORDERED: HOME MED LIST COMPLETE! XX SCH (19:55)
[2022-12-17] MEDS ORDERED: LIDO30CR18 TOP (20:10)
[2022-12-17 21:09] VITALS: BP 145/100; TEMP 97.9; O2SAT 96
[2022-12-17] MEDS: amLODIPine 5 MG TAB PO SCH (21:33)
[2022-12-17] MEDS: APIXABAN 5 MG TAB (ELIQUIS) PO SCH (21:33)
[2022-12-17] MEDS: ONDANSETRON 4MG 2ML VIAL IV PRN (22:55)
[2022-12-18] MEDS: KCL 10MEQ/100ML SWI (KRUN) 10 MEQ in IV 1 EA IV SCH ×2 (00:53→04:35)
[2022-12-18] MEDS: NS 1,000 ML IV SCH ×3 (02:15→23:01)
[2022-12-18 02:30] VITALS: BP 164/92; TEMP 99; O2SAT 96
[2022-12-18 06:13] VITALS: BP 129/86; TEMP 98; O2SAT 96
[2022-12-18 06:33] LABS: HEMATOCRIT 31.4 % (42.0-52.0); HEMOGLOBIN 10.8 g/dl (13.5-17.5); MEAN CORPUSCULAR HEMOGLOBIN 28.1 pg (27.0-33.0); MEAN CORPUSCULAR HGB CONC 34.4 g/dl (32.0-36.5); MEAN CORPUSCULAR VOLUME 81.6 fl (80.0-96.0); PLATELET COUNT, AUTOMATED 182 10^3/uL (150-450); RED BLOOD COUNT 3.85 10^6/uL (4.30-6.10); WHITE BLOOD COUNT 1.8 10^3/uL (4.0-10.0)
[2022-12-18 07:00] LABS: ALBUMIN 2.7 G/DL (3.2-5.2); BILIRUBIN,TOTAL 1.2 MG/DL (0.3-1.2); CALCIUM LEVEL 7.8 MG/DL (8.3-10.6); CREATININE FOR GFR 1.31 MG/DL (0.70-1.30); GLOMERULAR FILTRATION RATE 58.3 (>49); MAGNESIUM LEVEL 1.8 MG/DL (1.8-2.4); POTASSIUM SERUM 3.1 MMOL/L (3.5-5.1); TOTAL PROTEIN 5.2 G/DL (5.7-8.2)
[2022-12-18] MEDS ORDERED: KCL 40MEQ IN D5/NS 1000ML 1,000 ML IV SCH ×2 (07:50→11:00)
[2022-12-18] MEDS: ONDANSETRON 4MG 2ML VIAL IV PRN (08:18)
[2022-12-18] MEDS: APIXABAN 5 MG TAB (ELIQUIS) PO SCH ×2 (08:18→21:07)
[2022-12-18] MEDS: amLODIPine 5 MG TAB PO SCH (08:21)
[2022-12-18] MEDS ORDERED: ENOXAPARIN 40MG/0.4ML SYRINGE (J1650 PER 10MG) SC SCH (09:00)
[2022-12-18 10:00] VITALS: BP 157/97; TEMP 98.1; O2SAT 93
[2022-12-18] MEDS: traMADol 50 MG TAB PO PRN ×2 (13:40→23:07)
[2022-12-18 14:00] VITALS: BP 152/86; TEMP 97.9; O2SAT 99
[2022-12-18 18:00] VITALS: BP 143/95; TEMP 97.9; O2SAT 95
[2022-12-18 21:54] VITALS: BP 136/86; TEMP 99.1; O2SAT 99
[2022-12-18] MEDS: LOPERAMIDE 2 MG CAPLET PO PRN (23:06)
[2022-12-19 05:42] VITALS: BP 132/94; TEMP 99; O2SAT 98
[2022-12-19 06:50] LABS: HEMATOCRIT 32.8 % (42.0-52.0); HEMOGLOBIN 10.9 g/dl (13.5-17.5); MEAN CORPUSCULAR HEMOGLOBIN 27.3 pg (27.0-33.0); MEAN CORPUSCULAR HGB CONC 33.2 g/dl (32.0-36.5); MEAN CORPUSCULAR VOLUME 82.2 fl (80.0-96.0); PLATELET COUNT, AUTOMATED 169 10^3/uL (150-450); RED BLOOD COUNT 3.99 10^6/uL (4.30-6.10); WHITE BLOOD COUNT 2.3 10^3/uL (4.0-10.0)
[2022-12-19 07:12] LABS: ALBUMIN 2.6 G/DL (3.2-5.2); BILIRUBIN,TOTAL 0.9 MG/DL (0.3-1.2); CALCIUM LEVEL 7.8 MG/DL (8.3-10.6); CREATININE FOR GFR 1.32 MG/DL (0.70-1.30); GLOMERULAR FILTRATION RATE 57.8 (>49); TOTAL PROTEIN 5.1 G/DL (5.7-8.2)
[2022-12-19] MEDS: LOPERAMIDE 2 MG CAPLET PO PRN (09:30)
[2022-12-19] MEDS: amLODIPine 5 MG TAB PO SCH (09:31)
[2022-12-19] MEDS: POTASSIUM CHLORIDE 10MEQ SR TABLET PO SCH ×2 (09:31→10:46)
[2022-12-19] MEDS: NS 1,000 ML IV SCH (09:32)
[2022-12-19] MEDS: traMADol 50 MG TAB PO PRN (09:32)
[2022-12-19] MEDS: APIXABAN 5 MG TAB (ELIQUIS) PO SCH ×2 (09:48→20:10)
[2022-12-19 16:31] LABS: ATYPICAL LYMPH 14 % (0-5); BASOPHILS 2 % (0-1); EOSINOPHILS 1 % (0-3); LYMPHOCYTES 33 % (16-44); METAMYELOCYTES 1 % (0-0); MONOCYTES 43 % (0-5); MYELOCYTES 4 % (0-0); NEUTROPHILS 1 % (28-66); PLATELET ESTIMATE NORMAL (NORMAL)
[2022-12-19 19:44] VITALS: BP 144/93; TEMP 98.8; O2SAT 98
[2022-12-19] MEDS: AUGMENTIN 875 MG TAB PO SCH (20:10)
[2022-12-19 23:51] VITALS: BP 150/100; TEMP 98.8; O2SAT 97
[2022-12-20 00:07] VITALS: BP 180/8
[2022-12-20] MEDS ORDERED: cloNIDine 0.1MG TABLET PO ONE (00:10)
[2022-12-20 01:27] VITALS: BP 136/84
[2022-12-20] MEDS ORDERED: LevoFLOXacin 750 MG TABLET PO SCH (06:00)
[2022-12-20 06:08] VITALS: BP 152/92; TEMP 98.8; O2SAT 94
[2022-12-20 07:19] LABS: HEMATOCRIT 33.4 % (42.0-52.0); HEMOGLOBIN 11.5 g/dl (13.5-17.5); MEAN CORPUSCULAR HGB CONC 34.4 g/dl (32.0-36.5); MEAN CORPUSCULAR VOLUME 81.5 fl (80.0-96.0); PLATELET COUNT, AUTOMATED 214 10^3/uL (150-450); WHITE BLOOD COUNT 3.3 10^3/uL (4.0-10.0)
[2022-12-20 07:58] LABS: BASO % 0.9 % (0.0-1.0); EOS % 0.9 % (0.0-3.0); LYMPH # 1.7 10^3/uL (1.5-5.0); LYMPH % 52.1 % (24.0-44.0); MONO # 0.9 10^3/uL (0.0-0.8); MONO % 26.5 % (2.0-8.0); NEUTROPHILS % 14.1 % (36.0-66.0)
[2022-12-20 08:02] LABS: NEUTROPHILS # 0.5 10^3/uL (1.5-8.5)
[2022-12-20 08:50] LABS: CALCIUM LEVEL 8.1 MG/DL (8.3-10.6); CREATININE FOR GFR 1.31 MG/DL (0.70-1.30); GLOMERULAR FILTRATION RATE 58.3 (>49)
[2022-12-20 09:17] VITALS: BP 136/85
[2022-12-20] MEDS: amLODIPine 5 MG TAB PO SCH (09:17)
[2022-12-20] MEDS: APIXABAN 5 MG TAB (ELIQUIS) PO SCH (09:17)
[2022-12-20] MEDS: AUGMENTIN 875 MG TAB PO SCH (09:17)
[2022-12-20 10:00] VITALS: BP 133/96; TEMP 97.9; O2SAT 95
[2022-12-20] MEDS ORDERED: LOPE2CAP PO (10:46)
[2022-12-20] MEDS ORDERED: AMOX875T2 PO (10:46)
[2022-12-20] MEDS ORDERED: POTA-150 PO (10:46)
[2022-12-20] MEDS ORDERED: LEVO1TAB40 PO (10:46)
[2022-12-20] MEDS: POTASSIUM CHLORIDE 10MEQ SR TABLET PO SCH ×2 (10:50→12:37)
[2022-12-20] MEDS ORDERED: POTA-151 PO (10:50)
== END 2022-12-20 13:40 | disposition home or self-care (01) | DRG 809 ==
LOC: M ED 11:35 → EDBD 11:35 → M ED INP 16:43 → M MS5PR 21:08 → OBSVTOIN 12-19 15:22
PROVIDERS: ADMIT Student in an Organized Health Care Education/Training Program; ATTEND Student in an Organized Health Care Education/Training Program
DX: D70.9 Neutropenia, unspecified (principal); K52.1 Toxic gastroenteritis and colitis; C18.7 Malignant neoplasm of sigmoid colon; E66.2 Morbid (severe) obesity with alveolar hypoventilation; D47.1 Chronic myeloproliferative disease; I12.9 Hypertensive chronic kidney disease with stage 1 through stage 4 chronic kidney disease, or unspecified chronic kidney disease; E87.6 Hypokalemia; J45.909 Unspecified asthma, uncomplicated; M10.9 Gout, unspecified; N40.0 Benign prostatic hyperplasia without lower urinary tract symptoms; E78.5 Hyperlipidemia, unspecified; N18.30 Chronic kidney disease, stage 3 unspecified; D47.3 Essential (hemorrhagic) thrombocythemia; M19.90 Unspecified osteoarthritis, unspecified site; K80.20 Calculus of gallbladder without cholecystitis without obstruction; R50.81 Fever presenting with conditions classified elsewhere; R16.1 Splenomegaly, not elsewhere classified; T45.1X5A Adverse effect of antineoplastic and immunosuppressive drugs, initial encounter; D75.89 Other specified diseases of blood and blood-forming organs; Z20.822 Contact with and (suspected) exposure to COVID-19; Z90.49 Acquired absence of other specified parts of digestive tract; Z79.899 Other long term (current) drug therapy; Z79.01 Long term (current) use of anticoagulants; Z79.82 Long term (current) use of aspirin; Z79.2 Long term (current) use of antibiotics

== ENCOUNTER → 2022-12-23 | Outpatient (REF) | payer MEDICARE, OTHER ==
[~2022-12-23] MED LIST changes: +CYCL-707 PO; +FLUT1BLS5 NARES; +LEVO1TAB40 PO; +LOPE2CAP PO; +POTA-150 PO; +PROCHLORPER; +RA B1TAB7 PO; +VITA500C24 PO; +VITA500T40 PO
[2022-12-23 17:44] LABS: APPEARANCE, URINE HAZY (CLEAR); BACTERIA, URINE AUTO NEGATIVE (NEGATIVE); BILIRUBIN, URINE AUTO NEGATIVE (NEGATIVE); BLOOD, URINE BLOOD 3+ (NEGATIVE); COLOR, URINE YELLOW (YELLOW); GLUCOSE, URINE (UA) AUTO NEGATIVE (NEGATIVE); KETONE, URINE AUTO NEGATIVE (NEGATIVE); LEUKOCYTE ESTERASE, URINE AUTO NEGATIVE (NEGATIVE); MUCUS, URINE SMALL (NEGATIVE); NITRITE, URINE AUTO NEGATIVE (NEGATIVE); PROTEIN, URINE AUTO 2+ mg/dL (NEGATIVE); RBC, URINE AUTO TNTC /HPF (0-3); SPECIFIC GRAVITY URINE AUTO 1.016 (1.002-1.035); SQUAMOUS EPITHELIAL CELL UR AU 0 /HPF (0-6); UROBILINOGEN, URINE AUTO 0.2 mg/dL (0.0-2.0); WBC, URINE AUTO 3 /HPF (0-3)
== END ==
LOC: M LAB REF 16:28
PROVIDERS: ATTEND Nurse Practitioner Family
DX: R31.9 Hematuria, unspecified (principal)

== ENCOUNTER 2023-04-18 14:37 | Observation (INO) | payer MEDICARE, OTHER ==
[~2023-04-18] VITALS: Ht 180.3 cm; Wt 130.0 kg
[~2023-04-18 14:37] MED LIST changes: +CEPH500C PO; +DEXA0.5E2 PO; -FLUT50SP17; +FLUTISP; +HYDR-3713 PO; +TRIA0.1P12; +VALA1TAB5 PO; +ZYPR5TAB2 PO; +[UNRECOGNIZED DRUG - CODE]
[2023-04-18 17:31] LABS: HEMATOCRIT 44.3 % (42.0-52.0); MEAN CORPUSCULAR HEMOGLOBIN 30.5 pg (27.0-33.0); PLATELET COUNT, AUTOMATED 498 10^3/uL (150-450); RED BLOOD COUNT 5.09 10^6/uL (4.30-6.10)
[2023-04-18 17:34] LABS: WHITE BLOOD COUNT 12.2 10^3/uL (4.0-10.0)
[2023-04-18 17:35] LABS: HEMOGLOBIN 15.5 g/dl (13.5-17.5)
[2023-04-18 17:42] LABS: LIPASE 48 U/L (12-53)
[2023-04-18 17:44] LABS: ALBUMIN 3.7 G/DL (3.2-5.2); ALKALINE PHOSPHATASE 148 U/L (46-116); ALT/SGPT 23 U/L (7.0-40); AST/SGOT 25 U/L (<34); BILIRUBIN,DIRECT 0.4 MG/DL (<0.4); BILIRUBIN,TOTAL 1.2 MG/DL (0.3-1.2); BLOOD UREA NITROGEN 20 MG/DL (9-23); CALCIUM LEVEL 9.5 MG/DL (8.3-10.6); CARBON DIOXIDE LEVEL 25 MMOL/L (20-31); CHLORIDE LEVEL 103 MMOL/L (98-107); CREATININE FOR GFR 1.69 MG/DL (0.70-1.30); GLOMERULAR FILTRATION RATE 43.4 (>49); GLUCOSE, FASTING 96 MG/DL (74-106); POTASSIUM SERUM 3.4 MMOL/L (3.5-5.1); SODIUM LEVEL 139 MMOL/L (136-145)
[2023-04-18 18:10] LABS: ATYPICAL LYMPH 8 % (0-5); EOSINOPHILS 1 % (0-3); LYMPHOCYTES 5 % (16-44); MONOCYTES 6 % (0-5); NEUTROPHILS 79 % (28-66)
[2023-04-18 18:13] LABS: PLATELET ESTIMATE INCREASED (NORMAL)
[2023-04-18 19:25] LABS: CK-MB VALUE MASS < 1.0 NG/ML (<3.6)
[2023-04-18 19:26] LABS: CPK CREATINE PHOSPHOKINASE 52 U/L (46-171); MB/CK RELATIVE INDEX 1.92 (< OR =4)
[2023-04-18] MEDS: ONDANSETRON 4MG 2ML VIAL IV ONE (19:36)
[2023-04-18] MEDS: MORPHINE 4 MG/ML 1ML VIAL IV ONE (19:36)
[2023-04-18] MEDS: NS 1,000 ML IV ONE (19:36)
[2023-04-18 20:51] LABS: RSV AMPLIFICATION NEGATIVE (NEGATIVE)
[2023-04-18] MEDS ORDERED: ISOVUE-370 76% 100ML VIAL As Ordered ONE (21:13)
[2023-04-19] MEDS: NS 1,000 ML IV ONE (00:34)
[2023-04-19] MEDS: BISACODYL 10MG SUPP PR SCH (02:00)
[2023-04-19] MEDS: metroNIDAZOLE 500 MG in IV 1 EA IV SCH (03:14)
[2023-04-19] MEDS: KCL 10MEQ/100ML SWI (KRUN) 10 MEQ in IV 1 EA IV ONE (03:14)
[2023-04-19] MEDS: LR 1,000 ML IV SCH (03:14)
[2023-04-19] MEDS: DOXYCYCLINE HYCLATE 100 MG in D5W MINI-BAG PLUS 100 ML IV SCH (03:15)
[2023-04-19] MEDS: METOCLOPRAMIDE INJ 10MG/2ML VIAL IV PRN (06:39)
[2023-04-19] MEDS: ONDANSETRON 4MG 2ML VIAL IV PRN (06:39)
[2023-04-19] MEDS: MORPHINE 2 MG/ML 1ML VIAL IV PRN (06:40)
[2023-04-19 07:01] VITALS: BP 157/74; TEMP 98.1; O2SAT 81
[2023-04-19 07:22] VITALS: TEMP 99.5
[2023-04-19 07:53] LABS: BASO # 0.1 10^3/uL (0.0-0.2); BASO % 0.5 % (0.0-1.0); EOS # 0.1 10^3/uL (0.0-0.5); EOS % 0.9 % (0.0-3.0); HEMOGLOBIN 13.7 g/dl (13.5-17.5); LYMPH # 1.5 10^3/uL (1.5-5.0); LYMPH % 13.2 % (24.0-44.0); MEAN CORPUSCULAR HGB CONC 34.3 g/dl (32.0-36.5); MEAN CORPUSCULAR VOLUME 87.7 fl (80.0-96.0); MONO # 1.2 10^3/uL (0.0-0.8); MONO % 10.4 % (2.0-8.0); NEUTROPHILS # 8.1 10^3/uL (1.5-8.5); NEUTROPHILS % 69.3 % (36.0-66.0); PLATELET COUNT, AUTOMATED 423 10^3/uL (150-450); RED BLOOD COUNT 4.56 10^6/uL (4.30-6.10); WHITE BLOOD COUNT 11.7 10^3/uL (4.0-10.0)
[2023-04-19] MEDS: FLEET ENEMA PR ONE (08:12)
[2023-04-19 08:31] LABS: ALBUMIN 3.2 G/DL (3.2-5.2); BILIRUBIN,TOTAL 1.1 MG/DL (0.3-1.2); CALCIUM LEVEL 8.3 MG/DL (8.3-10.6); CREATININE FOR GFR 1.43 MG/DL (0.70-1.30); GLOMERULAR FILTRATION RATE 52.7 (>49); MAGNESIUM LEVEL 1.7 MG/DL (1.8-2.4); POTASSIUM SERUM 3.4 MMOL/L (3.5-5.1)
[2023-04-19] MEDS: ACETAMINOPHEN TAB 650MG DOSE (2X325MG) PO PRN (09:34)
[2023-04-19] MEDS ORDERED: ALBU8.5H INH (10:00)
[2023-04-19] MEDS ORDERED: ELIQ5TAB PO (10:00)
[2023-04-19] MEDS ORDERED: LORA-930 PO (10:14)
[2023-04-19] MEDS ORDERED: FLON1SPR (10:14)
[2023-04-19] MEDS ORDERED: COLC0.6T47 PO (10:14)
[2023-04-19] MEDS ORDERED: LIDVISCBTL SSP (10:18)
[2023-04-19] MEDS ORDERED: HOME MED LIST COMPLETE! XX SCH (10:25)
[2023-04-19] MEDS ORDERED: HEPARIN SOD (PORCINE) 5000UNITS/ML 1ML VIAL/SYRINGE SC SCH (14:00)
[2023-04-19] MEDS ORDERED: ONDA4TAB6 PO (14:11)
[2023-04-19] MEDS ORDERED: DOXY-444 PO (14:11)
[2023-04-19] MEDS ORDERED: METR-265 PO (14:11)
[2023-04-19] MEDS ORDERED: ONDA-83 PO (14:18)
== END 2023-04-19 16:00 | disposition home or self-care (01) ==
LOC: M ED 14:37 → M ED INP 14:38
PROVIDERS: ADMIT Internal Medicine; ATTEND Internal Medicine
DX: R11.2 Nausea with vomiting, unspecified (principal); R91.8 Other nonspecific abnormal finding of lung field; C18.9 Malignant neoplasm of colon, unspecified; Z90.49 Acquired absence of other specified parts of digestive tract; D47.3 Essential (hemorrhagic) thrombocythemia; I12.9 Hypertensive chronic kidney disease with stage 1 through stage 4 chronic kidney disease, or unspecified chronic kidney disease; N18.30 Chronic kidney disease, stage 3 unspecified; G47.33 Obstructive sleep apnea (adult) (pediatric); M10.9 Gout, unspecified; K21.9 Gastro-esophageal reflux disease without esophagitis; R10.9 Unspecified abdominal pain; K59.00 Constipation, unspecified; R94.31 Abnormal electrocardiogram [ECG] [EKG]; R05.9 Cough, unspecified; Z79.899 Other long term (current) drug therapy; Z79.51 Long term (current) use of inhaled steroids; Z79.01 Long term (current) use of anticoagulants
CPT/HCPCS: 36415; 71045; 74177; 80048; 80053; 80076; 82550; 82553; 83605; 83690; 83735; 84484; 85025; 87040; 87631; 93005; 96361; 96365; 96366; 96368; 96375; 96376; 97161; 97165; 99284; J1836; J2405; J2765; Q9967

== ENCOUNTER → 2023-05-05 | Outpatient (CLI) | payer MEDICARE, OTHER ==
[~2023-05-05] MED LIST changes: +COLC0.6T47 PO; +DOXY-444 PO; +FLON1SPR; +ISOVUE-370 76% 100ML VIAL As Ordered ONE; +LIDVISCBTL SSP; +LORA-930 PO; +ONDA-83 PO; +ONDA4TAB6 PO
== END ==
LOC: M RAD 08:32
PROVIDERS: ATTEND Nurse Practitioner
DX: C08.9 Malignant neoplasm of major salivary gland, unspecified (principal)
CPT/HCPCS: 70491; 71260; Q9967

== ENCOUNTER → 2023-09-01 | Outpatient (CLI) | payer MEDICARE, OTHER ==
[~2023-09-01] MED LIST changes: +DOXY-440 PO; -DOXY-444 PO; +GASTROGRAFIN SOLUTION 30ML As Ordered ONE; +ONDA-282 PO; -ONDA4TAB6 PO; -POTA10CA60 PO; +POTA10CA70 PO
== END ==
LOC: M RAD 12:29
PROVIDERS: ATTEND Internal Medicine Hematology & Oncology
DX: C18.9 Malignant neoplasm of colon, unspecified (principal); R91.1 Solitary pulmonary nodule
CPT/HCPCS: 71260; 74177; Q9963; Q9967

== ENCOUNTER 2023-12-28 06:27 | Day surgery (SDC) | payer MEDICARE ==
[~2023-12-28] VITALS: Ht 180.3 cm; Wt 126.1 kg
[~2023-12-28 06:27] MED LIST changes: +ECOT81TA5 PO; +FLUT1BLS5; -GASTROGRAFIN SOLUTION 30ML As Ordered ONE; -ISOVUE-370 76% 100ML VIAL As Ordered ONE; +NS 250 ML IV ONE; +OLME40TA PO
[2023-12-28] MEDS ORDERED: propofoL 200 MG/20 ML VIAL As Ordered ONE (06:57)
[2023-12-28 07:41] VITALS: TEMP 97.9
[2023-12-28 08:06] VITALS: BP 141/87; O2SAT 94
== END 2023-12-28 08:07 | disposition home or self-care (01) ==
LOC: M OPP 06:27
PROVIDERS: ATTEND Surgery
DX: K63.5 Polyp of colon (principal); Z85.038 Personal history of other malignant neoplasm of large intestine; K64.1 Second degree hemorrhoids; I10 Essential (primary) hypertension; E78.5 Hyperlipidemia, unspecified; K21.9 Gastro-esophageal reflux disease without esophagitis; M19.90 Unspecified osteoarthritis, unspecified site; J45.909 Unspecified asthma, uncomplicated; G47.33 Obstructive sleep apnea (adult) (pediatric); Z99.89 Dependence on other enabling machines and devices; Z86.73 Personal history of transient ischemic attack (TIA), and cerebral infarction without residual deficits; Z92.21 Personal history of antineoplastic chemotherapy; Z79.51 Long term (current) use of inhaled steroids; Z79.82 Long term (current) use of aspirin; Z79.899 Other long term (current) drug therapy

== ENCOUNTER → 2024-01-05 | Outpatient (CLI) | payer MEDICAID, MEDICARE ==
[~2024-01-05] MED LIST changes: +GASTROGRAFIN SOLUTION 30ML As Ordered ONE; +ISOVUE-370 76% 100ML VIAL As Ordered ONE; -NS 250 ML IV ONE
== END ==
LOC: M RAD 12:06
PROVIDERS: ATTEND Specialist
DX: C18.7 Malignant neoplasm of sigmoid colon (principal); R91.8 Other nonspecific abnormal finding of lung field; R16.1 Splenomegaly, not elsewhere classified
CPT/HCPCS: 71260; 74177; Q9963; Q9967

== ENCOUNTER → 2024-02-06 | Outpatient (CLI) | payer MEDICARE ==
[~2024-02-06] VITALS: Ht 180.3 cm; Wt 130.0 kg
[~2024-02-06] MED LIST changes: -ADV250INH INH; +ADVA1AER9 INH; -GASTROGRAFIN SOLUTION 30ML As Ordered ONE; -ISOVUE-370 76% 100ML VIAL As Ordered ONE; +LIDOCAINE 1% MDV 20ML VIAL As Ordered ONE; +MIDAZOLAM INJ 2MG/2ML VIAL As Ordered ONE; +NS (Normal Saline) 0.9% 1,000 ML IV SCH; +ceFAZolin 1GM VIAL As Ordered ONE; +ceFAZolin 2 GM/D5W 50 ML IV BAG As Ordered ONE; +ceFAZolin SOD 1 GM in DEXTROSE 5% (D5W) ADV/MINI-BAG 50 ML IV ONE; +ceFAZolin SOD 2 GM in IV 1 EA IV ONE; +fentaNYL 100 MCG/2 ML INJECTION As Ordered ONE
[2024-02-06 10:12] VITALS: TEMP 97.5
[2024-02-06] MEDS: ceFAZolin SOD 1 GM in DEXTROSE 5% (D5W) ADV/MINI-BAG 50 ML IV ONE (10:56)
[2024-02-06] MEDS: ceFAZolin SOD 2 GM in IV 1 EA IV ONE (10:56)
[2024-02-06 13:15] VITALS: BP 178/99; O2SAT 97
== END ==
LOC: M IRPRO 09:55
PROVIDERS: ATTEND Specialist
DX: C18.9 Malignant neoplasm of colon, unspecified (principal)
CPT/HCPCS: 36590; 99152; J0690; J2250; J3010

== ENCOUNTER → 2024-04-05 | Outpatient (REF) | payer MEDICARE ==
[~2024-04-05] MED LIST changes: -LIDOCAINE 1% MDV 20ML VIAL As Ordered ONE; -MIDAZOLAM INJ 2MG/2ML VIAL As Ordered ONE; -NS (Normal Saline) 0.9% 1,000 ML IV SCH; -ceFAZolin 1GM VIAL As Ordered ONE; -ceFAZolin 2 GM/D5W 50 ML IV BAG As Ordered ONE; -ceFAZolin SOD 1 GM in DEXTROSE 5% (D5W) ADV/MINI-BAG 50 ML IV ONE; -ceFAZolin SOD 2 GM in IV 1 EA IV ONE; -fentaNYL 100 MCG/2 ML INJECTION As Ordered ONE
[2024-04-05 15:09] LABS: URIC ACID 6.7 MG/DL (3.7-9.2)
[2024-04-05 15:11] LABS: C REACTIVE PROTEIN QUANTITATIV < 0.50 MG/DL (<1.0)
== END ==
LOC: M LAB REF 13:08
PROVIDERS: ATTEND Physician Assistant Medical
DX: M15.9 Polyosteoarthritis, unspecified (principal)

== ENCOUNTER 2024-05-01 10:32 | Emergency (ER) | payer MEDICARE ==
[~2024-05-01] VITALS: Ht 180.3 cm; Wt 133.8 kg
[2024-05-01] MEDS ORDERED: OXYC-517 PO (16:17)
[2024-05-01 16:27] VITALS: BP 184/98; TEMP 95.8; O2SAT 97
== END 2024-05-01 16:29 | disposition home or self-care (01) ==
LOC: M ED 10:32
DX: M17.11 Unilateral primary osteoarthritis, right knee (principal); W00.0XXA Fall on same level due to ice and snow, initial encounter; Y92.009 Unspecified place in unspecified non-institutional (private) residence as the place of occurrence of the external cause; I10 Essential (primary) hypertension; J45.909 Unspecified asthma, uncomplicated; Z85.038 Personal history of other malignant neoplasm of large intestine; Z86.2 Personal history of diseases of the blood and blood-forming organs and certain disorders involving the immune mechanism; Z79.82 Long term (current) use of aspirin; Z79.899 Other long term (current) drug therapy

== ENCOUNTER → 2024-06-23 | Outpatient (CLI) | payer MEDICARE ==
[~2024-06-23] MED LIST changes: +OXYC-517 PO
[2024-06-23 10:10] LABS: BASO % 0.9 % (0.0-1.0); EOS # 0.2 10^3/uL (0.0-0.5); EOS % 4.7 % (0.0-3.0); HEMATOCRIT 42.2 % (42.0-52.0); LYMPH % 30.6 % (24.0-44.0); MEAN CORPUSCULAR HEMOGLOBIN 29.8 pg (27.0-33.0); MEAN CORPUSCULAR HGB CONC 33.2 g/dl (32.0-36.5); MEAN CORPUSCULAR VOLUME 89.8 fl (80.0-96.0); MONO # 0.4 10^3/uL (0.0-0.8); MONO % 11.2 % (2.0-8.0); NEUTROPHILS # 1.8 10^3/uL (1.5-8.5); PLATELET COUNT, AUTOMATED 605 10^3/uL (150-450); WHITE BLOOD COUNT 3.4 10^3/uL (4.0-10.0)
[2024-06-23 10:40] LABS: ALBUMIN 3.4 G/DL (3.2-5.2); BILIRUBIN,TOTAL 0.8 MG/DL (0.3-1.2); CALCIUM LEVEL 8.2 MG/DL (8.3-10.6); CREATININE FOR GFR 1.61 MG/DL (0.70-1.30); GLOMERULAR FILTRATION RATE 46.6 (>49); POTASSIUM SERUM 4.4 MMOL/L (3.5-5.1); TOTAL PROTEIN 6.2 G/DL (5.7-8.2)
== END ==
LOC: M LAB 09:36
PROVIDERS: ATTEND Specialist
DX: C18.9 Malignant neoplasm of colon, unspecified (principal)

== ENCOUNTER → 2024-06-25 | Outpatient (CLI) | payer MEDICARE ==
[~2024-06-25] MED LIST changes: +ISOVUE-370 76% 100ML VIAL As Ordered ONE
== END ==
LOC: M RAD 12:12
PROVIDERS: ATTEND Specialist
DX: C18.9 Malignant neoplasm of colon, unspecified (principal); Z90.49 Acquired absence of other specified parts of digestive tract; Z98.0 Intestinal bypass and anastomosis status; K57.90 Diverticulosis of intestine, part unspecified, without perforation or abscess without bleeding; K43.9 Ventral hernia without obstruction or gangrene; N32.3 Diverticulum of bladder; K40.20 Bilateral inguinal hernia, without obstruction or gangrene, not specified as recurrent
CPT/HCPCS: 71260; 74177; Q9967

== ENCOUNTER → 2024-09-06 | Outpatient (REF) | payer MEDICARE ==
[~2024-09-06] MED LIST changes: -ISOVUE-370 76% 100ML VIAL As Ordered ONE
== END ==
LOC: M LAB REF 12:45
PROVIDERS: ATTEND Physician Assistant Medical
DX: M15.9 Polyosteoarthritis, unspecified (principal); Z85.038 Personal history of other malignant neoplasm of large intestine

== ENCOUNTER → 2024-10-24 | Outpatient (REF) | payer MEDICARE ==
[~2024-10-24] MED LIST changes: -COLC0.6T47 PO; +COLC0.6T53 PO
== END ==
LOC: M LAB REF 12:21
PROVIDERS: ATTEND Physician Assistant Medical
DX: I50.9 Heart failure, unspecified (principal); I13.0 Hypertensive heart and chronic kidney disease with heart failure and stage 1 through stage 4 chronic kidney disease, or unspecified chronic kidney disease

== ENCOUNTER → 2024-12-07 | Outpatient (REF) | payer MEDICARE ==
[2024-12-11 19:48] LABS: LYME TOTAL ANTIBODY CIA <= 0.90 Index (<=0.90)
== END ==
LOC: M LAB REF 12:11
PROVIDERS: ATTEND Physician Assistant Medical
DX: M15.9 Polyosteoarthritis, unspecified (principal)